=== PATIENT | male | born 1950 | race Caucasian/White ===

== ENCOUNTER → 2016-11-01 | Outpatient (CLI) | payer MEDICARE, BC ==
[2014-07-19 15:25] VITALS: BP 150/78
[~2016-11-01] MED LIST: ALLO300T PO; AMLO1CAP12 PO; BUPR-192 PO; BUPR150T15 PO; CELE200C PO; CRESTOR10 MG PO; CRESTOR20 MG PO; CRESTOR40 MG PO; DIAZ10TA4 PO; DOCU-109 PO; DULO60CA6 PO; FENO54TA PO; FURO80TA72 PO; GABA-586 PO; GLIM4TAB PO; GLIM4TAB2 PO; INSU100I13 SQ; LIDO20SO PO; METF500T PO; METF500T25 PO; METF500T4 PO; METH10TA2 PO; Methadone Hcl PO; Nicotine TD; OMEP20CA9 PO; POTA20TA12 PO; TIZA4TAB PO; TIZA4TAB8 PO; VENL75CA6 PO
--- NOTE | 2016-11-01 10:06 | RAD ---
Indication: Smoker and evaluate for abdominal aortic aneurysm. Proximal abdominal aorta measures 2.3 cm. The mid aorta is 2.1 cm. The distal aorta is 2.2 cm. No aneurysm is seen. There are atherosclerotic changes present. The iliacs are nonaneurysmal. Impression: No evidence of abdominal aortic aneurysm.
== END | disposition home or self-care (01) ==
LOC: US 08:25
PROVIDERS: ATTEND Family Medicine
DX: Z00.01 Encounter for general adult medical examination with abnormal findings (principal); I70.0 Atherosclerosis of aorta; F17.200 Nicotine dependence, unspecified, uncomplicated
CPT/HCPCS: 76770

== ENCOUNTER 2016-11-23 20:05 | Emergency (ER) | payer MEDICARE, BC ==
[~2016-11-23] VITALS: Ht 320 cm; Wt 74.4 kg
[2016-11-23] MEDS ORDERED: IV NORMAL SALINE 1,000ML 1,000 ML IV SCH (20:25)
--- NOTE | 2016-11-23 20:33 | ED.ADGEN ---
Past History Past Medical History: Depression, Diabetes, Hypertension, Other Past Surgical History: Other Smoking: Greater than 1 pack/day Alcohol Use: None Drug Use: None Adult General Chief Complaint Chief Complaint Fall [facility] HPI Patient is a 66 year old male who presents with a fall. He was walking his dog when the dog took off and he fell forwards landing on his right hand and forehead. He complains of a headache in the posterior aspect of his head and right hand pain. He denies any chest pain shortness of breath nausea vomiting. He is slurring his words a little bit his states that this can happen from time to time and it wasn't happening prior. He is alert and oriented 3. He does take methadone and Valium for chronic pain and did take these prior to arrival. Review of Systems Review of Systems Constitutional: Denies fever or chills [] Eyes: Denies change in visual acuity, redness, or eye pain [] HENT: Denies nasal congestion or sore throat [] Respiratory: Denies cough or shortness of breath [] Cardiovascular: No additional information not addressed in HPI [] GI: Denies abdominal pain, nausea, vomiting, bloody stools or diarrhea [] : Denies dysuria or hematuria [] Musculoskeletal: Denies back pain, positive for right hand pain Integument: Denies rash or skin lesions [] Neurologic: Denies focal weakness or sensory changes positive for posterior headache Endocrine: Denies polyuria or polydipsia [] Current Medications Current Medications Current Medications Medications (Trade) Dose Ordered Sig/Claudia Start Time Stop Time Status Last Admin Dose Admin Sodium Chloride 1,000 ml @ 1,000 mls/hr Q1H 11/23/16 20:25 11/23/16 21:24 DC 11/23/16 20:25 1,000 MLS/HR Allergies Allergies Allergies Coded Allergies Type Severity Reaction Last Updated Verified Sulfa (Sulfonamide Antibiotics) Allergy Intermediate 07/18/14 No liraglutide Allergy Intermediate 07/18/14 No quinine Allergy Intermediate 07/18/14 Yes Physical Exam Physical Exam Constitutional: Well developed, well nourished, no acute distress, non-toxic appearance. [] HENT: Normocephalic, atraumatic, bilateral external ears normal, oropharynx moist, no oral exudates, nose normal. [] Eyes: PERRLA, EOMI, conjunctiva normal, no discharge. [] Neck: Normal range of motion, no tenderness, supple, no stridor. [] Cardiovascular:Heart rate regular rhythm, no murmur [] Lungs & Thorax: Bilateral breath sounds clear to auscultation [] Abdomen: Bowel sounds normal, soft, no tenderness, no masses, no pulsatile masses. [] Skin: Warm, dry, no erythema, no rash. [] Back: No tenderness, no CVA tenderness. [] Extremities: Tender to palpation and ecchymosis over the right fifth medical carpal, able to flex and extend at the MCP and PIP DIP joints, radial ulnar median nerve distributions intact to sensation and motion., no cyanosis, no clubbing, ROM intact, no edema. [] Neurologic: Alert and oriented X 3, normal motor function, normal sensory function, no focal deficits noted. [] Psychologic: Affect normal, judgement normal, mood normal. [] Current Patient Data Vital Signs Vital Signs Date Time Temp Pulse Resp B/P (MAP) Pulse Ox O2 Delivery O2 Flow Rate FiO2 11/23/16 21:00 98.1 71 16 139/65 (89) 98 Room Air Lab Results Laboratory Tests Test 11/23/16 20:20 11/23/16 20:40 11/23/16 21:40 White Blood Count 7.3 x10^3/uL (4.0-11.0) Red Blood Count 3.90 x10^6/uL (4.30-5.70) L Hemoglobin 11.5 g/dL (13.0-17.5) L Hematocrit 34.5 % (39.0-53.0) L Mean Corpuscular Volume 88 fL (79-100) Mean Corpuscular Hemoglobin 30 pg (25-35) Mean Corpuscular Hemoglobin Concent 34 g/dL (31-37) Red Cell Distribution Width 14.8 % (11.5-14.5) H Platelet Count 188 x10^3/uL (140-400) Neutrophils (%) (Auto) 69 % (31-73) Lymphocytes (%) (Auto) 21 % (24-48) L Monocytes (%) (Auto) 6 % (0-9) Eosinophils (%) (Auto) 3 % (0-3) Basophils (%) (Auto) 1 % (0-3) Neutrophils # (Auto) 5.1 x10^3uL (1.8-7.7) Lymphocytes # (Auto) 1.5 x10^3/uL (1.0-4.8) Monocytes # (Auto) 0.5 x10^3/uL (0.0-1.1) Eosinophils # (Auto) 0.2 x10^3/uL (0.0-0.7) Basophils # (Auto) 0.0 x10^3/uL (0.0-0.2) Prothrombin Time 10.6 SEC (9.4-11.4) Prothrombin Time INR 1.0 (0.9-1.1) PTT 25 SEC (23-33) Sodium Level 144 mmol/L (136-145) Potassium Level 3.9 mmol/L (3.5-5.1) Chloride Level 107 mmol/L (98-107) Carbon Dioxide Level 30 mmol/L (21-32) Anion Gap 7 (6-14) Blood Urea Nitrogen 18 mg/dL (8-26) Creatinine 0.7 mg/dL (0.7-1.3) Estimated GFR (Cockcroft-Gault) 113.2 Glucose Level 214 mg/dL (70-99) H Calcium Level 8.6 mg/dL (8.5-10.1) Total Bilirubin 0.2 mg/dL (0.2-1.0) Direct Bilirubin 0.1 mg/dL (0.0-0.2) Aspartate Amino Transferase (AST) 13 U/L (15-37) L Alanine Aminotransferase (ALT) 18 U/L (16-63) Alkaline Phosphatase 70 U/L (46-116) Creatine Kinase 47 U/L (39-308) Creatine Kinase MB (Mass) 0.5 ng/mL (0.0-3.6) Creatine Kinase MB Relative Index 1.1 % (0-4) Total Protein 6.7 g/dL (6.4-8.2) Albumin 3.3 g/dL (3.4-5.0) L Lipase 59 U/L (73-393) L Ethyl Alcohol Level < 10 mg/dL (0-10) Lactic Acid Level 1.2 mmol/L (0.4-2.0) Urine Collection Type Unknown Urine Color Yellow Urine Clarity Cloudy Urine pH 8.5 Urine Specific Stephenson 1.015 Urine Protein Neg (NEG-TRACE) Urine Glucose (UA) Neg mg/dL (NEG) Urine Ketones (Stick) Neg mg/dL (NEG) Urine Blood Neg (NEG) Urine Nitrite Neg (NEG) Urine Bilirubin Neg (NEG) Urine Urobilinogen Dipstick 0.2 mg/dL (0.2 mg/dL) Urine Leukocyte Esterase Neg (NEG) Urine RBC 0 /HPF (0-2) Urine WBC Occ /HPF (0-4) Urine Squamous Epithelial Cells Occ /LPF Urine Amorphous Sediment Present /HPF Urine Bacteria 0 /HPF (0-FEW) Urine Opiates Screen Neg (NEG) Urine Methadone Screen Pos (NEG) Urine Barbiturates Neg (NEG) Urine Phencyclidine Screen Neg (NEG) Urine Amphetamine/Methamphetamine Neg (NEG) Urine Benzodiazepines Screen Pos (NEG) Urine Cocaine Screen Neg (NEG) Urine Cannabinoids Screen Pos (NEG) Urine Ethyl Alcohol Neg (NEG) EKG EKG EKG shows sinus rhythm left axis deviation, T-wave inversions in 1 and aVL, no ST elevations appreciated, QTC 139 ms, as interpreted by me. EKG is similar to one performed in October 03, 2013 except for the T-wave inversions in 1. Radiology/Procedures Radiology/Procedures 3 views of the right hand does not show any fractures, malalignment's, foreign bodies, as interpreted by me. One view chest x-ray does not show any focal consolidations, pneumothorax, bony abnormalities, [place] [address] IMAGING REPORT Signed PATIENT: JANINE CALIX ACCOUNT: [id number] : 1950 LOCATION: ER AGE: 66 SEX: M EXAM STATUS: PRE ER ORD. PHYSICIAN: JOHN HERNANDEZ MD REASON: fall, slurring words PROCEDURE: CT HEAD AND CERVICAL SPINE WO INDICATION: [id number] Injury from fall tonight, hit right side of forehead, swelling, neck pain. Old images sent from 05/21/16 for comparison. COMPARISON: May 21, 2016 TECHNIQUE: Axial CT images obtained through the head and cervical spine without intravenous contrast. Coronal and sagittal reformats processed of cervical spine. One or more of the following individualized dose reduction techniques were utilized for this examination: 1. Automated exposure control; 2. Adjustment of the mA and/or kV according to patient size; 3. Use of iterative reconstruction technique. FINDINGS: Head: No intracranial hemorrhage. No midline shift. Basal cisterns patents. Ventricles and sulci are within normal limits. No acute osseous abnormality. Orbits and paranasal sinuses unremarkable. Cervical: No definite acute fracture. No significant malalignment. No evidence of perivertebral hematoma. Degenerative changes throughout the cervical spine with osteophyte formation with central canal and neural foraminal stenosis. IMPRESSION: No acute intracranial hemorrhage. No definite acute fracture or dislocation of the cervical spine. Electronically signed by: Bo Vicente MD (11/23/2016 9:26 PM) DICTATED AND SIGNED BY: BO VICENTE MD DATE: 11/23/162116 CC: MONET DICKINSON MD; JOHN HERNANDEZ MD ~ Course & Med Decision Making Course & Med Decision Making Pertinent Labs and Imaging studies reviewed. (See chart for details) CT head neck is nonacute, hand x-ray also nonacute. Labs do not show any acute abnormalities. His slurring has improved his UDS is positive for benzos, marijuana, methadone. He states he has plenty pain meds at home for his contusion. He is being discharged with return precautions this time. Final Impression Final Impression Closed head injury Right hand contusion Problems: Dragon Disclaimer Dragon Disclaimer This electronic medical record was generated, in whole or in part, using a voice recognition dictation system. JOHN HERNANDEZ MD Nov 23, 2016 20:33
[2016-11-23 20:57] LABS: BASO % 1 % (0-3); EOS # 0.2 x10^3/uL (0.0-0.7); EOS % 3 % (0-3); HEMATOCRIT 34.5 % (39.0-53.0); HEMOGLOBIN 11.5 g/dL (13.0-17.5); LYMPH # 1.5 x10^3/uL (1.0-4.8); LYMPH % 21 % (24-48); MEAN CORPUSCULAR HEMOGLOBIN 30 pg (25-35); MEAN CORPUSCULAR HGB CONC 34 g/dL (31-37); MEAN CORPUSCULAR VOLUME 88 fL (79-100); MONO # 0.5 x10^3/uL (0.0-1.1); MONO % 6 % (0-9); NEUT # 5.1 x10^3uL (1.8-7.7); NEUT % 69 % (31-73); PLATELET COUNT 188 x10^3/uL (140-400); RED CELL DISTRIBUTION WIDTH 14.8 % (11.5-14.5); WHITE BLOOD COUNT 7.3 x10^3/uL (4.0-11.0)
[2016-11-23 21:00] VITALS: BP 139/65
[2016-11-23 21:14] LABS: ALBUMIN 3.3 g/dL (3.4-5.0); CALCIUM 8.6 mg/dL (8.5-10.1); CREATININE 0.7 mg/dL (0.7-1.3); DIRECT BILIRUBIN 0.1 mg/dL (0.0-0.2); GFR 113.2; POTASSIUM 3.9 mmol/L (3.5-5.1); TOTAL BILIRUBIN 0.2 mg/dL (0.2-1.0); TOTAL PROTEIN 6.7 g/dL (6.4-8.2)
--- NOTE | 2016-11-23 21:30 | RAD ---
INDICATION: [id number] Injury from fall tonight, hit right side of forehead, swelling, neck pain. Old images sent from 05/21/16 for comparison. COMPARISON: May 21, 2016 TECHNIQUE: Axial CT images obtained through the head and cervical spine without intravenous contrast. Coronal and sagittal reformats processed of cervical spine. One or more of the following individualized dose reduction techniques were utilized for this examination: 1. Automated exposure control; 2. Adjustment of the mA and/or kV according to patient size; 3. Use of iterative reconstruction technique. FINDINGS: Head: No intracranial hemorrhage. No midline shift. Basal cisterns patents. Ventricles and sulci are within normal limits. No acute osseous abnormality. Orbits and paranasal sinuses unremarkable. Cervical: No definite acute fracture. No significant malalignment. No evidence of perivertebral hematoma. Degenerative changes throughout the cervical spine with osteophyte formation with central canal and neural foraminal stenosis. IMPRESSION: No acute intracranial hemorrhage. No definite acute fracture or dislocation of the cervical spine. Electronically signed by: Zack Duarte MD (11/23/2016 9:26 PM)
[2016-11-23 22:16] LABS: AMPHETAMINE/METHAMPHETAMINE NEG (NEG); BARBITURATES NEG (NEG); BENZODIAZEPINES POS (NEG); CANNABINOIDS POS (NEG); COCAINE NEG (NEG); METHADONE POS (NEG); OPIATES NEG (NEG); PHENCYCLIDINE NEG (NEG)
[2016-11-23 22:19] LABS: BACTERIA,URINE 0 /HPF (0-FEW); BILIRUBIN,URINE NEG (NEG); CLARITY,URINE CLOUDY; COLOR,URINE YELLOW; GLUCOSE,URINE NEG (NEG); NITRITE,URINE NEG (NEG); RBC,URINE 0 /HPF (0-2); SQUAMOUS EPITHELIAL CELL,UR OCC /LPF; UROBILINOGEN,URINE 0.2 mg/dL (0.2 mg/dL); WBC,URINE OCC /HPF (0-4)
[2016-11-23 22:20] LABS: AMORPHOUS SEDIMENT,UR PRESENT /HPF
--- NOTE | 2016-11-24 06:09 | EKG ---
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
--- NOTE | 2016-11-24 07:47 | RAD ---
Indication: Right hand pain and swelling. Time of exam 2050 hours. There is soft tissue swelling noted about the dorsum of the hand. The metacarpals and phalanges appear intact. The carpus is unremarkable. No fractures are seen. Impression: Soft tissue swelling. No acute bony abnormality is detected.
--- NOTE | 2016-11-24 07:48 | RAD ---
Indication: Fall and weakness. Time of exam 6 hours. Correlation is made with prior study 05/21/2016. FINDINGS: The heart size is normal. The lungs are clear. No pleural effusion or pneumothorax is identified. The pulmonary vascularity is normal. IMPRESSION: No acute abnormality detected.
== END 2016-11-23 22:33 | disposition home or self-care (01) ==
LOC: ER 20:05
DX: S09.8XXA Other specified injuries of head, initial encounter (principal); S60.221A Contusion of right hand, initial encounter; I10 Essential (primary) hypertension; E11.9 Type 2 diabetes mellitus without complications; F17.200 Nicotine dependence, unspecified, uncomplicated; Z88.2 Allergy status to sulfonamides; Z88.8 Allergy status to other drugs, medicaments and biological substances; W19.XXXA Unspecified fall, initial encounter; Y93.K1 Activity, walking an animal; Y99.8 Other external cause status; Y92.89 Other specified places as the place of occurrence of the external cause
CPT/HCPCS: 36415; 70450; 71010; 72125; 73130; 80048; 80076; 80305; 80320; 81001; 82553; 83605; 83690; 85027; 85610; 85730; 93005; 96360; 96361; G0480; G0481; 99285-25; J7030

== ENCOUNTER 2017-08-02 09:54 | Emergency (ER) | payer MEDICARE, BC ==
[~2017-08-02] VITALS: Ht 320 cm; Wt 81.0 kg
[2017-08-02] MEDS ORDERED: IV NORMAL SALINE 1,000ML 1,000 ML IV SCH ×2 (10:24→12:38)
[2017-08-02 10:41] LABS: BASO % 0 % (0-3); EOS # 0.1 x10^3/uL (0.0-0.7); EOS % 2 % (0-3); HEMATOCRIT 40.4 % (39.0-53.0); HEMOGLOBIN 13.3 g/dL (13.0-17.5); LYMPH # 0.9 x10^3/uL (1.0-4.8); LYMPH % 18 % (24-48); MEAN CORPUSCULAR HEMOGLOBIN 30 pg (25-35); MEAN CORPUSCULAR HGB CONC 33 g/dL (31-37); MEAN CORPUSCULAR VOLUME 91 fL (79-100); MONO # 0.5 x10^3/uL (0.0-1.1); MONO % 9 % (0-9); NEUT # 3.6 x10^3uL (1.8-7.7); NEUT % 71 % (31-73); PLATELET COUNT 144 x10^3/uL (140-400); RED BLOOD COUNT 4.46 x10^6/uL (4.30-5.70); RED CELL DISTRIBUTION WIDTH 14.7 % (11.5-14.5)
[2017-08-02] MEDS ORDERED: IPRATRPIUM/ALBUTEROL 0.5/2.5MG 3 ML NEBU. NEB ONE (10:45)
[2017-08-02] MEDS ORDERED: methylPREDNISolone SOD SUCC PF 125 MG/2 ML VIAL. IV ONE (10:45)
[2017-08-02 10:57] LABS: ALBUMIN 3.2 g/dL (3.4-5.0); ALBUMIN/GLOBULIN RATIO 0.8 (1.0-1.7); CALCIUM 8.8 mg/dL (8.5-10.1); GFR 74.8; TOTAL BILIRUBIN 0.2 mg/dL (0.2-1.0); TOTAL PROTEIN 7.2 g/dL (6.4-8.2)
--- NOTE | 2017-08-02 11:12 | PHYS DOC ---
General Chief Complaint: SHORTNESS OF BREATH Stated Complaint: SOA Time Seen by MD: 10:04 Source: patient, family Exam Limitations: clinical condition Problems: History of Present Illness Initial Comments Patient is a 67-year-old male brought to the ED by his spouse with generalized fatigue. Spouse states that the patient was seen by his doctor on Saturday (Dr. Minor) and at that time his creatinine was elevated "twice his normal level." She states that since that time the patient has continued to be very sleepy and not eating or drinking much and so she decided to bring him in for evaluation. He's been taking an antibiotic prescribed by Dr. Minor uncertain of the name. Patient takes methadone and does appear to be medicated he falls asleep easily while you're talking with him but rouses easily as well. He denies any complaints at all. ED vitals: 98.8, 58, 20, 83/59, 80% room air increased to 91% on 2 L O2 nasal cannula. Patient denies any recent chest pain trouble breathing nausea diaphoresis headache or focal neurologic symptoms. Timing/Duration: other Severity: severe Modifying Factors: worse with medication, worse with movement, improves with rest Associated Symptoms: denies symptoms Allergies: Coded Allergies: Sulfa (Sulfonamide Antibiotics) (Unverified Allergy, Intermediate, 07/18/14 ) liraglutide (Unverified Allergy, Intermediate, 07/18/14) quinine (Verified Allergy, Intermediate, 07/18/14) Past Medical History Medical History: other (chronic pain, depression, diabetes, hypertension, COPD , obstructive sleep apnea, pneumothorax) Surgical History: other Social History Smoker: greater than 1 pack/day Alcohol: none Drugs: none Review of Systems Constitutional: see HPI Respiratory: denies cough, denies shortness of breath, denies wheezing Cardiovascular: denies chest pain, denies edema, denies palpitations, denies syncope Gastrointestinal: denies abdominal pain, denies diarrhea, denies nausea, denies vomiting Musculoskeletal: see HPI Psychiatric/Neurological: see HPI Physical Exam General Appearance: no apparent distress (sedate and lethargic on arrival, disheveled) Eyes: bilateral eye normal inspection, bilateral eye PERRL, bilateral eye EOMI Ear, Nose, Throat: hearing grossly normal, normal ENT inspection (dry membranes ), normal pharynx Neck: non-tender, supple Respiratory: respiratory distress, other (decreased breath sounds bilaterally with fair to good air movement and diffuse wheezes chest nontender) Cardiovascular: normal peripheral pulses, bradycardia Gastrointestinal: normal bowel sounds, non tender, soft Back: no CVA tenderness, no vertebral tenderness Extremities: non-tender, no pedal edema, no calf tenderness, pelvis stable Neurologic/Psychiatric: lug loader II-XII nml as tested, no motor/sensory deficits, normal mood/affect, other (lethargic appeared medicated initially, improves to alert and oriented 3) Skin: pallor (with poor turgor initially improved to normal color warm and dry) Orders, Labs, Meds EKG: sinus arrhythmia 58bpm, no ST segment elevation. Interpreted by me. ABG: pH 7.364, pCO2 44.4, pO2 45, BE 0, HCO3 25.3, TCO2 27, sO2 79, FIO2 21 Pertinent labs: BUN 32, creatinine 1, CO2 29 1205: Patient is now sitting up awake and alert talking on the phone with blood pressure 106/60 just about to finish the first liter normal saline bolus. 1240: Current blood pressure 101/61, O2 sat 91% on room air. I discussed the need for inpatient treatment with the patient at length. Patient states he will refuse admission he wants to go home at [birth year]. I advised him that is very likely if he goes home she will return to the same condition he was in at ED arrival or worse. He is currently alert and oriented 3 exhibits UCAR capacity and although I do disagree with his choice to go home he has the right to do so. Risks and benefits of staying versus leaving were discussed with him, risks of leaving included worsening of condition, loss of quality of life and/ or . Potential benefits of staying are early diagnosis and treatment of an easily treatable condition potentially lifesaving. After thoroughly discussing the issues the patient remains steadfast in his wish to be discharged. Patient' s spouse and I both strongly encourage the patient to agree to inpatient treatment but he would not. I discussed prednisone burst and close glycemic monitoring, discussed medications and hydration. Discussed signs and symptoms to monitor as well as urgent indications to return to the department. The patient and his spouse's questions were answered and they expressed agreement and understanding with the treatment departure instructions below. Impressions: Decreased alertness (overmedication with opiates versus hypoxia) Acute respiratory failure Severe dehydration COPD exacerbation Tobaccoism Noncompliance/AMA Departure Time of Disposition: 12:51 Disposition: 01 HOME, SELF-CARE Diagnosis: COPD Exacerbation, Hypovolemia, Acute on Chronic R Condition: GUARDED Patient Instructions: Chronic Obstructive Pulmonary Disease Exacerbation, Easy- to-Read, Dehydration, Adult, Uzug-ip-Cvhd, Hypoxemia Additional Instructions: As discussed inpatient treatment has been recommended to you and you have declined. Risks and benefits of staying versus leaving have been discussed with you, risks of leaving our potentially worsening of your condition, loss of quality of life and or . Benefits of staying are potentially life saving, early diagnosis and treatment of an underlying condition. Stop smoking seek medical assistance if necessary. Continue current medications and breathing treatments. Aggressive hydration with Gatorade and water. Drink fluids until your urine is clear. Prescription: Prednisone 20 mg twice daily for 5 days. Closely monitor your glucose as the prednisone will likely increase it, called Dr. Minor or return to the emergency department if your glucose increases significantly. Understand are welcome to return at any time. Follow-up with Dr. Minor on Saturday. Return to ED if you change your mind or if new/changing symptoms. PETER KING DO Aug 02, 2017 11:12
[2017-08-02 11:45] LABS: BGAS PH 7.36 (7.35-7.46)
[2017-08-02] MEDS ORDERED: PRED20TA PO (12:59)
[2017-08-02 13:20] VITALS: BP 110/73
--- NOTE | 2017-08-02 13:23 | RAD ---
INDICATION: Short of air, fatigue. TECHNIQUE: Upright portable chest radiograph was obtained. Comparison is not available. FINDINGS: The heart is upper limits of normal in size. The pulmonary vasculature appears mildly cephalized, even allowing for portable technique. There is atheromatous disease in the thoracic aorta. There is no focal airspace disease. There is no pleural effusion. There are degenerative changes at the right AC joint. Leads overlie the patient. IMPRESSION: Mild vascular congestion suspected. Electronically signed by: Esau Soto MD (08/02/2017 1:20 PM) [id number]
--- NOTE | 2017-08-02 19:08 | EKG ---
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 POSSIBLY ABNORMAL ECG RI6.01 Electronically Signed On 08-05-2017 16:12:47 BANK RECONCILIATOR by Guanako Zarco
== END 2017-08-02 13:20 | disposition home or self-care (01) ==
LOC: ER 09:54
DX: J44.1 Chronic obstructive pulmonary disease with (acute) exacerbation (principal); E86.1 Hypovolemia; J96.20 Acute and chronic respiratory failure, unspecified whether with hypoxia or hypercapnia; Z91.19 Patient's noncompliance with other medical treatment and regimen; I10 Essential (primary) hypertension; G89.29 Other chronic pain; G47.33 Obstructive sleep apnea (adult) (pediatric); E86.0 Dehydration; E11.9 Type 2 diabetes mellitus without complications; F17.200 Nicotine dependence, unspecified, uncomplicated; Z88.2 Allergy status to sulfonamides; Z88.8 Allergy status to other drugs, medicaments and biological substances
CPT/HCPCS: 99285; J2930; J7620; 36415; 71045; 80053; 82803; 83880; 84484; 85025; 93005; 94640; 96361; 96374; J7030

== ENCOUNTER 2017-08-04 11:50 | Inpatient (IN) | payer MEDICARE, BC ==
[~2017-08-04] VITALS: Ht 175.3 cm; Wt 74.4 kg
[~2017-08-04 11:50] MED LIST changes: +PRED20TA PO
[2017-08-04 13:07] LABS: BASO % 0 % (0-3); EOS % 0 % (0-3); HEMATOCRIT 37.7 % (39.0-53.0); HEMOGLOBIN 12.5 g/dL (13.0-17.5); LYMPH # 0.6 x10^3/uL (1.0-4.8); LYMPH % 12 % (24-48); MEAN CORPUSCULAR HEMOGLOBIN 30 pg (25-35); MEAN CORPUSCULAR HGB CONC 33 g/dL (31-37); MEAN CORPUSCULAR VOLUME 90 fL (79-100); MONO # 0.3 x10^3/uL (0.0-1.1); MONO % 5 % (0-9); NEUT # 4.2 x10^3uL (1.8-7.7); NEUT % 83 % (31-73); PLATELET COUNT 137 x10^3/uL (140-400); RED CELL DISTRIBUTION WIDTH 14.3 % (11.5-14.5); WHITE BLOOD COUNT 5.1 x10^3/uL (4.0-11.0)
--- NOTE | 2017-08-04 13:09 | RAD ---
AP PORTABLE CHEST Clinical Indication: shortness of breath. History of COPD Comparison: AP chest, 2 days ago. Findings: The cardiomediastinal silhouette is stable. Lungs are clear. There is no pneumothorax. No pleural effusion is appreciated. There is no acute bone abnormality. IMPRESSION: No acute cardiopulmonary process.
[2017-08-04 13:25] LABS: ALBUMIN 3.3 g/dL (3.4-5.0); ALBUMIN/GLOBULIN RATIO 0.9 (1.0-1.7); CREATININE 0.8 mg/dL (0.7-1.3); GFR 96.7; MAGNESIUM 1.2 mg/dL (1.8-2.4); POTASSIUM 4.8 mmol/L (3.5-5.1); TOTAL BILIRUBIN 0.2 mg/dL (0.2-1.0)
[2017-08-04 13:37] LABS: BACTERIA,URINE 0 /HPF (0-FEW); BILIRUBIN,URINE NEG (NEG); CLARITY,URINE CLEAR; COLOR,URINE YELLOW; GLUCOSE,URINE 100 mg/dL (NEG); NITRITE,URINE NEG (NEG); RBC,URINE RARE /HPF (0-2); UROBILINOGEN,URINE 0.2 mg/dL (0.2 mg/dL); WBC,URINE 0 /HPF (0-4)
[2017-08-04 13:38] LABS: SQUAMOUS EPITHELIAL CELL,UR OCC /LPF
[2017-08-04] MEDS ORDERED: IV NORMAL SALINE 1,000ML 1,000 ML IV ONE (13:45)
[2017-08-04] MEDS ORDERED: IV NORMAL SALINE 50ML 50 ML ONE (13:54)
[2017-08-04] MEDS ORDERED: PIPERACILLIN/TAZOBACTAM 3.375 GM VIAL IV ONE (13:54)
[2017-08-04] MEDS ORDERED: VANCOMYCIN 1 GM in IV NORMAL SALINE 250ML 250 ML IV ONE (14:00)
[2017-08-04] MEDS ORDERED: PIPERACILLIN/TAZOBACTAM 3.375 GM in IV NORMAL SALINE 50ML 50 ML IV ONE (14:00)
[2017-08-04] MEDS ORDERED: VANCOMYCIN 2 GM in IV NORMAL SALINE 500ML 500 ML IV ONE (14:30)
[2017-08-04] MEDS ORDERED: MAGNESIUM SULFATE 2GM 50 ML IV ONE ×2 (14:45→17:30)
--- NOTE | 2017-08-04 15:08 | PHYS DOC ---
Past History Past Medical History: Depression, Diabetes, Hypertension, Other Past Surgical History: Other Smoking: Greater than 1 pack/day Alcohol Use: None Drug Use: None Adult General Chief Complaint Chief Complaint: shortness of breath and cough HPI HPI 67-year-old male patient with history of COPD on nighttime home oxygen and currently not smoking complaining of increasing chronic shortness of breath for more than one week with productive and nonproductive cough associated with nasal congestion and generalized weakness and increasing confusion. Patient was seen by his primary care physician 5 days ago and diagnosed with increasing renal insufficiency. Patient was seen in this emergency room 3 days ago diagnosis of hypoxia and refused admission and discharged home with prescription of prednisone and antibiotic but he states his condition is not getting better. Patient had increase of confusion and generalized weakness and cough without fever, vomiting and diarrhea, chest pain, focal neuro deficit. Review of Systems Review of Systems Constitutional: Denies fever or chills [] Eyes: Denies change in visual acuity, redness, or eye pain [] HENT: Reports nasal congestion Respiratory: Reports cough and shortness of breath Cardiovascular: No additional information not addressed in HPI [] GI: Denies abdominal pain, nausea, vomiting, bloody stools or diarrhea [] : Denies dysuria or hematuria [] Musculoskeletal: Denies back pain or joint pain [] Integument: Denies rash or skin lesions [] Neurologic: Denies headache, focal weakness or sensory changes [] Endocrine: Denies polyuria or polydipsia [] All other systems were reviewed and found to be within normal limits, except as documented in this note. Current Medications Current Medications Current Medications Medications (Trade) Dose Ordered Sig/Claudia Start Time Stop Time Status Last Admin Dose Admin Magnesium Sulfate 50 ml @ 25 mls/hr 1X ONCE 08/04/17 14:45 08/04/17 16:44 UNV Piperacillin Sod/ Tazobactam Sod (Zosyn) 3.375 gm STK-MED ONCE 08/04/17 13:54 08/04/17 13:55 DC Piperacillin Sod/ Tazobactam Sod 3.375 gm/Sodium Chloride 50 ml @ 100 mls/hr 1X ONCE 08/04/17 14:00 08/04/17 14:29 DC Sodium Chloride 50 ml @ As Directed STK-MED ONCE 08/04/17 13:54 08/04/17 13:55 DC Vancomycin HCl 1 gm/Sodium Chloride 250 ml @ 250 mls/hr 1X ONCE 08/04/17 14:00 08/04/17 14:59 Cancel Vancomycin HCl 2 gm/Sodium Chloride 500 ml @ 250 mls/hr 1X ONCE 08/04/17 14:30 08/04/17 16:29 Allergies Allergies Allergies Coded Allergies Type Severity Reaction Last Updated Verified Sulfa (Sulfonamide Antibiotics) Allergy Intermediate 07/18/14 No liraglutide Allergy Intermediate 07/18/14 No quinine Allergy Intermediate 07/18/14 Yes Physical Exam Physical Exam Constitutional: Mild distress, non-toxic appearance. [] HENT: Normocephalic, atraumatic, bilateral external ears normal, oropharynx moist, no oral exudates.[] Eyes: PERRLA, EOMI, conjunctiva normal, no discharge. [] Neck: Normal range of motion, no tenderness, supple, no stridor. [] Cardiovascular:Heart rate regular rhythm, no murmur [] Lungs & Thorax: Decrease of air movement, bilateral mild rales Abdomen: Bowel sounds normal, soft, no tenderness, no masses, no pulsatile masses. [] Skin: Warm, dry, no erythema, no rash. [] Back: No tenderness, no CVA tenderness. [] Extremities: No tenderness, no cyanosis, no clubbing, ROM intact, no edema. [] Neurologic: Alert and oriented X 3, normal motor function, normal sensory function, no focal deficits noted. [] Current Patient Data Lab Results Laboratory Tests Test 08/04/17 12:30 08/04/17 12:40 Urine Collection Type Unknown Urine Color Yellow Urine Clarity Clear Urine pH 6.5 Urine Specific [place] 1.010 Urine Protein Neg (NEG-TRACE) Urine Glucose (UA) 100 mg/dL (NEG) Urine Ketones (Stick) Neg mg/dL (NEG) Urine Blood Neg (NEG) Urine Nitrite Neg (NEG) Urine Bilirubin Neg (NEG) Urine Urobilinogen Dipstick 0.2 mg/dL (0.2 mg/dL) Urine Leukocyte Esterase Neg (NEG) Urine RBC Rare /HPF (0-2) Urine WBC 0 /HPF (0-4) Urine Squamous Epithelial Cells Occ /LPF Urine Bacteria 0 /HPF (0-FEW) White Blood Count 5.1 x10^3/uL (4.0-11.0) Red Blood Count 4.20 x10^6/uL (4.30-5.70) L Hemoglobin 12.5 g/dL (13.0-17.5) L Hematocrit 37.7 % (39.0-53.0) L Mean Corpuscular Volume 90 fL (79-100) Mean Corpuscular Hemoglobin 30 pg (25-35) Mean Corpuscular Hemoglobin Concent 33 g/dL (31-37) Red Cell Distribution Width 14.3 % (11.5-14.5) Platelet Count 137 x10^3/uL (140-400) L Neutrophils (%) (Auto) 83 % (31-73) H Lymphocytes (%) (Auto) 12 % (24-48) L Monocytes (%) (Auto) 5 % (0-9) Eosinophils (%) (Auto) 0 % (0-3) Basophils (%) (Auto) 0 % (0-3) Neutrophils # (Auto) 4.2 x10^3uL (1.8-7.7) Lymphocytes # (Auto) 0.6 x10^3/uL (1.0-4.8) L Monocytes # (Auto) 0.3 x10^3/uL (0.0-1.1) Eosinophils # (Auto) 0.0 x10^3/uL (0.0-0.7) Basophils # (Auto) 0.0 x10^3/uL (0.0-0.2) Prothrombin Time 11.1 SEC (9.4-11.4) Prothrombin Time INR 1.1 (0.9-1.1) Sodium Level 137 mmol/L (136-145) Potassium Level 4.8 mmol/L (3.5-5.1) Chloride Level 101 mmol/L (98-107) Carbon Dioxide Level 26 mmol/L (21-32) Anion Gap 10 (6-14) Blood Urea Nitrogen 19 mg/dL (8-26) Creatinine 0.8 mg/dL (0.7-1.3) Estimated GFR (Cockcroft-Gault) 96.7 BUN/Creatinine Ratio 24 (6-20) H Glucose Level 254 mg/dL (70-99) H Lactic Acid Level 3.0 mmol/L (0.4-2.0) H Calcium Level 9.0 mg/dL (8.5-10.1) Magnesium Level 1.2 mg/dL (1.8-2.4) L Total Bilirubin 0.2 mg/dL (0.2-1.0) Aspartate Amino Transferase (AST) 14 U/L (15-37) L Alanine Aminotransferase (ALT) 24 U/L (16-63) Alkaline Phosphatase 63 U/L (46-116) Creatine Kinase 60 U/L (39-308) Creatine Kinase MB (Mass) 1.5 ng/mL (0.0-3.6) Creatine Kinase MB Relative Index 2.5 % (0-4) Troponin I Quantitative < 0.017 ng/mL (0-0.055) OI-Cpa-O-Type Natriuretic Peptide 403 pg/mL (0-124) H Total Protein 7.0 g/dL (6.4-8.2) Albumin 3.3 g/dL (3.4-5.0) L Albumin/Globulin Ratio 0.9 (1.0-1.7) L EKG EKG [] Radiology/Procedures Radiology/Procedures [] [address] [address] IMAGING REPORT Signed PATIENT: JANINE CALIX ACCOUNT: [id number] : 1950 LOCATION: ER AGE: 67 SEX: M EXAM STATUS: REG ER ORD. PHYSICIAN: DAHLIA MORENO MD REASON: shortness of breath PROCEDURE: PORTABLE CHEST 1V AP PORTABLE CHEST Clinical Indication: shortness of breath. History of COPD Comparison: AP chest, 2 days ago. Findings: The cardiomediastinal silhouette is stable. Lungs are clear. There is no pneumothorax. No pleural effusion is appreciated. There is no acute bone abnormality. IMPRESSION: No acute cardiopulmonary process. DICTATED AND SIGNED BY: ANDREY JOHNS MD DATE: 08/04/17 [id number] CC: MONET DICKINSON MD; DAHLIA MORENO MD ~ Course & Med Decision Making Course & Med Decision Making Pertinent Labs and Imaging studies reviewed. (See chart for details) Evaluation of patient in ER showed 67-year-old male patient with history of COPD on nighttime oxygen presented to ER for the second time the cause of increasing shortness of breath without this point outpatient treatment. Patient had O2 sats of 89% at room air improved with oxygen to 94%. Patient had unremarkable chest x-ray. Lactic acid was 3.0. Plan to admit patient with diagnosis of COPD exacerbation and elevation of lactic acid and uncontrolled diabetes mellitus. IV fluid and antibiotic was started on plan to repeat lactic acid in [address] Meier accepted admission at 1340. Patient and his family informed about plan of care. Dragon Disclaimer Dragon Disclaimer This electronic medical record was generated, in whole or in part, using a voice recognition dictation system. Departure Departure: Impression: Primary Impression: Sepsis Additional Impressions: COPD exacerbation Uncontrolled diabetes mellitus Anxiety Elevated brain natriuretic peptide (BNP) level Disposition: ADMITTED INPATIENT (At 1340) Admitting Physician: Chey Meier Condition: IMPROVED Referrals: MONET DICKINSON MD (PCP) Problem Qualifiers DAHLIA MORENO MD Aug 04, 2017 15:08
[2017-08-04 15:54] VITALS: BP 136/64
[2017-08-04] MEDS ORDERED: DEXTROSE 50% 25 GM / 50ML DISP.SYRIN. IV PRN (16:45)
[2017-08-04] MEDS ORDERED: QUET50TA5 PO (16:53)
[2017-08-04] MEDS ORDERED: BIOT25006 PO (16:53)
[2017-08-04] MEDS ORDERED: METF500T4 PO (16:53)
[2017-08-04] MEDS ORDERED: DOXY100C2 PO (16:53)
[2017-08-04] MEDS ORDERED: FERR325T14 PO (16:53)
[2017-08-04] MEDS ORDERED: SUCR1TAB PO (16:53)
[2017-08-04] MEDS ORDERED: GLUC1CAP48 PO (16:53)
[2017-08-04] MEDS ORDERED: AMLO1CAP12 PO (16:53)
[2017-08-04] MEDS ORDERED: ARIP30TA4 PO (16:53)
[2017-08-04] MEDS ORDERED: METH10TA2 PO (16:53)
[2017-08-04] MEDS ORDERED: PRED20TA PO (16:53)
[2017-08-04] MEDS ORDERED: MULT1TAB97 PO (16:53)
[2017-08-04] MEDS ORDERED: tiZANidine 4 MG TABLET. PO PRN (18:15)
[2017-08-04] MEDS ORDERED: MULT-246 PO (18:18)
[2017-08-04] MEDS ORDERED: POTA10CA PO (18:18)
[2017-08-04] MEDS ORDERED: TIZA4TAB PO (18:18)
[2017-08-04] MEDS ORDERED: DOCU-109 PO (18:28)
[2017-08-04] MEDS ORDERED: CRESTOR20 MG PO (18:28)
[2017-08-04 19:57] VITALS: BP 128/77
[2017-08-04] MEDS: INSULIN ASPART 300 UNITS/3 ML INSULN.PEN SQ SCH (21:00)
[2017-08-04] MEDS: POTASSIUM CHLORIDE 10 MEQ TABLET.ER. PO SCH ×2 (21:00→22:08)
[2017-08-04] MEDS: ATORVASTATIN CALCIUM 20 MG TABLET PO SCH (22:04)
[2017-08-04] MEDS: QUEtiapine 50 MG TABLET. PO SCH (22:06)
[2017-08-04] MEDS: METHADONE 5 MG TABLET. PO SCH (22:06)
[2017-08-04] MEDS: diazePAM 5 MG TABLET PO SCH (22:06)
[2017-08-04] MEDS: DULoxetine HCL 60 MG CAPSULE.DR PO SCH (22:08)
[2017-08-04] MEDS: methylPREDNISolone SOD SUCC PF 40 MG/ML VIAL. IV SCH (22:08)
[2017-08-04] MEDS: IPRATRPIUM/ALBUTEROL 0.5/2.5MG 3 ML NEBU. NEB SCH (22:17)
[2017-08-04 23:40] VITALS: BP_SYST 119; BP_SYST 133; BP_DIAS 68; BP_DIAS 79
--- NOTE | 2017-08-04 23:53 | EKG ---
[address] [address] Test Date: 2017-08-04 Test Time: 13:07:08 Pat Name: JANINE CALIX Department: Room: 120 A Gender: M [employer] Developer: SOFIA : 1950 Requested By: DAHLIA MORENO Order Number: [id number] Reading MD: Guanako Zarco Measurements Intervals [place] Rate: 69 P: 41 NE: 140 QRS: -14 QRSD: 88 T: 67 QT: 398 QTc: 428 Interpretive Statements SINUS RHYTHM LEFTWARD AXIS NONSPECIFIC ST-T WAVE CHANGES. ABNORMAL ECG RI6.01 Compared to ECG 11/23/2016 21:07:15 No significant changes Electronically Signed On 08-05-2017 16:45:56 MARINE FIRER by Guanako Zarco
[2017-08-05] MEDS: methylPREDNISolone SOD SUCC PF 40 MG/ML VIAL. IV SCH ×3 (05:36→21:19)
[2017-08-05] MEDS: IPRATRPIUM/ALBUTEROL 0.5/2.5MG 3 ML NEBU. NEB SCH ×4 (05:55→20:06)
[2017-08-05 06:20] VITALS: BP 110/67
[2017-08-05 06:49] LABS: ALBUMIN 3.2 g/dL (3.4-5.0); ALBUMIN/GLOBULIN RATIO 0.8 (1.0-1.7); CREATININE 0.6 mg/dL (0.7-1.3); GFR 134.8; POTASSIUM 4.3 mmol/L (3.5-5.1); TOTAL BILIRUBIN 0.2 mg/dL (0.2-1.0); TOTAL PROTEIN 7.4 g/dL (6.4-8.2)
[2017-08-05] MEDS: metFORMIN 500 MG TABLET PO SCH ×3 (08:33→17:06)
[2017-08-05] MEDS: ALLOPURINOL 300 MG TABLET. PO SCH (08:35)
[2017-08-05] MEDS: ARIPiprazole 15 MG TABLET PO SCH (08:35)
[2017-08-05] MEDS: diazePAM 5 MG TABLET PO SCH ×2 (08:35→19:49)
[2017-08-05] MEDS: CELECOXIB 200 MG CAPSULE PO SCH (08:35)
[2017-08-05] MEDS: FENOFIBRATE NANOCRYSTALLIZED 48 MG TABLET PO SCH (08:35)
[2017-08-05] MEDS: DOCUSATE SODIUM 100 MG CAPSULE PO SCH (08:35)
[2017-08-05] MEDS: PANTOPRAZOLE 40 MG TABLET. PO SCH (08:36)
[2017-08-05] MEDS: METHADONE 5 MG TABLET. PO SCH ×3 (08:36→19:48)
[2017-08-05] MEDS: QUEtiapine 50 MG TABLET. PO SCH ×3 (08:37→19:49)
[2017-08-05] MEDS: POTASSIUM CHLORIDE 10 MEQ TABLET.ER. PO SCH ×2 (08:37→19:53)
[2017-08-05] MEDS: FERROUS SULFATE 325 MG TABLET. PO SCH (08:37)
[2017-08-05] MEDS: SUCRALFATE 1 GM TABLET. PO SCH ×3 (08:37→17:06)
[2017-08-05] MEDS: LISINOPRIL 20 MG TABLET PO SCH (08:38)
[2017-08-05] MEDS: amLODIPine BESYLATE 10 MG TABLET PO SCH (08:38)
[2017-08-05] MEDS: DULoxetine HCL 60 MG CAPSULE.DR PO SCH ×2 (08:39→19:49)
[2017-08-05] MEDS: MULTIVITAMIN with MINERAL TABLET. PO SCH (08:39)
[2017-08-05] MEDS: NICOTINE 14MG PATCH. TD PRN (08:42)
[2017-08-05] MEDS: INSULIN ASPART 300 UNITS/3 ML INSULN.PEN SQ SCH ×4 (08:54→20:01)
[2017-08-05] MEDS ORDERED: NON FORMULARY ITEM (Gluc 2KCL/Chondr/Coll Hy/Hy Ac (Glucosamine & Chondroitin Cap) 2 EACH) PO SCH (09:00)
[2017-08-05] MEDS ORDERED: NON FORMULARY ITEM (Biotin 5,000 MCG) PO SCH (09:00)
[2017-08-05 10:45] VITALS: BP 151/86
[2017-08-05 15:04] VITALS: BP 135/76
[2017-08-05] MEDS ORDERED: MAGNESIUM SULFATE 2GM 50 ML IV ONE (17:00)
[2017-08-05 18:35] VITALS: BP 131/77
[2017-08-05] MEDS: DOXYCYCLINE HYCLATE 100 MG TABLET PO SCH (19:47)
[2017-08-05] MEDS: LACTOBACILLUS RHAMNOSUS GG 1 CAPSULE. PO SCH (19:47)
[2017-08-05] MEDS: MAGNESIUM OXIDE 400 MG TABLET PO SCH (19:48)
[2017-08-05] MEDS: ATORVASTATIN CALCIUM 20 MG TABLET PO SCH (19:52)
--- NOTE | 2017-08-05 20:42 | HP ---
ADMIT DATE: 08/04/2017 HISTORY OF PRESENT ILLNESS: The patient is a 67-year-old male patient who came to the Emergency Room with a complaint of cough with shortness of breath and yellowish sputum that has been going on for almost a week associated with dizziness and pain in his back and leg, generalized weakness. He apparently was seen in the Emergency Room 3 days prior to admission with hypoxia and refused admission and was discharged home with a prescription of prednisone antibiotic, but he states that his condition is not getting better and according to his , he has increased confusion, generalized weakness, and cough, was admitted with a diagnosis of COPD exacerbation, sepsis, poorly controlled and elevated beta natriuretic peptide as well as increased anxiety. PAST MEDICAL HISTORY: Significant for type 2 diabetes mellitus, hypertension, hyperlipidemia, COPD/emphysema, on 2 liters of oxygen by nasal cannula. He is also known to have obstructive sleep apnea. PAST SURGICAL HISTORY: Significant for back surgery, nasal surgery, bilateral cataract extraction and resection of skin cancer from the left side of the nasal bridge. ALLERGIES: He is allergic to SULFA, LIRAGLUTIDE, and QUININE as well as BENADRYL. MEDICATIONS: He is currently on following medications: He is on allopurinol 300 mg once a day, amlodipine/benazepril 10/20 one tablet once a day, aripiprazole for Abilify 30 mg once a day, biotin 2500 mcg, he takes 5000 p.o. daily, Celebrex 200 mg daily, diazepam 10 mg b.i.d., Colace 100 mg twice a day, doxycycline hyclate 100 mg twice a day, duloxetine 60 mg twice a day, fenofibrate 54 mg at bedtime, ferrous sulfate 325 mg once a day, glucosamine chondroitin sulfate 2 tablets daily, metformin 500 mg 3 times a day with meals, methadone 10 mg 3 times a day, multivitamin 1 tablet once a day, omeprazole 40 mg once a day, potassium chloride 20 mEq once a day, prednisone 20 mg daily, quetiapine fumarate 50 mg 3 times a day, Crestor 20 mg at bedtime, sucralfate 1 gram 3 times a day, tizanidine 4 mg twice a day. FAMILY HISTORY: He has one older sister that has fibromyalgia and osteoarthritis. His father at age of 79 because of diabetes, CVA, and Alzheimer's. Mother also of diabetes, CVA, and Alzheimer disease. SOCIAL HISTORY: He is , has 1 son from apparently previous marriage. He smokes about half a pack a day. Does not drink alcohol. 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 REVIEW OF SYSTEMS: The patient did complain of blurring of vision. He has cataract and apparently has macular degeneration. Denied any glaucoma. Denied any earache, tinnitus, or sensorineural deafness. Denied any nosebleeds, stuffy nose, or postnasal drip. Denied any sore throat, sore tongue, toothache, hoarseness of voice, or difficulty swallowing. Denied any nausea, vomiting, diarrhea, or constipation. Did have an unintentional weight loss of 75 pound. Denied any hematemesis, melena, or hematochezia. Did complain of constipation as he is on narcotics. Denied any dysuria, frequency, or hematuria. Denied any chest pain. Did complain of shortness of breath. Denied any orthopnea, paroxysmal nocturnal dyspnea. He did complain of cough with yellow sputum. He also complained of dizziness, but no vertigo. PHYSICAL EXAMINATION: GENERAL: On arrival to the Emergency Room, he apparently looked well and was clearly in no apparent respiratory distress, pale, but no jaundice, cyanosis, or thyromegaly. No jugular venous distension. No limb edema. VITAL SIGNS: His heart rate was 73, blood pressure was 136/64, temperature was 98.6, respiratory rate was 18, and oxygen saturation was 95% on 2 liters of oxygen. HEAD, EYES, EARS, NOSE, AND THROAT: Normocephalic, atraumatic. NECK: Supple. HEART: Showed normal first and second sounds. No gallop, rub, or murmur. CHEST: Clear to auscultation. No crepitation or rhonchi. ABDOMEN: Distended, soft, nontender. No guarding or rigidity. No organomegaly. All hernial orifices intact. Bowel sounds normal. NEUROLOGIC: He was awake, alert, responding appropriately. All cranial nerves intact. He moves extremities without difficulty. LABORATORY DATA: On admission showed a white cell count 5000, hemoglobin 12.5, hematocrit 37.7, MCV 90, and platelet count of 137,000 with normal manual differential. His prothrombin time 11.1, INR 1.1. His chemistry showed that his serum sodium was 137, potassium 4.8, chloride 101, bicarbonate 26, anion gap of 10, BUN 19, creatinine 0.8, estimated GFR was 97 mL per minute. His glucose was , calcium was 9. Lactic acid was slightly high at 3. His magnesium was low at 1.2. Total bilirubin, AST, ALT, alkaline phosphatase were normal. His total protein was 7, albumin was 3.3. Urinalysis was essentially unremarkable. His chest x-ray showed that he has the cardiomediastinal silhouette is stable. Lungs are clear. There is no pneumothorax. No pleural effusion is appreciated. There is no acute bony abnormality. IMPRESSION: In summary, this is a 67-year-old male patient who came in with: 1. Probably acute tracheobronchitis. 2. Chronic obstructive pulmonary disease exacerbation. Plan is to continue with all his current medication. His steroid was increased to 40 mg IV q.8 hourly. He was given 50 magnesium sulfate IV and we will probably continue with the doxycycline and follow him closely and decide on further management accordingly. JUAN MANUEL RAMOS MD DR: KAMINI/bell JOB#: [id number] / [id number]
[2017-08-05 23:04] VITALS: BP 151/73
--- NOTE | 2017-08-06 04:18 | PN ---
DATE: 08/05/2017 SUBJECTIVE: The patient is resting, slightly propped up in bed, no apparent distress. He continued to complain of shortness of breath, cough with yellow sputum. PHYSICAL EXAMINATION: GENERAL: However, when I examined him this afternoon, he looked well and was clearly in no apparent respiratory distress, pale, but no jaundice, cyanosis, or thyromegaly. No jugular venous distension. No lower limb edema. VITAL SIGNS: His heart rate was 63, blood pressure was 135/76, temperature was 97.5, respiratory rate was 22 and oxygen saturation was 95% on 2 liters of oxygen. HEAD, EYES, EARS, NOSE AND THROAT: Showed normocephalic, atraumatic. NECK: Supple. HEART: Showed normal first and second sounds. No gallop, rub, or murmur. CHEST: Clear to auscultation. No crepitation or rhonchi. ABDOMEN: Distended, soft, nontender. No guarding or rigidity. No organomegaly. Hernial orifices intact. Bowel sounds normal. NEUROLOGIC: He was awake, alert. He has poor vision, but all other cranial nerves are intact. EXTREMITIES: He moves extremities without difficulty, he ambulates with a cane. LABORATORY WORK: This morning showed a serum sodium 141, potassium 4.3, chloride 103, bicarbonate 30, anion gap of 8, BUN 17, creatinine 0.6, estimated GFR was 134 mL per minute, his glucose 176, calcium was 9. Total bilirubin, AST, ALT, alkaline phosphatase were normal. His total protein was 7.4, albumin 3.2. ASSESSMENT: 1. Acute tracheobronchitis. 2. Chronic obstructive pulmonary disease exacerbation. Other medical problems include hypertension, hyperlipidemia, type 2 diabetes, and obstructive sleep apnea. JUAN MANUEL RAMOS MD DR: KAMINI/bell JOB#: [id number] / [id number]
[2017-08-06] MEDS: methylPREDNISolone SOD SUCC PF 40 MG/ML VIAL. IV SCH ×2 (05:09→14:13)
[2017-08-06] MEDS: IPRATRPIUM/ALBUTEROL 0.5/2.5MG 3 ML NEBU. NEB SCH ×4 (05:15→20:54)
[2017-08-06] MEDS: PANTOPRAZOLE 40 MG TABLET. PO SCH ×2 (05:41→08:20)
[2017-08-06] MEDS: SUCRALFATE 1 GM TABLET. PO SCH ×3 (05:41→16:54)
[2017-08-06 06:04] VITALS: BP 146/84
[2017-08-06 07:10] LABS: HEMATOCRIT 40.4 % (39.0-53.0); HEMOGLOBIN 13.4 g/dL (13.0-17.5); RED BLOOD COUNT 4.51 x10^6/uL (4.30-5.70); RED CELL DISTRIBUTION WIDTH 13.9 % (11.5-14.5); WHITE BLOOD COUNT 5.7 x10^3/uL (4.0-11.0)
[2017-08-06 07:19] LABS: ALBUMIN 3.2 g/dL (3.4-5.0); ALBUMIN/GLOBULIN RATIO 0.7 (1.0-1.7); CALCIUM 9.3 mg/dL (8.5-10.1); CREATININE 0.7 mg/dL (0.7-1.3); GFR 112.8; MAGNESIUM 1.6 mg/dL (1.8-2.4); POTASSIUM 4.1 mmol/L (3.5-5.1); TOTAL BILIRUBIN 0.2 mg/dL (0.2-1.0); TOTAL PROTEIN 7.5 g/dL (6.4-8.2)
[2017-08-06] MEDS: amLODIPine BESYLATE 10 MG TABLET PO SCH (08:17)
[2017-08-06] MEDS: MULTIVITAMIN with MINERAL TABLET. PO SCH (08:17)
[2017-08-06] MEDS: LACTOBACILLUS RHAMNOSUS GG 1 CAPSULE. PO SCH ×2 (08:18→20:05)
[2017-08-06] MEDS: LISINOPRIL 20 MG TABLET PO SCH (08:18)
[2017-08-06] MEDS: FERROUS SULFATE 325 MG TABLET. PO SCH (08:18)
[2017-08-06] MEDS: DULoxetine HCL 60 MG CAPSULE.DR PO SCH ×2 (08:18→19:53)
[2017-08-06] MEDS: MAGNESIUM OXIDE 400 MG TABLET PO SCH ×3 (08:18→19:52)
[2017-08-06] MEDS: DOCUSATE SODIUM 100 MG CAPSULE PO SCH (08:19)
[2017-08-06] MEDS: metFORMIN 500 MG TABLET PO SCH ×3 (08:19→16:54)
[2017-08-06] MEDS: POTASSIUM CHLORIDE 10 MEQ TABLET.ER. PO SCH ×2 (08:19→20:06)
[2017-08-06] MEDS: ALLOPURINOL 300 MG TABLET. PO SCH (08:19)
[2017-08-06] MEDS: DOXYCYCLINE HYCLATE 100 MG TABLET PO SCH ×2 (08:19→20:05)
[2017-08-06] MEDS: diazePAM 5 MG TABLET PO SCH ×2 (08:20→19:52)
[2017-08-06] MEDS: METHADONE 5 MG TABLET. PO SCH ×3 (08:20→19:53)
[2017-08-06] MEDS: CELECOXIB 200 MG CAPSULE PO SCH (08:20)
[2017-08-06] MEDS: QUEtiapine 50 MG TABLET. PO SCH ×3 (08:20→19:53)
[2017-08-06] MEDS: FENOFIBRATE NANOCRYSTALLIZED 48 MG TABLET PO SCH (08:21)
[2017-08-06] MEDS: INSULIN ASPART 300 UNITS/3 ML INSULN.PEN SQ SCH ×4 (08:26→21:00)
[2017-08-06] MEDS: ARIPiprazole 15 MG TABLET PO SCH (08:26)
[2017-08-06 11:16] VITALS: BP 156/70
[2017-08-06] MEDS: NICOTINE 14MG PATCH. TD PRN (14:13)
[2017-08-06 16:01] VITALS: BP 146/83
[2017-08-06 19:30] VITALS: BP 118/64
[2017-08-06] MEDS: ATORVASTATIN CALCIUM 20 MG TABLET PO SCH (19:53)
[2017-08-06 23:51] VITALS: BP 138/72
--- NOTE | 2017-08-07 01:25 | PN ---
DATE: 08/06/2017 SUBJECTIVE: The patient is resting, slightly propped up in bed, sleeping comfortably, in no apparent distress. On questioning him, he denied any complaint. The nursing staff not voiced any concern except his blood sugar slightly elevated because of steroids. He did work with physical therapy and they said that he did very well. However, he continued to complain of weakness and slight dizziness. PHYSICAL EXAMINATION: GENERAL: When I examined him, he looked pale, but no jaundice, cyanosis, or thyromegaly. No jugular venous distention. No limb edema. VITAL SIGNS: His heart rate was 55, blood pressure 156/78, temperature was 97.6, respiratory rate was 20, and oxygen saturation was 94% on 2 liters of oxygen. HEAD, EYES, EARS, NOSE AND THROAT: Showed normocephalic, atraumatic. NECK: Supple. HEART: Showed normal first and second heart sounds. No gallop, rub or murmur. CHEST: Clear to auscultation. No crepitation or rhonchi. ABDOMEN: Distended, soft, nontender. No guarding or rigidity. No organomegaly. Hernial orifice intact. Bowel sounds normal. NEUROLOGIC: He was awake, alert, responding appropriately. Cranial nerves intact. He moves extremities without difficulty, ambulates with a walker with standby assist without difficulty. His intake over the last 24 hours was 2000, output was 1200. LABORATORY DATA: Showed a serum sodium of 138, potassium 4.1, chloride 100, bicarbonate 30, anion gap of 8, BUN 20, creatinine 0.7, estimated GFR was 112 mL per minute. His glucose was 203, calcium was 9.3, and magnesium 1.6. Total bilirubin, AST, ALT, alkaline phosphatase were normal. Total protein 7.5, albumin 3.2. His white cell count was 5700, hemoglobin 13, hematocrit 40, MCV 90, and platelet count of 181,000. ASSESSMENT: 1. Acute tracheobronchitis. 2. Chronic obstructive pulmonary disease. 3. Hypertension. 4. Hyperlipidemia. 5. Type 2 diabetes mellitus. 6. Obstructive sleep apnea. 7. Senile macular degeneration. PLAN: My plan is to discontinue the steroids today and switch him tomorrow to oral steroids in a tapering fashion. Meanwhile, continue with all his other medications, hoping to discharge him back home tomorrow with home health. JUAN MANUEL RAMOS MD DR: KAMINI/bell JOB#: [id number] / [id number]
[2017-08-07] MEDS: IPRATRPIUM/ALBUTEROL 0.5/2.5MG 3 ML NEBU. NEB SCH ×3 (05:50→17:00)
[2017-08-07 05:52] VITALS: BP 121/67
[2017-08-07] MEDS: INSULIN ASPART 300 UNITS/3 ML INSULN.PEN SQ SCH ×2 (07:30→12:01)
[2017-08-07 08:16] LABS: CALCIUM 9.4 mg/dL (8.5-10.1); CREATININE 0.6 mg/dL (0.7-1.3); GFR 134.8; POTASSIUM 3.6 mmol/L (3.5-5.1)
[2017-08-07] MEDS: LISINOPRIL 20 MG TABLET PO SCH (08:27)
[2017-08-07] MEDS: QUEtiapine 50 MG TABLET. PO SCH ×2 (08:27→15:38)
[2017-08-07] MEDS: METHADONE 5 MG TABLET. PO SCH ×2 (08:27→15:38)
[2017-08-07] MEDS: diazePAM 5 MG TABLET PO SCH (08:28)
[2017-08-07] MEDS: amLODIPine BESYLATE 10 MG TABLET PO SCH (08:28)
[2017-08-07] MEDS: DOCUSATE SODIUM 100 MG CAPSULE PO SCH (08:28)
[2017-08-07] MEDS: MULTIVITAMIN with MINERAL TABLET. PO SCH (08:29)
[2017-08-07] MEDS: POTASSIUM CHLORIDE 10 MEQ TABLET.ER. PO SCH (08:29)
[2017-08-07] MEDS: DULoxetine HCL 60 MG CAPSULE.DR PO SCH (08:30)
[2017-08-07] MEDS: DOXYCYCLINE HYCLATE 100 MG TABLET PO SCH (08:30)
[2017-08-07] MEDS: ALLOPURINOL 300 MG TABLET. PO SCH (08:30)
[2017-08-07] MEDS: LACTOBACILLUS RHAMNOSUS GG 1 CAPSULE. PO SCH (08:30)
[2017-08-07] MEDS: FERROUS SULFATE 325 MG TABLET. PO SCH (08:30)
[2017-08-07] MEDS: MAGNESIUM OXIDE 400 MG TABLET PO SCH ×2 (08:30→15:38)
[2017-08-07] MEDS: SUCRALFATE 1 GM TABLET. PO SCH ×2 (08:30→11:58)
[2017-08-07] MEDS: CELECOXIB 200 MG CAPSULE PO SCH (08:30)
[2017-08-07] MEDS: metFORMIN 500 MG TABLET PO SCH ×2 (08:31→12:08)
[2017-08-07 11:45] VITALS: BP 139/76
[2017-08-07] MEDS: ARIPiprazole 15 MG TABLET PO SCH (11:58)
[2017-08-07] MEDS: FENOFIBRATE NANOCRYSTALLIZED 48 MG TABLET PO SCH (11:58)
[2017-08-07 15:49] VITALS: BP 141/85
--- NOTE | 2017-08-08 09:19 | DS ---
DATE OF DISCHARGE: 08/07/2017 HOSPITAL COURSE: The patient is sitting on the edge of the bed comfortably, in no apparent distress. He feels generally much better. Cough, shortness of breath, and chest tightness are much improved. PHYSICAL EXAMINATION: GENERAL: When I examined today, he looked well and was clearly in no apparent respiratory distress, pale, but no jaundice, cyanosis, or thyromegaly. No jugular venous distension. No limb edema. VITAL SIGNS: His heart rate was 73, blood pressure was 141/85, temperature was 97.8, respiratory rate 20, and oxygen saturation was 93%. HEAD, EYES, EARS, NOSE AND THROAT: Showed he is normocephalic, atraumatic. NECK: Supple. HEART: Showed normal first and second sounds. No gallop, rub or murmur. CHEST: Clear to auscultation. No crepitation or rhonchi. ABDOMEN: Distended, soft, and nontender. No guarding or rigidity. No organomegaly. Hernial orifice intact. Bowel sounds normal. NEUROLOGIC: He was somewhat hard of hearing and has poor vision, but otherwise cranial nerves intact. EXTREMITIES: He moves extremities without difficulty, ambulates without assistance or assistive devices. LABORATORY DATA: As of this morning showed a serum sodium of 139, potassium 3.6, chloride 101, bicarbonate 31, anion gap of 7, BUN 26, creatinine 0.6. His white cell count was 5700, hemoglobin 13, hematocrit 40, MCV 90 and platelet count 181,000. DISCHARGE MEDICATIONS: He was discharged home to continue on allopurinol 300 mg once a day, amlodipine besylate/benazepril 10/20 mg once a day, Abilify 30 mg once a day, Biotin 2500 mcg capsule, he takes 2 capsules once a day, Celebrex 200 mg daily, diazepam 10 mg twice a day, docusate sodium 100 mg twice a day as needed, doxycycline 100 mg twice a day, duloxetine for Cymbalta 60 mg twice a day, fenofibrate 54 mg daily, ferrous sulfate 325 mg daily, metformin 500 mg 3 times a day, methadone 10 mg, he takes one tablet 3 times a day, multivitamin 1 tablet once a day, omeprazole 40 mg daily, potassium chloride 20 mEq daily, ____, prednisone 20 mg once a day, quetiapine fumarate (Seroquel) 50 mg 3 times a day, Crestor 20 mg once a day, sucralfate 1 gram 3 times a day with meals, tizanidine 4 mg daily. FINAL DISCHARGE DIAGNOSES: 1. Acute tracheobronchitis. 2. Chronic obstructive pulmonary disease exacerbation. 3. Hypertension. 4. Hyperlipidemia. 5. Type 2 diabetes mellitus. 6. Obstructive sleep apnea. 7. Senile macular degeneration. 8. Chronic back pain. JUAN MANUEL RAMOS MD DR: KAMINI/bell JOB#: [id number] / [id number]
== END 2017-08-07 18:00 | disposition home or self-care (01) | DRG 871 ==
LOC: ER 11:50 → 1 SOUTH 13:45
PROVIDERS: ADMIT Family Medicine; ATTEND Family Medicine
DX: A41.9 Sepsis, unspecified organism (principal); G92 Toxic encephalopathy; J44.1 Chronic obstructive pulmonary disease with (acute) exacerbation; J44.0 Chronic obstructive pulmonary disease with (acute) lower respiratory infection; J20.9 Acute bronchitis, unspecified; E11.65 Type 2 diabetes mellitus with hyperglycemia; E78.5 Hyperlipidemia, unspecified; F17.210 Nicotine dependence, cigarettes, uncomplicated; F41.9 Anxiety disorder, unspecified; G47.33 Obstructive sleep apnea (adult) (pediatric); G89.29 Other chronic pain; M54.9 Dorsalgia, unspecified; H35.30 Unspecified macular degeneration; I10 Essential (primary) hypertension; F32.9 Major depressive disorder, single episode, unspecified; N28.9 Disorder of kidney and ureter, unspecified; R09.02 Hypoxemia; Z88.2 Allergy status to sulfonamides; Z88.8 Allergy status to other drugs, medicaments and biological substances; Z82.0 Family history of epilepsy and other diseases of the nervous system; Z82.3 Family history of stroke; Z83.3 Family history of diabetes mellitus; Z85.828 Personal history of other malignant neoplasm of skin; Z98.41 Cataract extraction status, right eye; Z98.42 Cataract extraction status, left eye
CPT/HCPCS: 36415; 71045; 80048; 80053; 81001; 82553; 82803; 82947; 83605; 83735; 83880; 84484; 85025; 85027; 85610; 87040; 93005; 94640; 96365; 99406; J1815; J2543; J2920; J3475; J7620; 97110; 99285-25; J7030

== ENCOUNTER 2017-08-20 12:25 | Inpatient (IN) | payer MEDICARE, BC ==
[~2017-08-20] VITALS: Ht 167.6 cm; Wt 79.2 kg
[~2017-08-20 12:25] MED LIST changes: +ARIP30TA4 PO; +BIOT25006 PO; +DOXY100C2 PO; +FERR325T14 PO; +GLUC1CAP48 PO; +MULT-246 PO; +MULT1TAB97 PO; +POTA10CA PO; +QUET50TA5 PO; +SUCR1TAB PO
[2017-08-20 12:52] LABS: BGAS PH 7.36 (7.35-7.46)
--- NOTE | 2017-08-20 12:59 | EKG ---
[address] [address] Test Date: 2017-08-20 Test Time: 12:56:00 Pat Name: JANINE CALIX Department: Room: Gender: M [employer]: : 1950 Requested By: DAHLIA MORENO Order Number: [id number] Reading MD: Measurements Intervals [place] Rate: 58 P: 26 [place]: 140 QRS: -18 QRSD: 90 T: 72 QT: 420 QTc: 416 Interpretive Statements SINUS RHYTHM LEFTWARD AXIS QRS(T) CONTOUR ABNORMALITY CONSIDER ANTEROSEPTAL MYOCARDIAL DAMAGE POSSIBLY ABNORMAL ECG RI6.01 Compared to ECG 08/04/2017 13:07:08 ST (T wave) deviation no longer present
[2017-08-20] MEDS ORDERED: methylPREDNISolone SOD SUCC PF 125 MG/2 ML VIAL. IV ONE (13:00)
[2017-08-20] MEDS ORDERED: IPRATRPIUM/ALBUTEROL 0.5/2.5MG 3 ML NEBU. NEB ONE (13:00)
[2017-08-20 13:01] LABS: BASO % 0 % (0-3); EOS # 0.1 x10^3/uL (0.0-0.7); EOS % 2 % (0-3); HEMATOCRIT 37.6 % (39.0-53.0); HEMOGLOBIN 12.5 g/dL (13.0-17.5); LYMPH # 1.3 x10^3/uL (1.0-4.8); LYMPH % 21 % (24-48); MEAN CORPUSCULAR HEMOGLOBIN 30 pg (25-35); MEAN CORPUSCULAR HGB CONC 33 g/dL (31-37); MEAN CORPUSCULAR VOLUME 90 fL (79-100); MONO # 0.4 x10^3/uL (0.0-1.1); MONO % 7 % (0-9); NEUT # 4.5 x10^3uL (1.8-7.7); NEUT % 70 % (31-73); PLATELET COUNT 174 x10^3/uL (140-400); RED BLOOD COUNT 4.19 x10^6/uL (4.30-5.70); RED CELL DISTRIBUTION WIDTH 14.2 % (11.5-14.5); WHITE BLOOD COUNT 6.3 x10^3/uL (4.0-11.0)
[2017-08-20 13:24] LABS: ALBUMIN 3.1 g/dL (3.4-5.0); ALBUMIN/GLOBULIN RATIO 0.7 (1.0-1.7); CREATININE 0.7 mg/dL (0.7-1.3); GFR 112.8; POTASSIUM 4.6 mmol/L (3.5-5.1); TOTAL BILIRUBIN 0.4 mg/dL (0.2-1.0); TOTAL PROTEIN 7.3 g/dL (6.4-8.2)
--- NOTE | 2017-08-20 13:30 | RAD ---
Single view chest 08/20/2017 Clinical indication: Cough. Comparison: Chest 08/04/2017 Findings: Cardiac and mediastinal silhouettes are unremarkable. No pleural effusion, pneumothorax or focal consolidation. Impression: No acute cardiopulmonary abnormality.
--- NOTE | 2017-08-20 14:02 | PHYS DOC ---
Past History Past Medical History: COPD, Diabetes, Fibromyalgia, High Cholesterol, Hypertension, TIA, Other Past Surgical History: Other Smoking: Greater than 1 pack/day Alcohol Use: None Drug Use: None Adult General Chief Complaint Chief Complaint: SHORTNESS OF BREATH HPI HPI 67-year-old male patient 30 of COPD on physician only at night had recent hospitalization with diagnosis of COPD exacerbation and discharged home on August 07. Patient states he had increasing of shortness of breath and dry cough since he was discharged from hospital about 2 weeks ago. Patient complaining of generalized weakness and not feeling good. Patient denies fever, vomiting and diarrhea, urinary symptoms, extremity edema or pain. Patient had O2 sats of 70s reported by home health nurse that improved to 85% with 2 L of oxygen and called his primary care physician who recommended to come to emergency room. Review of Systems Review of Systems Constitutional: Denies fever or chills, reports weakness [] Eyes: Denies change in visual acuity, redness, or eye pain [] HENT: Denies nasal congestion or sore throat [] Respiratory: Reports cough and shortness of breath Cardiovascular: No additional information not addressed in HPI [] GI: Denies abdominal pain, nausea, vomiting, bloody stools or diarrhea [] : Denies dysuria or hematuria [] Musculoskeletal: Denies back pain or joint pain [] Integument: Denies rash or skin lesions [] Neurologic: Denies headache, focal weakness or sensory changes [] Endocrine: Denies polyuria or polydipsia [] All other systems were reviewed and found to be within normal limits, except as documented in this note. Current Medications Current Medications Current Medications Medications (Trade) Dose Ordered Sig/Claudia Start Time Stop Time Status Last Admin Dose Admin Albuterol/ Ipratropium (Duoneb) 3 ml 1X ONCE 08/20/17 13:00 08/20/17 13:01 DC 08/20/17 13:04 3 ML Methylprednisolone Sodium Succinate (SOLU-Medrol 125MG VIAL) 125 mg 1X ONCE 08/20/17 13:00 08/20/17 13:01 DC 08/20/17 13:02 125 MG Allergies Allergies Allergies Coded Allergies Type Severity Reaction Last Updated Verified Sulfa (Sulfonamide Antibiotics) Allergy Intermediate 08/20/17 No liraglutide Allergy Intermediate 08/20/17 No quinine Allergy Intermediate 08/20/17 Yes Physical Exam Physical Exam Constitutional: Well developed, ill looking,mild distress, non-toxic appearance. [] HENT: Normocephalic, atraumatic, bilateral external ears normal, oropharynx moist, no oral exudates, nose normal. [] Eyes: PERRLA, EOMI, conjunctiva normal, no discharge. [] Neck: Normal range of motion, no tenderness, supple, no stridor. [] Cardiovascular:Heart rate regular rhythm, no murmur [] Lungs & Thorax: Decrease of breath sounds without respiratory distress Abdomen: Bowel sounds normal, soft, no tenderness, no masses, no pulsatile masses. [] Skin: Warm, dry, no erythema, no rash. [] Back: No tenderness, no CVA tenderness. [] Extremities: No tenderness, no cyanosis, no clubbing, ROM intact, no edema. [] Neurologic: Alert and oriented X 3, normal motor function, normal sensory function, no focal deficits noted. [] Psychologic: Affect normal, judgement normal, mood normal. [] Current Patient Data Vital Signs Vital Signs Date Time Temp Pulse Resp B/P (MAP) Pulse Ox O2 Delivery O2 Flow Rate FiO2 08/20/17 13:05 93 Nasal Cannula 2.0 08/20/17 12:25 97.6 66 15 Lab Results Laboratory Tests Test 08/20/17 12:36 08/20/17 12:48 Blood pH 7.36 (7.35-7.46) Blood Gas PCO2 47 mmHg (35-46) H Blood Gas PO2 53 mmHg (80-100) L Blood Gas HCO3 26 mmol/L (21-28) Arterial Bld O2 Saturation (Calc) 86 % (92-99) L FiO2 21 % White Blood Count 6.3 x10^3/uL (4.0-11.0) Red Blood Count 4.19 x10^6/uL (4.30-5.70) L Hemoglobin 12.5 g/dL (13.0-17.5) L Hematocrit 37.6 % (39.0-53.0) L Mean Corpuscular Volume 90 fL (79-100) Mean Corpuscular Hemoglobin 30 pg (25-35) Mean Corpuscular Hemoglobin Concent 33 g/dL (31-37) Red Cell Distribution Width 14.2 % (11.5-14.5) Platelet Count 174 x10^3/uL (140-400) Neutrophils (%) (Auto) 70 % (31-73) Lymphocytes (%) (Auto) 21 % (24-48) L Monocytes (%) (Auto) 7 % (0-9) Eosinophils (%) (Auto) 2 % (0-3) Basophils (%) (Auto) 0 % (0-3) Neutrophils # (Auto) 4.5 x10^3uL (1.8-7.7) Lymphocytes # (Auto) 1.3 x10^3/uL (1.0-4.8) Monocytes # (Auto) 0.4 x10^3/uL (0.0-1.1) Eosinophils # (Auto) 0.1 x10^3/uL (0.0-0.7) Basophils # (Auto) 0.0 x10^3/uL (0.0-0.2) Sodium Level 139 mmol/L (136-145) Potassium Level 4.6 mmol/L (3.5-5.1) Chloride Level 103 mmol/L (98-107) Carbon Dioxide Level 30 mmol/L (21-32) Anion Gap 6 (6-14) Blood Urea Nitrogen 13 mg/dL (8-26) Creatinine 0.7 mg/dL (0.7-1.3) Estimated GFR (Cockcroft-Gault) 112.8 BUN/Creatinine Ratio 19 (6-20) Glucose Level 189 mg/dL (70-99) H Lactic Acid Level 1.2 mmol/L (0.4-2.0) Calcium Level 9.0 mg/dL (8.5-10.1) Total Bilirubin 0.4 mg/dL (0.2-1.0) Aspartate Amino Transferase (AST) 24 U/L (15-37) Alanine Aminotransferase (ALT) 25 U/L (16-63) Alkaline Phosphatase 78 U/L (46-116) Creatine Kinase 160 U/L (39-308) Troponin I Quantitative < 0.017 ng/mL (0-0.055) BW-Qbx-X-Type Natriuretic Peptide 42 pg/mL (0-124) Total Protein 7.3 g/dL (6.4-8.2) Albumin 3.1 g/dL (3.4-5.0) L Albumin/Globulin Ratio 0.7 (1.0-1.7) L EKG EKG EKG interpreted by me. EKG at 1256 showed sinus bradycardia at rate of 58, left axis deviation, poor R-wave progress in anteroseptal leads, no acute ST and T wave abnormality] Radiology/Procedures Radiology/Procedures [[address] [address] IMAGING REPORT Signed PATIENT: JANINE CALIX ACCOUNT: [id number] : 1950 LOCATION: ER AGE: 67 SEX: M EXAM STATUS: REG ER ORD. PHYSICIAN: DAHLIA MORENO MD REASON: shortness of breath and cough PROCEDURE: PORTABLE CHEST 1V Single view chest 08/20/2017 Clinical indication: Cough. Comparison: Chest 08/04/2017 Findings: Cardiac and mediastinal silhouettes are unremarkable. No pleural effusion, pneumothorax or focal consolidation. Impression: No acute cardiopulmonary abnormality. DICTATED AND SIGNED BY: YULY AKERS MD DATE: 08/20/17 1326 CC: MONET DICKINSON MD; DAHLIA MORENO MD ~ ] Course & Med Decision Making Course & Med Decision Making Pertinent Labs and Imaging studies reviewed. (See chart for details) Evaluation of patient in ER showed 67-year-old male patient with history of COPD brought in because of increasing shortness of breath and hypoxia. Patient had O2 sats of 89% at room air at that improved to 95% with 2 L of oxygen. Patient had ill looking without respiratory distress. ABG showed hypoxia and mild containing CO2. Patient did not have elevation of lactic acid or leukocytosis. Patient treated with DuoNeb, Solu-Medrol, Rocephin. Dr. Le informed at 1402 and agreed with plan of admission and accepted admission. Patient and his family informed about plan of care. [] Dragon Disclaimer Dragon Disclaimer This electronic medical record was generated, in whole or in part, using a voice recognition dictation system. Departure Departure: Impression: Primary Impression: Acute exacerbation of chronic obstructive pulmonary disease (COPD) Additional Impressions: Hypoxia Generalized weakness Uncontrolled diabetes mellitus Disposition: ADMITTED INPATIENT (At 1404) Admitting Physician: Tia Le Condition: IMPROVED Referrals: MONET DICKINSON MD (PCP) Problem Qualifiers DAHLIA MORENO MD Aug 20, 2017 14:02
[2017-08-20] MEDS ORDERED: cefTRIAXone IV Push 1 GM VIAL. IVP ONE (14:30)
[2017-08-20 15:00] VITALS: BP 122/74
--- NOTE | 2017-08-20 15:43 | NUR ---
The patient, JANINE CALIX, 67 y/o, M admitted by JUAN MANUEL RAMOS MD, was given written information regarding hospital policies, unit procedures and contact persons. Patient admitted to room 119 from the ED and arrived at approx. 1430 via EMS. Valuables were checked and left in room with patient. Vital signs assessed and patient oriented to the room.
[2017-08-20] MEDS ORDERED: tiZANidine 4 MG TABLET. PO PRN (16:45)
[2017-08-20 16:56] LABS: BACTERIA,URINE 0 /HPF (0-FEW); BILIRUBIN,URINE NEG (NEG); CLARITY,URINE CLEAR; COLOR,URINE YELLOW; GLUCOSE,URINE 250 mg/dL (NEG); NITRITE,URINE NEG (NEG); RBC,URINE 0 /HPF (0-2); SQUAMOUS EPITHELIAL CELL,UR OCC /LPF; UROBILINOGEN,URINE 0.2 mg/dL (0.2 mg/dL); WBC,URINE OCC /HPF (0-4)
[2017-08-20 16:57] LABS: HYALINE CASTS, URINE OCC /HPF
[2017-08-20] MEDS: metFORMIN 500 MG TABLET PO SCH (17:37)
[2017-08-20 19:50] VITALS: BP 123/80
[2017-08-20] MEDS: IPRATRPIUM/ALBUTEROL 0.5/2.5MG 3 ML NEBU. NEB SCH (20:59)
[2017-08-20] MEDS ORDERED: DEXTROSE 50% 25 GM / 50ML DISP.SYRIN. IV PRN (21:00)
[2017-08-20] MEDS: DULoxetine HCL 60 MG CAPSULE.DR PO SCH (21:21)
[2017-08-20] MEDS: ATORVASTATIN CALCIUM 20 MG TABLET PO SCH (21:21)
[2017-08-20] MEDS: QUEtiapine 50 MG TABLET. PO SCH (21:21)
[2017-08-20] MEDS: POTASSIUM CHLORIDE 10 MEQ TABLET.ER. PO SCH (21:22)
[2017-08-20] MEDS: METHADONE 5 MG TABLET. PO SCH (21:22)
[2017-08-20] MEDS: diazePAM 5 MG TABLET PO SCH (21:25)
[2017-08-20] MEDS: methylPREDNISolone SOD SUCC PF 40 MG/ML VIAL. IV SCH (21:25)
--- NOTE | 2017-08-20 21:28 | HP ---
ADMIT DATE: 08/20/2017 HISTORY OF PRESENT ILLNESS: The patient is a 67-year-old male patient who was discharged from this hospital on 08/08, who apparently was brought to the Emergency Room by his . He apparently was found to be extremely hypoxic at home with oxygen saturation of only 70%. Home health nurse started him on 2 liters of oxygen. It improved to 85% and basically the patient called his primary care physician who recommended that the patient should come to the Emergency Room. The patient did complain of cough with whitish to yellowish sputum, shortness of breath, but denied any chills, rigors or fever. He was investigated in the Emergency Room and was admitted with COPD exacerbation. PAST MEDICAL HISTORY: Significant for type 2 diabetes mellitus, hypertension, hyperlipidemia, COPD normally on 2 liters of oxygen by nasal cannula. He is also known to have obstructive sleep apnea and was apparently at one point in time on CPAP. PAST SURGICAL HISTORY: Significant for back surgery, nasal surgery, bilateral cataract extraction, resection of skin cancer from the left side of his nasal bridge. ALLERGIES: He is allergic to SULFA DRUGS, LIRAGLUTIDE and QUININE, as well as BENADRYL. FAMILY HISTORY: Significant as he has 1 older sister who has fibromyalgia and osteoarthritis. Father at age of 79 because of diabetes, CVA, and Alzheimer's. Mother with diabetes, CVA, and Alzheimer disease. SOCIAL HISTORY: He is . He has 1 son from apparently previous marriage. He smokes about half a pack a day. He does not drink alcohol. 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 MEDICATIONS: He is currently on allopurinol 300 mg once a day, amlodipine besylate/benazepril 1 capsule once a day, aripiprazole 30 mg with breakfast, biotin 5000 mcg daily, Celebrex 200 mg once a day, diazepam 10 mg twice a day, Colace 100 mg daily, duloxetine 60 mg twice a day, fenofibrate 54 mg once a day, ferrous sulfate 325 mg once a day, glucosamine and chondroitin sulfate 2 capsules once a day, metformin 500 mg 3 times a day with meals, methadone 10 mg 3 times a day, multivitamin 1 tablet once a day, omeprazole 40 mg daily, potassium chloride 30 mEq once a day, quetiapine fumarate for Seroquel 50 mg 3 times a day, Crestor 20 mg at bedtime. He is on sucralfate 1 g before meals and tizanidine 4 mg twice a day. REVIEW OF SYSTEMS: The patient denied any blurring of vision. He did have bilateral cataract extraction, but no glaucoma or macular degeneration. Denied any earache, tinnitus or sensorineural deafness. Denied any nosebleeds, stuffy nose or postnasal drip. Denied any sore throat, sore tongue, toothache, hoarseness of voice, difficulty swallowing. Denied any nausea, vomiting, diarrhea or constipation. Denied any hematemesis, melena or hematochezia. Denied any dysuria, frequency or hematuria. Denied any chest pain. Did complain of shortness of breath, cough with a whitish yellow sputum. Denied any orthopnea or paroxysmal nocturnal dyspnea. Denied any chills, rigors or fever. PHYSICAL EXAMINATION: GENERAL: On arrival to the Emergency Room, he was somewhat pale, but no jaundice, cyanosis, or thyromegaly. No jugular venous distention. No limb edema. VITAL SIGNS: His heart rate was 66, blood pressure was 102/52, temperature was 97.6, respiratory rate was 15 and oxygen saturation was 88% on room air that has improved to 99% on 3-1/2 liters of oxygen. HEAD, EYES, EARS, NOSE AND THROAT: Normocephalic, atraumatic. NECK: Supple. HEART: Showed normal first and second heart sounds with no gallop, rub or murmur. CHEST: Clear to auscultation. Chest showed central trachea, equally reduced expansion, reduced air entry. I really could not appreciate any crepitation or rhonchi. ABDOMEN: Distended, soft, nontender. No guarding or rigidity. No organomegaly. Hernial orifices intact. Bowel sounds normal. NEUROLOGIC: He is awake, alert, responding appropriately. Cranial nerves intact. EXTREMITIES: He moves extremities without difficulty, ambulates without assistance or assistive devices. He does use a cane when he is outside, according to him. LABORATORY DATA: In the Emergency Room showed a white cell count of 6300; hemoglobin 12.5; hematocrit of 37.6; MCV 90 and platelet count 274,000. Serum sodium was 139, potassium 4.6, chloride 103, bicarbonate 30, anion gap of 6, BUN 13, creatinine 0.7, estimated GFR was 112 mL per minute, his glucose 189. Lactic acid is only 1.2, calcium was 9. Total bilirubin, AST, ALT, alkaline phosphatase were normal. His total protein was 7.3, albumin 3.1. His blood gases showed a pH of 7.36, pCO2 of 47, pO2 of 53, bicarbonate 26, oxygen saturation was 86% on room air. His chest x-ray showed cardiac and mediastinal silhouette, unremarkable. No pleural effusion, pneumothorax or focal consolidation. IMPRESSION AND PLAN: In summary, this is a 67-year-old male patient who was admitted with acute hypoxic mildly hypercapnic respiratory failure due to chronic obstructive pulmonary disease exacerbation. We will continue with all his medication as Solu-Medrol as well as IV antibiotic in the form of Rocephin and follow him closely. His blood sugar will be monitored also and might have to start him on insulin sliding scale if deemed necessary. JUAN MANUEL RAMOS MD DR: KAMINI/bell JOB#: [id number] / [id number]
[2017-08-20] MEDS: INSULIN ASPART 300 UNITS/3 ML INSULN.PEN SQ SCH (21:31)
[2017-08-20 23:15] VITALS: BP 108/68
[2017-08-21] MEDS: methylPREDNISolone SOD SUCC PF 40 MG/ML VIAL. IV SCH ×3 (05:45→21:50)
[2017-08-21] MEDS: IPRATRPIUM/ALBUTEROL 0.5/2.5MG 3 ML NEBU. NEB SCH ×4 (05:59→21:50)
[2017-08-21 06:16] VITALS: BP 117/74
[2017-08-21 06:55] LABS: BASO % 0 % (0-3); EOS % 0 % (0-3); HEMATOCRIT 35.7 % (39.0-53.0); HEMOGLOBIN 12.2 g/dL (13.0-17.5); LYMPH # 0.5 x10^3/uL (1.0-4.8); LYMPH % 10 % (24-48); MEAN CORPUSCULAR HEMOGLOBIN 30 pg (25-35); MEAN CORPUSCULAR HGB CONC 34 g/dL (31-37); MEAN CORPUSCULAR VOLUME 88 fL (79-100); MONO # 0.1 x10^3/uL (0.0-1.1); MONO % 2 % (0-9); NEUT # 4.7 x10^3uL (1.8-7.7); NEUT % 88 % (31-73); PLATELET COUNT 164 x10^3/uL (140-400); RED BLOOD COUNT 4.04 x10^6/uL (4.30-5.70); RED CELL DISTRIBUTION WIDTH 13.7 % (11.5-14.5); WHITE BLOOD COUNT 5.4 x10^3/uL (4.0-11.0)
[2017-08-21 07:24] LABS: ALBUMIN 2.8 g/dL (3.4-5.0); ALBUMIN/GLOBULIN RATIO 0.7 (1.0-1.7); CALCIUM 8.8 mg/dL (8.5-10.1); CREATININE 0.7 mg/dL (0.7-1.3); GFR 112.8; MAGNESIUM 1.4 mg/dL (1.8-2.4); POTASSIUM 4.1 mmol/L (3.5-5.1); TOTAL BILIRUBIN 0.2 mg/dL (0.2-1.0); TOTAL PROTEIN 6.7 g/dL (6.4-8.2)
[2017-08-21] MEDS: SUCRALFATE 1 GM TABLET. PO SCH ×3 (08:28→17:05)
[2017-08-21] MEDS: DULoxetine HCL 60 MG CAPSULE.DR PO SCH ×2 (08:28→21:51)
[2017-08-21] MEDS: amLODIPine BESYLATE 10 MG TABLET PO SCH (08:29)
[2017-08-21] MEDS: PANTOPRAZOLE 40 MG TABLET. PO SCH (08:30)
[2017-08-21] MEDS: ALLOPURINOL 300 MG TABLET. PO SCH (08:30)
[2017-08-21] MEDS: DOCUSATE SODIUM 100 MG CAPSULE PO SCH ×2 (08:31→21:51)
[2017-08-21] MEDS: POTASSIUM CHLORIDE 10 MEQ TABLET.ER. PO SCH ×2 (08:31→21:53)
[2017-08-21] MEDS: MULTIVITAMIN with MINERAL TABLET. PO SCH (08:31)
[2017-08-21] MEDS: METHADONE 5 MG TABLET. PO SCH ×3 (08:32→21:52)
[2017-08-21] MEDS: diazePAM 5 MG TABLET PO SCH ×2 (08:33→21:55)
[2017-08-21] MEDS: CELECOXIB 200 MG CAPSULE PO SCH (08:33)
[2017-08-21] MEDS: NICOTINE 14MG PATCH. TD SCH (08:33)
[2017-08-21] MEDS: LISINOPRIL 20 MG TABLET PO SCH (08:33)
[2017-08-21] MEDS: QUEtiapine 50 MG TABLET. PO SCH ×3 (08:33→21:52)
[2017-08-21] MEDS: FERROUS SULFATE 325 MG TABLET. PO SCH (08:34)
[2017-08-21] MEDS: metFORMIN 500 MG TABLET PO SCH ×3 (08:34→17:05)
[2017-08-21] MEDS: GLUCOSAMINE/CHOND 500/400MG CAPSULE PO SCH (08:34)
[2017-08-21] MEDS: FENOFIBRATE NANOCRYSTALLIZED 48 MG TABLET PO SCH (08:35)
[2017-08-21] MEDS: ARIPiprazole 15 MG TABLET PO SCH (08:35)
[2017-08-21] MEDS: INSULIN ASPART 300 UNITS/3 ML INSULN.PEN SQ SCH ×6 (08:49→21:47)
[2017-08-21] MEDS ORDERED: NON FORMULARY ITEM (Biotin 5,000 MCG) PO SCH (09:00)
[2017-08-21] MEDS ORDERED: DOCUSATE SODIUM 100 MG CAPSULE PO SCH (09:00)
[2017-08-21] MEDS ORDERED: MAGNESIUM SULFATE 2GM 50 ML IV ONE (09:30)
[2017-08-21 10:00] VITALS: BP 115/71
[2017-08-21] MEDS: LACTOBACILLUS RHAMNOSUS GG 1 CAPSULE. PO SCH ×2 (11:32→21:52)
[2017-08-21] MEDS: cefTRIAXone IV Push 1 GM VIAL. IVP SCH (13:56)
[2017-08-21 15:01] VITALS: BP 103/66
[2017-08-21 19:30] VITALS: BP 106/65
[2017-08-21] MEDS: ATORVASTATIN CALCIUM 20 MG TABLET PO SCH (21:51)
[2017-08-22 00:15] VITALS: BP 144/56
--- NOTE | 2017-08-22 04:57 | PN ---
DATE: 08/21/2017 PROBLEMS: 1. Acute hypoxic hypercapnic respiratory failure. 2. Chronic obstructive pulmonary disease exacerbation. 3. Chronic tobacco use disorder. 4. Hard of hearing. 5. Type 2 diabetes. 6. Hyperglycemia. 7. Moderate protein calorie malnutrition. 8. Hypomagnesemia. SUBJECTIVE: Met with the patient and his in his room. It appears that he will be needing oxygen during the day as well as at night. He currently just was using oxygen at night, but has been having some desaturations. He continues on his IV antibiotics as well as steroids and his magnesium was replaced today. OBJECTIVE: VITAL SIGNS: Blood pressure 115/71, pulse 79, respirations 22, pulse ox is 94% on 2 liters, temperature 97.8. GENERAL: Very sleepy. HEENT: Tongue was moist. NECK: Supple. LUNGS: With distant breath sounds, coarse. CARDIOVASCULAR: Regular rhythm and rate. ABDOMEN: Soft, nontender. EXTREMITIES: Without edema. LABORATORY DATA: Reviewed. PLAN: Continue current plan and will need home oxygen. HEBER ASHBY DO DR: HARSHIL/bell JOB#: [id number] / [id number]
[2017-08-22] MEDS: methylPREDNISolone SOD SUCC PF 40 MG/ML VIAL. IV SCH (05:20)
[2017-08-22 05:25] VITALS: BP 109/76
[2017-08-22] MEDS: IPRATRPIUM/ALBUTEROL 0.5/2.5MG 3 ML NEBU. NEB SCH ×4 (06:04→22:53)
[2017-08-22 06:56] LABS: BASO % 0 % (0-3); EOS % 0 % (0-3); HEMATOCRIT 36.4 % (39.0-53.0); HEMOGLOBIN 12.2 g/dL (13.0-17.5); LYMPH # 0.6 x10^3/uL (1.0-4.8); LYMPH % 7 % (24-48); MEAN CORPUSCULAR HEMOGLOBIN 30 pg (25-35); MEAN CORPUSCULAR HGB CONC 34 g/dL (31-37); MEAN CORPUSCULAR VOLUME 89 fL (79-100); MONO # 0.3 x10^3/uL (0.0-1.1); MONO % 3 % (0-9); NEUT # 7.9 x10^3uL (1.8-7.7); NEUT % 90 % (31-73); PLATELET COUNT 163 x10^3/uL (140-400); RED BLOOD COUNT 4.12 x10^6/uL (4.30-5.70); RED CELL DISTRIBUTION WIDTH 14.1 % (11.5-14.5); WHITE BLOOD COUNT 8.8 x10^3/uL (4.0-11.0)
[2017-08-22 07:06] LABS: ALBUMIN 2.9 g/dL (3.4-5.0); ALBUMIN/GLOBULIN RATIO 0.7 (1.0-1.7); CALCIUM 8.9 mg/dL (8.5-10.1); CREATININE 0.7 mg/dL (0.7-1.3); GFR 112.8; MAGNESIUM 1.6 mg/dL (1.8-2.4); POTASSIUM 4.8 mmol/L (3.5-5.1); TOTAL BILIRUBIN 0.2 mg/dL (0.2-1.0); TOTAL PROTEIN 6.8 g/dL (6.4-8.2)
[2017-08-22] MEDS: MULTIVITAMIN with MINERAL TABLET. PO SCH (08:07)
[2017-08-22] MEDS: DULoxetine HCL 60 MG CAPSULE.DR PO SCH ×2 (08:08→21:27)
[2017-08-22] MEDS: ALLOPURINOL 300 MG TABLET. PO SCH (08:08)
[2017-08-22] MEDS: METHADONE 5 MG TABLET. PO SCH ×3 (08:08→21:26)
[2017-08-22] MEDS: CELECOXIB 200 MG CAPSULE PO SCH (08:08)
[2017-08-22] MEDS: SUCRALFATE 1 GM TABLET. PO SCH ×3 (08:08→16:51)
[2017-08-22] MEDS: LACTOBACILLUS RHAMNOSUS GG 1 CAPSULE. PO SCH ×2 (08:08→21:26)
[2017-08-22] MEDS: PANTOPRAZOLE 40 MG TABLET. PO SCH (08:08)
[2017-08-22] MEDS: LISINOPRIL 20 MG TABLET PO SCH (08:09)
[2017-08-22] MEDS: metFORMIN 500 MG TABLET PO SCH ×3 (08:09→16:50)
[2017-08-22] MEDS: FERROUS SULFATE 325 MG TABLET. PO SCH (08:10)
[2017-08-22] MEDS: QUEtiapine 50 MG TABLET. PO SCH ×3 (08:10→21:26)
[2017-08-22] MEDS: diazePAM 5 MG TABLET PO SCH ×2 (08:10→21:27)
[2017-08-22] MEDS: POTASSIUM CHLORIDE 10 MEQ TABLET.ER. PO SCH ×2 (08:10→21:27)
[2017-08-22] MEDS: amLODIPine BESYLATE 10 MG TABLET PO SCH (08:10)
[2017-08-22] MEDS: GLUCOSAMINE/CHOND 500/400MG CAPSULE PO SCH (08:11)
[2017-08-22] MEDS: ARIPiprazole 15 MG TABLET PO SCH (08:11)
[2017-08-22] MEDS: FENOFIBRATE NANOCRYSTALLIZED 48 MG TABLET PO SCH (08:11)
[2017-08-22] MEDS: NICOTINE 14MG PATCH. TD SCH (08:11)
[2017-08-22] MEDS: DOCUSATE SODIUM 100 MG CAPSULE PO SCH ×2 (08:11→21:26)
[2017-08-22] MEDS: INSULIN ASPART 300 UNITS/3 ML INSULN.PEN SQ SCH ×7 (08:18→21:31)
[2017-08-22 10:56] VITALS: BP_SYST 106
[2017-08-22 14:25] VITALS: BP 123/74
[2017-08-22] MEDS: cefTRIAXone IV Push 1 GM VIAL. IVP SCH (16:52)
[2017-08-22 19:00] VITALS: BP 143/77
[2017-08-22] MEDS: ATORVASTATIN CALCIUM 20 MG TABLET PO SCH (21:27)
[2017-08-22 23:07] VITALS: BP 96/54
[2017-08-23] MEDS ORDERED: methylPREDNISolone SOD SUCC PF 40 MG/ML VIAL. IV SCH ×2 (02:00→09:00)
[2017-08-23] MEDS: IPRATRPIUM/ALBUTEROL 0.5/2.5MG 3 ML NEBU. NEB SCH ×3 (05:49→16:17)
[2017-08-23 05:51] VITALS: BP 113/62
[2017-08-23] MEDS: NICOTINE 14MG PATCH. TD SCH (08:31)
[2017-08-23] MEDS: metFORMIN 500 MG TABLET PO SCH ×3 (08:32→17:52)
[2017-08-23] MEDS: POTASSIUM CHLORIDE 10 MEQ TABLET.ER. PO SCH (08:32)
[2017-08-23] MEDS: SUCRALFATE 1 GM TABLET. PO SCH ×3 (08:32→17:52)
[2017-08-23] MEDS: diazePAM 5 MG TABLET PO SCH (08:32)
[2017-08-23] MEDS: DOCUSATE SODIUM 100 MG CAPSULE PO SCH (08:33)
[2017-08-23] MEDS: METHADONE 5 MG TABLET. PO SCH ×2 (08:33→16:03)
[2017-08-23] MEDS: MULTIVITAMIN with MINERAL TABLET. PO SCH (08:33)
[2017-08-23] MEDS: LACTOBACILLUS RHAMNOSUS GG 1 CAPSULE. PO SCH (08:33)
[2017-08-23] MEDS: DULoxetine HCL 60 MG CAPSULE.DR PO SCH (08:33)
[2017-08-23] MEDS: PANTOPRAZOLE 40 MG TABLET. PO SCH (08:34)
[2017-08-23] MEDS: CELECOXIB 200 MG CAPSULE PO SCH (08:34)
[2017-08-23] MEDS: amLODIPine BESYLATE 10 MG TABLET PO SCH (08:34)
[2017-08-23] MEDS: ALLOPURINOL 300 MG TABLET. PO SCH (08:34)
[2017-08-23] MEDS: LISINOPRIL 20 MG TABLET PO SCH (08:34)
[2017-08-23] MEDS: GLUCOSAMINE/CHOND 500/400MG CAPSULE PO SCH (08:35)
[2017-08-23] MEDS: QUEtiapine 50 MG TABLET. PO SCH ×2 (08:35→16:03)
[2017-08-23] MEDS: FENOFIBRATE NANOCRYSTALLIZED 48 MG TABLET PO SCH (08:35)
[2017-08-23] MEDS: FERROUS SULFATE 325 MG TABLET. PO SCH (08:35)
[2017-08-23] MEDS: INSULIN ASPART 300 UNITS/3 ML INSULN.PEN SQ SCH ×6 (08:47→18:25)
--- NOTE | 2017-08-23 09:02 | PN ---
DATE: 08/22/2017 SUBJECTIVE: The patient is resting slightly propped up in bed, no apparent distress. Continued to be generally weak but has been up and about, walked with the physical therapy, maintaining his oxygen saturation. His oxygen saturation is 96% on room air; however, he continued to desats at times and even at home when he is asleep, he desaturates down to 75% according to his and also on exertion at times. He apparently had a repeat sleep study done recently, which did not qualify him for CPAP and because of the weakness, it was felt that he might benefit from going to rehabilitation in a group home facility. PHYSICAL EXAMINATION: GENERAL: When I examined him today, he looked well and was clearly in no apparent respiratory distress, pale, but no jaundiced or cyanosed from thyromegaly. No jugular venous distention. No lower limb edema. VITAL SIGNS: His heart rate was 67, blood pressure was 123/74, temperature was 97.6, respiratory rate 20, and oxygen saturation was 95% on 2 liters of oxygen. HEAD, EYES, EARS, NOSE AND THROAT: Showed normocephalic, atraumatic. NECK: Supple. HEART: Showed normal first and second heart sounds with no gallop, rub, or murmur. CHEST: Clear to auscultation. No crepitation or rhonchi. ABDOMEN: Distended, soft, nontender. NEUROLOGIC: He was awake, alert, responding appropriately. All cranial nerves intact. He moves extremities without difficulty, ambulates without assistance or assistive devices. His intake was 2200, no output was recorded. LABORATORY DATA: His lab work this morning showed a white cell count of 8800, hemoglobin 12, hematocrit 36, MCV 89, and platelet count of 163,000 with normal manual differential. His chemistry showed serum sodium of 140, potassium 4.8, chloride 102, bicarbonate 28, anion gap of 10, BUN 23, creatinine 0.7. Estimated GFR was 112 mL per minute. His glucose was 309, calcium was 8.9, magnesium was 1.6. Total bilirubin, AST, ALT, alkaline phosphatase were normal. Total protein was 6.8, albumin 2.9. His urinalysis was unremarkable. His blood cultures are so far negative. ASSESSMENT: 1. Acute hypoxic hypercapnic respiratory failure. 2. Chronic obstructive pulmonary disease exacerbation. 3. Type 2 diabetes. 4. Hyperglycemia. 5. Hypomagnesemia. PLAN: To continue with IV antibiotic. Continue with Solu-Medrol, I will cut down to 40 mg twice a day and hopefully discharge him tomorrow to a group home facility for further rehab. JUAN MANUEL RAMOS MD DR: KAMINI/bell JOB#: [id number] / [id number]
[2017-08-23 10:57] VITALS: BP 135/76
[2017-08-23] MEDS: ARIPiprazole 15 MG TABLET PO SCH (12:37)
[2017-08-23] MEDS: cefTRIAXone IV Push 1 GM VIAL. IVP SCH (16:02)
[2017-08-23 16:23] VITALS: BP 150/82
[2017-08-23] MEDS ORDERED: LIDOCAINE (700MG/PATCH) PATCH. TD SCH (17:30)
[2017-08-23 19:32] VITALS: BP 144/82
[2017-08-23] MEDS ORDERED: ATORVASTATIN CA80 MG PO (20:55)
[2017-08-23] MEDS ORDERED: FENO54TA PO (20:57)
[2017-08-23] MEDS ORDERED: INSU100C4 SQ (20:58)
[2017-08-23] MEDS ORDERED: LISI-334 PO (21:00)
[2017-08-23] MEDS ORDERED: LACT1CAP19 PO (21:00)
[2017-08-23] MEDS ORDERED: NICO1PAT25 TP (21:01)
[2017-08-23] MEDS ORDERED: CEFT1VIA6 IVP (21:05)
[2017-08-23] MEDS ORDERED: AMLO10TA2 PO (21:07)
[2017-08-23] MEDS ORDERED: IPRA3AMP NEB (21:08)
--- NOTE | 2017-08-24 18:06 | DS ---
DATE OF DISCHARGE: 08/23/2017 HOSPITAL COURSE: This is a 67-year-old male patient who was admitted again with increasing shortness of breath and was basically treated for acute hypoxic hypercapnic respiratory failure, COPD exacerbation. We did treat him with steroids, IV antibiotics, and he did very well; however, he continued to complain of weakness and deconditioning and it was felt that the patient will benefit from further rehabilitation and therefore he was discharged to swing bed with the plan is for him to be discharged eventually home on a conserving device as well as Energen to be used when he goes outside. PHYSICAL EXAMINATION: GENERAL: When I examined him today, he looked well and was clearly in no apparent respiratory distress, pale, but no jaundice, cyanosis, or thyromegaly. No jugular venous distention. No limb edema. VITAL SIGNS: His heart rate was 70, blood pressure 135/76, temperature was 97.5, respiratory rate 22, and oxygen saturation was 93% on 2 liters of oxygen. HEAD, EYES, EARS, NOSE AND THROAT: Showed normocephalic, atraumatic. NECK: Supple. HEART: Showed normal first and second heart sounds with no gallop, rub or murmur. CHEST: Clear to auscultation. No crepitation or rhonchi. ABDOMEN: Distended, soft, nontender. NEUROLOGIC: He is awake, alert, responding appropriately. All cranial nerves are intact. He moves extremities without difficulty. He ambulates without assistance or assistive devices. His intake over the last 24 hours was 2200, no output was recorded. LABORATORY DATA: His lab work this morning showed a white cell count of 8800, hemoglobin 12, hematocrit 36, MCV 89 and platelet count of 163,000. His most recent chemistry showed a serum sodium 140, potassium 4.8, chloride 102, bicarbonate 28, anion gap of 10, BUN 23, creatinine 0.7, estimated GFR was 112 mL per minute. His glucose was 309. Calcium was 8.9, magnesium was 1.6. Total bilirubin, AST, ALT, alkaline phosphatase were normal. Total protein was 6.8, albumin 2.9. His blood gases on admission showed a pH of 7.36, pCO2 of 47, pO2 of 53, bicarbonate 26 and oxygen saturation was only 86% on room air. So far, all his blood cultures were negative. DISCHARGE MEDICATIONS: He was discharged to swing bed to continue on following medications, allopurinol 300 mg once a day, amlodipine besylate/benazepril 1 capsule once a day, aripiprazole for Abilify 30 mg once a day, Biotin 5000 mcg p.o. daily, Celebrex 200 mg daily, diazepam 10 mg p.o. b.i.d., Colace 100 mg once a day, duloxetine for Cymbalta 60 mg twice a day, fenofibrate 54 mg once a day, ferrous sulfate 325 mg daily, glucosamine chondroitin sulfate 2 capsules daily, metformin 500 mg 3 times a day with meals, methadone 10 mg 3 times a day, multivitamin 1 tablet once a day, omeprazole 40 mg once a day, potassium chloride 30 mEq daily and potassium chloride 10 mEq, he take 2 capsules at bedtime; quetiapine fumarate 50 mg 3 times a day, Crestor 20 mg at bedtime, sucralfate 1 tablet 3 times a day before meals and tizanidine 4 mg p.o. b.i.d. FINAL DISCHARGE DIAGNOSES: 1. Acute bronchitis. 2. Chronic obstructive pulmonary disease exacerbation. 3. Acute hypoxic respiratory failure. 4. Type 2 diabetes. 5. Hypomagnesemia. 6. Hypertension. 7. He is also known to have obstructive sleep apnea. JUAN MANUEL RAMOS MD DR: KAMINI/bell JOB#: [id number] / [id number]
== END 2017-08-23 19:36 | disposition swing bed (61) | DRG 189 ==
LOC: ER 12:25 → 1 SOUTH 14:02
PROVIDERS: ADMIT Internal Medicine; ATTEND Internal Medicine
DX: J96.01 Acute respiratory failure with hypoxia (principal); E44.0 Moderate protein-calorie malnutrition; E11.65 Type 2 diabetes mellitus with hyperglycemia; E83.42 Hypomagnesemia; J44.0 Chronic obstructive pulmonary disease with (acute) lower respiratory infection; J44.1 Chronic obstructive pulmonary disease with (acute) exacerbation; J20.9 Acute bronchitis, unspecified; J96.02 Acute respiratory failure with hypercapnia; E78.00 Pure hypercholesterolemia, unspecified; E78.5 Hyperlipidemia, unspecified; M79.7 Fibromyalgia; I10 Essential (primary) hypertension; G47.33 Obstructive sleep apnea (adult) (pediatric); F17.210 Nicotine dependence, cigarettes, uncomplicated; Z68.28 Body mass index [BMI] 28.0-28.9, adult; Z88.8 Allergy status to other drugs, medicaments and biological substances; Z86.73 Personal history of transient ischemic attack (TIA), and cerebral infarction without residual deficits; Z88.2 Allergy status to sulfonamides; Z98.41 Cataract extraction status, right eye; Z98.42 Cataract extraction status, left eye; Z85.828 Personal history of other malignant neoplasm of skin; Z83.3 Family history of diabetes mellitus; Z82.3 Family history of stroke; Z82.0 Family history of epilepsy and other diseases of the nervous system; Z79.899 Other long term (current) drug therapy
CPT/HCPCS: 36415; 36600; 71045; 80053; 81001; 82550; 82803; 82947; 83605; 83735; 83880; 84484; 85025; 87040; 93005; 94640; 96374; 96375; J0696; J1815; J2920; J2930; J3475; J7620; 97110; 97530; 99285-25

== ENCOUNTER 2017-08-23 16:23 | Inpatient (IN) | payer MEDICARE, BC ==
[~2017-08-23] VITALS: Ht 167.6 cm; Wt 78.9 kg
[2017-08-23 19:40] VITALS: BP 144/82
[2017-08-23] MEDS ORDERED: ATORVASTATIN CA80 MG PO (20:55)
[2017-08-23] MEDS ORDERED: FENO54TA PO (20:57)
[2017-08-23] MEDS ORDERED: INSU100C4 SQ (20:58)
[2017-08-23] MEDS ORDERED: LISI-334 PO (21:00)
[2017-08-23] MEDS: DULoxetine HCL 60 MG CAPSULE.DR PO SCH (21:00)
[2017-08-23] MEDS: QUEtiapine 50 MG TABLET. PO SCH (21:00)
[2017-08-23] MEDS: diazePAM 5 MG TABLET PO SCH (21:00)
[2017-08-23] MEDS: ATORVASTATIN CALCIUM 20 MG TABLET PO SCH (21:00)
[2017-08-23] MEDS: LACTOBACILLUS RHAMNOSUS GG 1 CAPSULE. PO SCH (21:00)
[2017-08-23] MEDS: POTASSIUM CHLORIDE 20 MEQ TABLET.ER. PO SCH (21:00)
[2017-08-23] MEDS ORDERED: LACT1CAP19 PO (21:00)
[2017-08-23] MEDS ORDERED: NICO1PAT25 TP (21:01)
[2017-08-23] MEDS ORDERED: CEFT1VIA6 IVP (21:05)
[2017-08-23] MEDS ORDERED: AMLO10TA2 PO (21:07)
[2017-08-23] MEDS ORDERED: IPRA3AMP NEB (21:08)
[2017-08-23] MEDS ORDERED: DEXTROSE 50% 25 GM / 50ML DISP.SYRIN. IV PRN (21:15)
[2017-08-23] MEDS: IPRATRPIUM/ALBUTEROL 0.5/2.5MG 3 ML NEBU. NEB SCH (21:34)
[2017-08-23 23:00] VITALS: BP 144/82
--- NOTE | 2017-08-23 23:00 | NUR ---
Swing Bed Admission Patient Handbook for [facility] given to patient. Nursing Problem:Patient admitted to [facility] for PT/OT for strengthening and improving balance. Cognitive/Behavioral:Patient is alert and oriented. Forgetful at times. Pain:Patient rated pain as 0/10. Respiratory Status:Patient is on 2L O2 via nasal cannula. Skin: Patient has open area on coccyx. applying cream. educating patient to turn off of bottom. Bowel/Bladder Continence:Patient is continent of bowel and bladder. ADL Functional Status: Patient ambulates with cane. Patient can feed his self with set-up. Patient requires assistance with all other ADLs. Fall(s) prior to admission? No [facility]
[2017-08-24] MEDS: IPRATRPIUM/ALBUTEROL 0.5/2.5MG 3 ML NEBU. NEB SCH ×4 (05:45→20:21)
[2017-08-24] MEDS: INSULIN ASPART 300 UNITS/3 ML INSULN.PEN SQ SCH ×7 (07:30→20:31)
[2017-08-24 08:00] VITALS: BP 139/84
[2017-08-24] MEDS: LACTOBACILLUS RHAMNOSUS GG 1 CAPSULE. PO SCH ×2 (08:51→20:23)
[2017-08-24] MEDS: QUEtiapine 50 MG TABLET. PO SCH ×3 (08:52→20:21)
[2017-08-24] MEDS: METHADONE 5 MG TABLET. PO SCH ×3 (08:52→20:22)
[2017-08-24] MEDS: DOCUSATE SODIUM 100 MG CAPSULE PO SCH ×2 (08:52→20:23)
[2017-08-24] MEDS: FERROUS SULFATE 325 MG TABLET. PO SCH (08:53)
[2017-08-24] MEDS: diazePAM 5 MG TABLET PO SCH ×2 (08:53→20:21)
[2017-08-24] MEDS: PANTOPRAZOLE 40 MG TABLET. PO SCH (08:53)
[2017-08-24] MEDS: MULTIVITAMIN with MINERAL TABLET. PO SCH (08:53)
[2017-08-24] MEDS: SUCRALFATE 1 GM TABLET. PO SCH ×4 (08:53→20:21)
[2017-08-24] MEDS: DULoxetine HCL 60 MG CAPSULE.DR PO SCH ×2 (08:53→20:22)
[2017-08-24] MEDS: predniSONE 20 MG TABLET PO SCH (08:54)
[2017-08-24] MEDS: ALLOPURINOL 300 MG TABLET. PO SCH (08:54)
[2017-08-24] MEDS: CELECOXIB 200 MG CAPSULE PO SCH (08:54)
[2017-08-24] MEDS: POTASSIUM CHLORIDE 20 MEQ TABLET.ER. PO SCH ×2 (08:56→20:23)
[2017-08-24] MEDS: LISINOPRIL 20 MG TABLET PO SCH (08:56)
[2017-08-24] MEDS: NICOTINE 14MG PATCH. TD SCH (08:57)
[2017-08-24] MEDS: amLODIPine BESYLATE 10 MG TABLET PO SCH (08:57)
[2017-08-24] MEDS: metFORMIN 500 MG TABLET PO SCH ×4 (08:57→20:21)
[2017-08-24] MEDS: FENOFIBRATE NANOCRYSTALLIZED 48 MG TABLET PO SCH (09:26)
[2017-08-24] MEDS: ARIPiprazole 15 MG TABLET PO SCH (09:26)
[2017-08-24] MEDS: GLUCOSAMINE/CHOND 500/400MG CAPSULE PO SCH (09:27)
[2017-08-24] MEDS: cefTRIAXone IV Push 1 GM VIAL. IVP SCH (16:57)
[2017-08-24 18:35] VITALS: BP 124/70
[2017-08-24] MEDS: ATORVASTATIN CALCIUM 20 MG TABLET PO SCH (20:21)
--- NOTE | 2017-08-24 20:35 | NUR ---
Swing Bed Admission Patient Handbook for [facility] given to patient. Nursing Problem:Patient admitted to [facility] for PT/OT for strengthening and improving balance. Cognitive/Behavioral:Patient is alert and oriented. Forgetful at times. Pain:Patient rated pain as 3/10. Respiratory Status:Patient is on 2L O2 via nasal cannula. Skin: Patient has open area on coccyx. applying cream. educating patient to turn off of bottom. Bowel/Bladder Continence:Patient is continent of bowel and bladder. ADL Functional Status: Patient ambulates with cane. Patient can feed his self with set-up. Patient requires assistance with all other ADLs. Fall(s) prior to admission? No
[2017-08-25] MEDS: IPRATRPIUM/ALBUTEROL 0.5/2.5MG 3 ML NEBU. NEB SCH ×4 (05:22→20:39)
[2017-08-25 07:20] VITALS: BP 147/89
[2017-08-25] MEDS: INSULIN ASPART 300 UNITS/3 ML INSULN.PEN SQ SCH ×7 (07:30→20:40)
[2017-08-25] MEDS: PANTOPRAZOLE 40 MG TABLET. PO SCH (07:35)
[2017-08-25] MEDS: DOCUSATE SODIUM 100 MG CAPSULE PO SCH ×2 (08:17→20:39)
[2017-08-25] MEDS: FERROUS SULFATE 325 MG TABLET. PO SCH (08:17)
[2017-08-25] MEDS: CELECOXIB 200 MG CAPSULE PO SCH (08:17)
[2017-08-25] MEDS: diazePAM 5 MG TABLET PO SCH ×2 (08:17→20:39)
[2017-08-25] MEDS: MULTIVITAMIN with MINERAL TABLET. PO SCH (08:18)
[2017-08-25] MEDS: POTASSIUM CHLORIDE 20 MEQ TABLET.ER. PO SCH ×2 (08:18→20:37)
[2017-08-25] MEDS: metFORMIN 500 MG TABLET PO SCH ×3 (08:19→20:38)
[2017-08-25] MEDS: QUEtiapine 50 MG TABLET. PO SCH ×3 (08:19→20:37)
[2017-08-25] MEDS: LACTOBACILLUS RHAMNOSUS GG 1 CAPSULE. PO SCH ×2 (08:19→20:37)
[2017-08-25] MEDS: METHADONE 5 MG TABLET. PO SCH ×3 (08:19→20:38)
[2017-08-25] MEDS: ALLOPURINOL 300 MG TABLET. PO SCH (08:19)
[2017-08-25] MEDS: amLODIPine BESYLATE 10 MG TABLET PO SCH (08:20)
[2017-08-25] MEDS: LISINOPRIL 20 MG TABLET PO SCH (08:21)
[2017-08-25] MEDS: predniSONE 20 MG TABLET PO SCH (08:21)
[2017-08-25] MEDS: NICOTINE 14MG PATCH. TD SCH (08:22)
[2017-08-25] MEDS: DULoxetine HCL 60 MG CAPSULE.DR PO SCH ×2 (08:23→20:37)
[2017-08-25] MEDS: GLUCOSAMINE/CHOND 500/400MG CAPSULE PO SCH (08:25)
[2017-08-25] MEDS: FENOFIBRATE NANOCRYSTALLIZED 48 MG TABLET PO SCH (08:26)
[2017-08-25] MEDS: ARIPiprazole 15 MG TABLET PO SCH (08:26)
[2017-08-25] MEDS: SUCRALFATE 1 GM TABLET. PO SCH ×2 (12:21→15:44)
[2017-08-25] MEDS: cefTRIAXone IV Push 1 GM VIAL. IVP SCH (15:50)
[2017-08-25 18:47] VITALS: BP 120/63
--- NOTE | 2017-08-25 19:07 | NUR ---
Swing Bed Admission Patient Handbook for [facility] given to patient. Nursing Problem:Patient admitted to [facility] for PT/OT for strengthening and improving balance. Cognitive/Behavioral:Patient is alert and oriented. Forgetful at times. Pain:Patient rated pain as 0/10. Respiratory Status:Patient is on 2L O2 via nasal cannula. Skin: Patient has open area on coccyx. applying cream. educating patient to turn off of bottom. Bowel/Bladder Continence:Patient is continent of bowel and bladder. ADL Functional Status: Patient ambulates with cane. Patient can feed his self with set-up. Patient requires assistance with all other ADLs. Fall(s) prior to admission? No [facility]
[2017-08-25] MEDS: ATORVASTATIN CALCIUM 20 MG TABLET PO SCH (20:39)
[2017-08-26] MEDS: IPRATRPIUM/ALBUTEROL 0.5/2.5MG 3 ML NEBU. NEB SCH ×4 (05:18→21:19)
[2017-08-26] MEDS: INSULIN ASPART 300 UNITS/3 ML INSULN.PEN SQ SCH ×7 (07:30→21:00)
[2017-08-26 07:50] VITALS: BP 136/82
[2017-08-26] MEDS: SUCRALFATE 1 GM TABLET. PO SCH ×3 (08:06→16:09)
[2017-08-26] MEDS: POTASSIUM CHLORIDE 20 MEQ TABLET.ER. PO SCH ×2 (08:07→20:59)
[2017-08-26] MEDS: DOCUSATE SODIUM 100 MG CAPSULE PO SCH ×2 (08:07→20:59)
[2017-08-26] MEDS: MULTIVITAMIN with MINERAL TABLET. PO SCH (08:08)
[2017-08-26] MEDS: LACTOBACILLUS RHAMNOSUS GG 1 CAPSULE. PO SCH ×2 (08:08→20:59)
[2017-08-26] MEDS: predniSONE 10 MG TABLET PO SCH (08:08)
[2017-08-26] MEDS: PANTOPRAZOLE 40 MG TABLET. PO SCH (08:08)
[2017-08-26] MEDS: ALLOPURINOL 300 MG TABLET. PO SCH (08:09)
[2017-08-26] MEDS: CELECOXIB 200 MG CAPSULE PO SCH (08:09)
[2017-08-26] MEDS: DULoxetine HCL 60 MG CAPSULE.DR PO SCH ×2 (08:09→20:59)
[2017-08-26] MEDS: FERROUS SULFATE 325 MG TABLET. PO SCH (08:09)
[2017-08-26] MEDS: METHADONE 5 MG TABLET. PO SCH ×3 (08:10→20:59)
[2017-08-26] MEDS: QUEtiapine 50 MG TABLET. PO SCH ×3 (08:11→20:59)
[2017-08-26] MEDS: LISINOPRIL 20 MG TABLET PO SCH (08:12)
[2017-08-26] MEDS: diazePAM 5 MG TABLET PO SCH ×2 (08:12→21:00)
[2017-08-26] MEDS: amLODIPine BESYLATE 10 MG TABLET PO SCH (08:15)
[2017-08-26] MEDS: NICOTINE 14MG PATCH. TD SCH (08:17)
[2017-08-26] MEDS: ARIPiprazole 15 MG TABLET PO SCH (10:03)
[2017-08-26] MEDS: GLUCOSAMINE/CHOND 500/400MG CAPSULE PO SCH (10:04)
[2017-08-26] MEDS: FENOFIBRATE NANOCRYSTALLIZED 48 MG TABLET PO SCH (10:04)
[2017-08-26] MEDS: metFORMIN 500 MG TABLET PO SCH ×2 (12:20→17:10)
[2017-08-26 19:05] VITALS: BP 123/69
--- NOTE | 2017-08-26 19:44 | NUR ---
Swing Bed Nursing Note Nursing Problem:Patient admitted to [facility] for PT/OT for generalized strengthening following COPD exacerbation. Cognitive/Behavioral:Patient is A/O x4, but can be forgetful. Patient is pleasant and cooperative with all cares. Pain:Patient has denied any pain this shift. Respiratory Status:Patient is on 2L O2 via nasal cannula. Skin:Patient has a pressure ulcer on his right buttock that is covered with a foam dressing. Bowel/Bladder Continence:Patient is continent of bowel and bladder. ADL Functional Status:Patient has been independent with all ADLs this shift.
[2017-08-26] MEDS: CEFPODOXIME PROXETIL 100 MG TABLET PO SCH (20:58)
[2017-08-26] MEDS: ATORVASTATIN CALCIUM 20 MG TABLET PO SCH (20:59)
--- NOTE | 2017-08-26 21:05 | NUR ---
Swing Bed Nursing Note Nursing Problem:Patient admitted to [facility] for PT/OT for generalized strengthening following COPD exacerbation. Cognitive/Behavioral:Patient is A/O x4, but can be forgetful. Patient is pleasant and cooperative with all cares. Pain:Patient has denied any pain this shift. Respiratory Status:Patient is on 2L O2 via nasal cannula. Skin:Patient has a pressure ulcer on his right upper buttock foam dressing changed tonight Bowel/Bladder Continence:Patient is continent of bowel and bladder. ADL Functional Status:Patient has been independent with all ADLs this shift. Remind pt to alternate side during the night to relieve pressure
[2017-08-27] MEDS: IPRATRPIUM/ALBUTEROL 0.5/2.5MG 3 ML NEBU. NEB SCH ×4 (05:49→21:34)
[2017-08-27] MEDS: INSULIN ASPART 300 UNITS/3 ML INSULN.PEN SQ SCH ×7 (07:30→21:08)
[2017-08-27 07:56] VITALS: BP 156/90
[2017-08-27] MEDS: diazePAM 5 MG TABLET PO SCH ×2 (08:06→20:59)
[2017-08-27] MEDS: DOCUSATE SODIUM 100 MG CAPSULE PO SCH ×2 (08:06→21:00)
[2017-08-27] MEDS: LISINOPRIL 20 MG TABLET PO SCH (08:06)
[2017-08-27] MEDS: DULoxetine HCL 60 MG CAPSULE.DR PO SCH ×2 (08:06→21:00)
[2017-08-27] MEDS: SUCRALFATE 1 GM TABLET. PO SCH ×3 (08:06→17:10)
[2017-08-27] MEDS: CEFPODOXIME PROXETIL 100 MG TABLET PO SCH ×2 (08:06→20:59)
[2017-08-27] MEDS: METHADONE 5 MG TABLET. PO SCH ×3 (08:08→21:00)
[2017-08-27] MEDS: amLODIPine BESYLATE 10 MG TABLET PO SCH (08:08)
[2017-08-27] MEDS: MULTIVITAMIN with MINERAL TABLET. PO SCH (08:09)
[2017-08-27] MEDS: QUEtiapine 50 MG TABLET. PO SCH ×3 (08:09→20:59)
[2017-08-27] MEDS: CELECOXIB 200 MG CAPSULE PO SCH (08:09)
[2017-08-27] MEDS: FERROUS SULFATE 325 MG TABLET. PO SCH (08:10)
[2017-08-27] MEDS: PANTOPRAZOLE 40 MG TABLET. PO SCH (08:10)
[2017-08-27] MEDS: POTASSIUM CHLORIDE 20 MEQ TABLET.ER. PO SCH ×2 (08:10→21:00)
[2017-08-27] MEDS: metFORMIN 500 MG TABLET PO SCH ×3 (08:10→17:10)
[2017-08-27] MEDS: ALLOPURINOL 300 MG TABLET. PO SCH (08:11)
[2017-08-27] MEDS: predniSONE 10 MG TABLET PO SCH (08:11)
[2017-08-27] MEDS: LACTOBACILLUS RHAMNOSUS GG 1 CAPSULE. PO SCH ×2 (08:11→20:59)
[2017-08-27] MEDS: ARIPiprazole 15 MG TABLET PO SCH (08:12)
[2017-08-27] MEDS: GLUCOSAMINE/CHOND 500/400MG CAPSULE PO SCH (08:13)
[2017-08-27] MEDS: FENOFIBRATE NANOCRYSTALLIZED 48 MG TABLET PO SCH (08:13)
[2017-08-27] MEDS: NICOTINE 14MG PATCH. TD SCH (08:15)
[2017-08-27] MEDS: tiZANidine 4 MG TABLET. PO PRN (13:09)
--- NOTE | 2017-08-27 16:21 | NUR ---
Swing Bed Nursing Note Nursing Problem: [facility] for PT/OT for generalized strengthening following a COPD exacerbation. Cognitive/Behavioral: Patient is A/O x4 with occasional forgetfulness. Pain: Patient c/o pain around 1300. Was given medication and upon reassessment, rated pain at 2/10. Respiratory Status: Patient is on 2L O2 at all times. Skin: Patient has a pressure ulcer on his right buttock. All other skin is intact. Bowel/Bladder Continence: Patient it continent of bowel and bladder. ADL Functional Status: Patient is independent with all ADLs.
[2017-08-27 19:39] VITALS: BP 134/71
--- NOTE | 2017-08-27 20:10 | NUR ---
Swing Bed Nursing Note Nursing Problem:Patient admitted to [facility] for PT/OT for generalized strengthening following COPD exacerbation. Cognitive/Behavioral:Patient is A/O x4, but can be forgetful. Patient is pleasant and cooperative with all cares. Pain:Patient has denied any pain this shift. Respiratory Status:Patient is on 2L O2 via nasal cannula. Skin:Patient has a pressure ulcer on his right upper buttock foam dressing changed tonight Bowel/Bladder Continence:Patient is continent of bowel and bladder. ADL Functional Status:Patient has been independent with all ADLs this shift. Remind pt to alternate side during the night to relieve pressure
[2017-08-27] MEDS: ATORVASTATIN CALCIUM 20 MG TABLET PO SCH (21:00)
[2017-08-28 05:20] VITALS: BP 153/76
[2017-08-28] MEDS: IPRATRPIUM/ALBUTEROL 0.5/2.5MG 3 ML NEBU. NEB SCH ×4 (05:44→21:31)
[2017-08-28] MEDS: INSULIN ASPART 300 UNITS/3 ML INSULN.PEN SQ SCH ×7 (07:30→20:20)
[2017-08-28] MEDS: diazePAM 5 MG TABLET PO SCH ×2 (08:40→20:23)
[2017-08-28] MEDS: QUEtiapine 50 MG TABLET. PO SCH ×3 (08:40→20:23)
[2017-08-28] MEDS: LISINOPRIL 20 MG TABLET PO SCH (08:41)
[2017-08-28] MEDS: amLODIPine BESYLATE 10 MG TABLET PO SCH (08:42)
[2017-08-28] MEDS: METHADONE 5 MG TABLET. PO SCH ×4 (08:43→21:45)
[2017-08-28] MEDS: metFORMIN 500 MG TABLET PO SCH ×3 (08:43→17:28)
[2017-08-28] MEDS: predniSONE 10 MG TABLET PO SCH (08:44)
[2017-08-28] MEDS: CEFPODOXIME PROXETIL 100 MG TABLET PO SCH ×2 (08:44→20:22)
[2017-08-28] MEDS: ALLOPURINOL 300 MG TABLET. PO SCH (08:44)
[2017-08-28] MEDS: CELECOXIB 200 MG CAPSULE PO SCH (08:45)
[2017-08-28] MEDS: FERROUS SULFATE 325 MG TABLET. PO SCH (08:45)
[2017-08-28] MEDS: SUCRALFATE 1 GM TABLET. PO SCH ×3 (08:46→17:28)
[2017-08-28] MEDS: MULTIVITAMIN with MINERAL TABLET. PO SCH (08:46)
[2017-08-28] MEDS: LACTOBACILLUS RHAMNOSUS GG 1 CAPSULE. PO SCH ×2 (08:46→20:23)
[2017-08-28] MEDS: DULoxetine HCL 60 MG CAPSULE.DR PO SCH ×2 (08:46→20:23)
[2017-08-28] MEDS: DOCUSATE SODIUM 100 MG CAPSULE PO SCH ×2 (08:46→20:23)
[2017-08-28] MEDS: PANTOPRAZOLE 40 MG TABLET. PO SCH (08:46)
[2017-08-28] MEDS: POTASSIUM CHLORIDE 20 MEQ TABLET.ER. PO SCH ×2 (08:47→20:23)
[2017-08-28] MEDS: NICOTINE 14MG PATCH. TD SCH (08:47)
[2017-08-28] MEDS: FENOFIBRATE NANOCRYSTALLIZED 48 MG TABLET PO SCH (08:51)
[2017-08-28] MEDS: ARIPiprazole 15 MG TABLET PO SCH (08:51)
[2017-08-28] MEDS: GLUCOSAMINE/CHOND 500/400MG CAPSULE PO SCH (08:52)
--- NOTE | 2017-08-28 12:33 | NUR ---
Dr. Meier aware of patient's CBC, no other concerns at this time.
[2017-08-28] MEDS: tiZANidine 4 MG TABLET. PO PRN (15:12)
[2017-08-28] MEDS ORDERED: NICOTINE 14MG PATCH. TD ONE (15:45)
[2017-08-28] MEDS ORDERED: INSULIN ASPART 300 UNITS/3 ML INSULN.PEN SQ ONE ×2 (17:15→20:00)
--- NOTE | 2017-08-28 17:59 | NUR ---
Swing Bed Nursing Note Nursing Problem: [facility]/OT for generalized strengthening following COPD exacerbation. Cognitive/Behavioral: Patient is A/O x4 with occasional forgetfulness. Patient is pleasant and cooperative with all cares. Pain: Patient c/o pain this p.m. Methadone and Tizanidine were administered and the patient reported great pain relief. Respiratory Status: Patient is on 2L O2 at all times. Skin: Patient has a pressure ulcer on his right buttock that is healing. Bowel/Bladder Continence: Patient is continent of bowel and bladder. ADL Functional Status: Patient is independent with all ADLs.
[2017-08-28 18:49] VITALS: BP 121/74
[2017-08-28] MEDS: ATORVASTATIN CALCIUM 20 MG TABLET PO SCH (20:22)
[2017-08-28] MEDS: INSULIN DETEMIR 300 UNITS/3 ML INSULN.PEN. SQ SCH (20:31)
[2017-08-29] MEDS: IPRATRPIUM/ALBUTEROL 0.5/2.5MG 3 ML NEBU. NEB SCH ×4 (05:42→21:14)
[2017-08-29 06:25] VITALS: BP 143/81
[2017-08-29] MEDS: INSULIN ASPART 300 UNITS/3 ML INSULN.PEN SQ SCH ×7 (07:30→20:20)
[2017-08-29] MEDS: ARIPiprazole 15 MG TABLET PO SCH (08:00)
[2017-08-29] MEDS: GLUCOSAMINE/CHOND 500/400MG CAPSULE PO SCH (08:18)
[2017-08-29] MEDS: FERROUS SULFATE 325 MG TABLET. PO SCH (08:19)
[2017-08-29] MEDS: METHADONE 5 MG TABLET. PO SCH ×3 (08:19→20:08)
[2017-08-29] MEDS: POTASSIUM CHLORIDE 20 MEQ TABLET.ER. PO SCH ×2 (08:20→20:07)
[2017-08-29] MEDS: metFORMIN 500 MG TABLET PO SCH ×3 (08:21→17:08)
[2017-08-29] MEDS: LACTOBACILLUS RHAMNOSUS GG 1 CAPSULE. PO SCH ×2 (08:21→20:07)
[2017-08-29] MEDS: CELECOXIB 200 MG CAPSULE PO SCH (08:21)
[2017-08-29] MEDS: DULoxetine HCL 60 MG CAPSULE.DR PO SCH ×2 (08:22→20:07)
[2017-08-29] MEDS: amLODIPine BESYLATE 10 MG TABLET PO SCH (08:22)
[2017-08-29] MEDS: predniSONE 20 MG TABLET PO SCH (08:22)
[2017-08-29] MEDS: MULTIVITAMIN with MINERAL TABLET. PO SCH (08:23)
[2017-08-29] MEDS: QUEtiapine 50 MG TABLET. PO SCH ×3 (08:23→20:08)
[2017-08-29] MEDS: LISINOPRIL 20 MG TABLET PO SCH (08:23)
[2017-08-29] MEDS: diazePAM 5 MG TABLET PO SCH ×2 (08:23→20:08)
[2017-08-29] MEDS: ALLOPURINOL 300 MG TABLET. PO SCH (08:24)
[2017-08-29] MEDS: NICOTINE 14MG PATCH. TD SCH (08:24)
[2017-08-29] MEDS: CEFPODOXIME PROXETIL 100 MG TABLET PO SCH (08:24)
[2017-08-29] MEDS: SUCRALFATE 1 GM TABLET. PO SCH ×3 (08:45→17:09)
[2017-08-29] MEDS: PANTOPRAZOLE 40 MG TABLET. PO SCH (08:45)
[2017-08-29] MEDS: DOCUSATE SODIUM 100 MG CAPSULE PO SCH ×2 (09:00→20:08)
[2017-08-29] MEDS: FENOFIBRATE NANOCRYSTALLIZED 48 MG TABLET PO SCH (09:00)
--- NOTE | 2017-08-29 09:08 | NUR ---
Swing Bed Nursing Note Nursing Problem: Patient admitted to [facility] for PT/OT for generalized strengthening following COPD exacerbation. Cognitive/Behavioral: Patient is A/O x4 with occasional forgetfulness. Patient is pleasant and cooperative with all cares. Pain: Patient c/o pain this p.m. Methadone and Tizanidine were administered and the patient reported great pain relief. Respiratory Status: Patient is on 2L O2 at all times. Skin: Patient has a pressure ulcer on his right buttock that is healing. Bowel/Bladder Continence: Patient is continent of bowel and bladder. ADL Functional Status: Patient is independent with all ADLs.
[2017-08-29 18:17] VITALS: BP 132/81
[2017-08-29] MEDS: ATORVASTATIN CALCIUM 20 MG TABLET PO SCH (20:07)
[2017-08-29] MEDS: tiZANidine 4 MG TABLET. PO PRN (20:08)
[2017-08-29] MEDS: INSULIN DETEMIR 300 UNITS/3 ML INSULN.PEN. SQ SCH (20:18)
--- NOTE | 2017-08-29 22:15 | NUR ---
Swing Bed Nursing Note Nursing Problem: Pt [facility] to [facility] for PT/OT for generalized strengthening following COPD exacerbation. Pt plans on returning back home with his . Cognitive/Behavioral: Pt is A&Ox4. Pt is pleasant and cooperative with assessment & all cares. Pt laying in bed watching TV at change of shift. Pt stated that he had a good day. Pain: Pt c/o mild chronic back pain, stating that its just my normal discomfort. Denied needing any extra pain medication other than his scheduled medications. Respiratory Status: Pt is on 2L O2 via nasal cannula. Pt denies cough or SOA. Skin: Pt has a pressure ulcer on his right upper buttock foam dressing changed tonight, scant amount of drainage noted. Bowel/Bladder Continence: Pt is continent of bowel and bladder. LBM 08/28/17 ADL Functional Status: Pt is independent with all ADLs. Pt uses a cane with up ambulating. Pt takes medications whole.
[2017-08-30] MEDS: IPRATRPIUM/ALBUTEROL 0.5/2.5MG 3 ML NEBU. NEB SCH ×4 (05:52→20:28)
[2017-08-30 05:55] VITALS: BP 124/70
[2017-08-30] MEDS: PANTOPRAZOLE 40 MG TABLET. PO SCH (09:18)
[2017-08-30] MEDS: ALLOPURINOL 300 MG TABLET. PO SCH (09:18)
[2017-08-30] MEDS: diazePAM 5 MG TABLET PO SCH ×2 (09:18→20:05)
[2017-08-30] MEDS: SUCRALFATE 1 GM TABLET. PO SCH ×3 (09:18→16:52)
[2017-08-30] MEDS: GLUCOSAMINE/CHOND 500/400MG CAPSULE PO SCH (09:18)
[2017-08-30] MEDS: LACTOBACILLUS RHAMNOSUS GG 1 CAPSULE. PO SCH ×2 (09:18→20:04)
[2017-08-30] MEDS: CELECOXIB 200 MG CAPSULE PO SCH (09:18)
[2017-08-30] MEDS: DULoxetine HCL 60 MG CAPSULE.DR PO SCH ×2 (09:18→20:04)
[2017-08-30] MEDS: FENOFIBRATE NANOCRYSTALLIZED 48 MG TABLET PO SCH (09:18)
[2017-08-30] MEDS: MULTIVITAMIN with MINERAL TABLET. PO SCH (09:19)
[2017-08-30] MEDS: FERROUS SULFATE 325 MG TABLET. PO SCH (09:19)
[2017-08-30] MEDS: DOCUSATE SODIUM 100 MG CAPSULE PO SCH ×2 (09:19→20:04)
[2017-08-30] MEDS: metFORMIN 500 MG TABLET PO SCH ×3 (09:19→16:53)
[2017-08-30] MEDS: QUEtiapine 50 MG TABLET. PO SCH ×3 (09:19→20:05)
[2017-08-30] MEDS: LISINOPRIL 20 MG TABLET PO SCH (09:20)
[2017-08-30] MEDS: predniSONE 20 MG TABLET PO SCH (09:20)
[2017-08-30] MEDS: amLODIPine BESYLATE 10 MG TABLET PO SCH (09:20)
[2017-08-30] MEDS: NICOTINE 14MG PATCH. TD SCH (09:21)
[2017-08-30] MEDS: METHADONE 5 MG TABLET. PO SCH ×3 (09:21→20:04)
[2017-08-30] MEDS: ARIPiprazole 15 MG TABLET PO SCH (09:22)
[2017-08-30] MEDS: POTASSIUM CHLORIDE 20 MEQ TABLET.ER. PO SCH ×2 (12:00→20:05)
[2017-08-30] MEDS: INSULIN ASPART 300 UNITS/3 ML INSULN.PEN SQ SCH ×7 (16:57→20:12)
[2017-08-30 18:21] VITALS: BP 125/76
[2017-08-30] MEDS: ATORVASTATIN CALCIUM 20 MG TABLET PO SCH (20:05)
[2017-08-30] MEDS: INSULIN DETEMIR 300 UNITS/3 ML INSULN.PEN. SQ SCH (20:13)
[2017-08-31] MEDS: IPRATRPIUM/ALBUTEROL 0.5/2.5MG 3 ML NEBU. NEB SCH ×2 (05:33→09:54)
[2017-08-31 05:48] VITALS: BP 120/65
[2017-08-31] MEDS: MULTIVITAMIN with MINERAL TABLET. PO SCH (08:38)
[2017-08-31] MEDS: LACTOBACILLUS RHAMNOSUS GG 1 CAPSULE. PO SCH (08:39)
[2017-08-31] MEDS: METHADONE 5 MG TABLET. PO SCH (08:39)
[2017-08-31] MEDS: CELECOXIB 200 MG CAPSULE PO SCH (08:39)
[2017-08-31] MEDS: DULoxetine HCL 60 MG CAPSULE.DR PO SCH (08:39)
[2017-08-31] MEDS: ALLOPURINOL 300 MG TABLET. PO SCH (08:39)
[2017-08-31] MEDS: DOCUSATE SODIUM 100 MG CAPSULE PO SCH (08:40)
[2017-08-31] MEDS: SUCRALFATE 1 GM TABLET. PO SCH ×2 (08:40→11:37)
[2017-08-31] MEDS: PANTOPRAZOLE 40 MG TABLET. PO SCH (08:40)
[2017-08-31] MEDS: predniSONE 20 MG TABLET PO SCH (08:40)
[2017-08-31 08:41] VITALS: BP 120/65
[2017-08-31] MEDS: metFORMIN 500 MG TABLET PO SCH ×2 (08:41→11:37)
[2017-08-31] MEDS: LISINOPRIL 20 MG TABLET PO SCH (08:41)
[2017-08-31] MEDS: amLODIPine BESYLATE 10 MG TABLET PO SCH (08:41)
[2017-08-31] MEDS: NICOTINE 14MG PATCH. TD SCH (08:41)
[2017-08-31] MEDS: QUEtiapine 50 MG TABLET. PO SCH (08:42)
[2017-08-31] MEDS: GLUCOSAMINE/CHOND 500/400MG CAPSULE PO SCH (08:42)
[2017-08-31] MEDS: FERROUS SULFATE 325 MG TABLET. PO SCH (08:42)
[2017-08-31] MEDS: ARIPiprazole 15 MG TABLET PO SCH (08:42)
[2017-08-31] MEDS: diazePAM 5 MG TABLET PO SCH (08:43)
[2017-08-31] MEDS: FENOFIBRATE NANOCRYSTALLIZED 48 MG TABLET PO SCH (08:43)
[2017-08-31] MEDS: INSULIN ASPART 300 UNITS/3 ML INSULN.PEN SQ SCH ×4 (08:45→11:49)
--- NOTE | 2017-08-31 10:50 | PDOC3 ---
Discharge Summary Visit Information Date of Admission: Aug 23, 2017 Date of Discharge: Aug 31, 2017 Final Diagnosis [facility]GE DIAGNOSES: 1. Acute bronchitis. 2. Chronic obstructive pulmonary disease exacerbation. 3. Acute hypoxic respiratory failure. 4. Type 2 diabetes. 5. Hypomagnesemia. 6. Hypertension. 7. He is also known to have obstructive sleep apnea. 8. WEAKNESS 8. CHRONIC HYPOXIC RESPIRATORY FAILURE Problems: Brief Hospital Course Allergies Allergies Coded Allergies Type Severity Reaction Last Updated Verified Sulfa (Sulfonamide Antibiotics) Allergy Intermediate 08/20/17 No liraglutide Allergy Intermediate 08/20/17 No quinine Allergy Intermediate 08/20/17 Yes Vital Signs Vital Signs Date Time Temp Pulse Resp B/P (MAP) Pulse Ox O2 Delivery O2 Flow Rate FiO2 08/31/17 09:55 97 Room Air 08/31/17 08:41 54 120/65 08/31/17 08:39 2.0 08/31/17 05:48 98.0 17 Lab Results Laboratory Tests Test 08/29/17 11:12 08/29/17 16:26 08/29/17 19:32 08/30/17 07:05 Glucose (Fingerstick) 227 mg/dL (70-99) 282 mg/dL (70-99) 253 mg/dL (70-99) 158 mg/dL (70-99) Test 08/30/17 11:40 08/30/17 16:55 08/30/17 19:38 08/31/17 07:19 Glucose (Fingerstick) 171 mg/dL (70-99) 200 mg/dL (70-99) 253 mg/dL (70-99) 166 mg/dL (70-99) Brief Hospital Course Mr. Claire is a 67 old [sex] who presented with [ ] HISTORY OF PRESENT ILLNESS: The patient is a 67-year-old male patient who was discharged from this hospital on 08/08, who apparently was brought to the Emergency Room by his . He apparently was found to be extremely hypoxic at home with oxygen saturation of only 70%. Home health nurse started him on 2 liters of oxygen. It improved to 85% and basically the patient called his primary care physician who recommended that the patient should come to the Emergency Room. The patient did complain of cough with whitish to yellowish sputum, shortness of breath, but denied any chills, rigors or fever. He was investigated in the Emergency Room and was admitted with COPD exacerbation. AFTER THIS HOSPITALIZATION HE WAS ADMITTED TO SWING BED WITH EXTREME WEAKNESS AND UNDERWENT PT AND OT, AND PULMONARY TREATMENTS. HE PROGRESSED NICELY AND GOT A LITTLE BETTER EVERY DAY. HE WAS STILL REQUIRING SOME O2 AND WILL NEED TO BE DISCHARGED HOME ON OXYGEN. Discharge Information Condition at Discharge: Improved, Stable Disposition/Orders: D/C to Home Dischare Medications Current Medications Allopurinol (Zyloprim) 300 mg DAILY PO Last administered on 08/31/17 08:39; Start 08/24/17 at 09:00 Amlodipine Besylate (Norvasc) 10 mg DAILY PO Last administered on 08/31/17 08: 41; Start 08/24/17 at 09:00 Ceftriaxone Sodium (Rocephin) 1 gm Q24H IVP Last administered on 08/25/17 15:50 ; Start 08/24/17 at 16:00; Stop 08/26/17 at 09:37; Status DC Celecoxib (CeleBREX) 200 mg DAILY PO Last administered on 08/31/17 08:39; Start 08/24/17 at 09:00 Docusate Sodium (Colace) 100 mg BID PO Last administered on 08/31/17 08:40; Start 08/24/17 at 09:00 Duloxetine HCl (Cymbalta) 60 mg BID PO Last administered on 08/31/17 08:39; Start 08/23/17 at 21:00 Ferrous Sulfate (Feosol) 325 mg DAILY PO Last administered on 08/31/17 08:42; Start 08/24/17 at 09:00 Albuterol/ Ipratropium (Duoneb) 3 ml QID NEB Last administered on 08/31/17 09: 54; Start 08/23/17 at 21:00 Lactobacillus Rhamnosus (Culturelle) 1 cap BID PO Last administered on 08:39; Start 08/23/17 at 21:00 Lisinopril (Prinivil) 20 mg DAILY PO Last administered on 08/31/17 08:41; Start 08/24/17 at 09:00 Metformin HCl (Glucophage) 500 mg TIDWMEALS PO Last administered on 08/31/17 08:41; Start 08/24/17 at 08:00 Nicotine (Nicoderm Cq 14mg) 1 patch DAILY TD Last administered on 08/31/17 08: 41; Start 08/24/17 at 09:00 Potassium Chloride (Klor-Con) 30 meq DAILY PO Last administered on 08/30/17 12: 00; Start 08/24/17 at 09:00 Quetiapine Fumarate (SEROquel) 50 mg TID PO Last administered on 08/31/17 08: 42; Start 08/23/17 at 21:00 Sucralfate (Carafate) 1 gm TIDAC PO Last administered on 08/31/17 08:40; Start 08/24/17 at 07:30 Tizanidine HCl (Zanaflex) 4 mg PRN BID PRN PO PAIN Last administered on 20:08; Start 08/23/17 at 20:45 Aripiprazole (Abilify) 30 mg DAILYWBKFT PO Last administered on 08/31/17 08:42 ; Start 08/24/17 at 08:00 Atorvastatin Calcium (Lipitor) 80 mg QHS PO Last administered on 08/30/17 20:05 ; Start 08/23/17 at 21:00 Diazepam (Valium) 10 mg BID PO Last administered on 08/31/17 08:43; Start 08/23 at 21:00 Fenofibrate (Tricor) 48 mg DAILY PO Last administered on 08/31/17 08:43; Start 08/24/17 at 09:00 Glucosamine/ Chondroitin (Glucosamine-Chondroitin 500/400mg) 2 cap DAILY PO Last administered on 08/31/17 08:42; Start 08/24/17 at 09:00 Insulin Aspart (NovoLOG) 10 units TIDAC SQ Last administered on 08/31/17 08:45 ; Start 08/24/17 at 07:30 Methadone HCl (Dolophine) 10 mg TID PO Last administered on 08/31/17 08:39; Start 08/24/17 at 09:00 Multivitamins/ Calcium (Thera-M Plus) 1 tab DAILY PO Last administered on 08:38; Start 08/24/17 at 09:00 Pantoprazole Sodium (Protonix) 40 mg DAILYAC PO Last administered on 3/10/18at 08:40; Start 08/24/17 at 07:30 Potassium Chloride (Klor-Con) 20 meq QHS PO Last administered on 08/30/17at 20:05 ; Start 08/23/17 at 21:00 Insulin Aspart (NovoLOG) 0-5 UNITS QIDACHS SQ Last administered on 08/31/17at 08 :46; Start 08/24/17 at 07:30 Dextrose 12.5 gm PRN Q15MIN PRN IV SEE COMMENTS; Start 08/23/17 at 21:15 Prednisone (Prednisone) 40 mg DAILY PO Last administered on 08/25/17at 08:21; Start 08/24/17 at 09:00; Stop 08/26/17 at 01:00; Status DC Prednisone (Prednisone) 30 mg DAILY PO Last administered on 08/28/17at 08:44; Start 08/26/17 at 09:00; Stop 08/29/17 at 01:01; Status DC Prednisone (Prednisone) 20 mg DAILY PO Last administered on 08/31/17at 08:40; Start 08/29/17 at 09:00; Stop 09/01/17 at 01:00 Prednisone (Prednisone) 10 mg DAILY PO ; Start 09/01/17 at 09:00; Stop 09/04/17 at 01:00 Cefpodoxime Proxetil (Vantin) 200 mg BID PO Last administered on 08/29/17 08:24 ; Start 08/26/17 at 21:00; Stop 08/29/17 at 11:09; Status DC Nicotine (Nicoderm Cq 14mg) 1 patch 1X ONCE TD Last administered on 08/28/17at 15:39; Start 08/28/17 at 15:45; Stop 08/28/17 at 15:46; Status DC Insulin Aspart (NovoLOG) 25 units 1X ONCE SQ Last administered on 08/28/17 17: 32; Start 08/28/17 at 17:15; Stop 08/28/17 at 17:16; Status DC Insulin Aspart (NovoLOG) 20 units 1X ONCE SQ Last administered on 08/28/17at 20: 31; Start 08/28/17 at 20:00; Stop 08/28/17 at 20:06; Status DC Insulin Detemir (Levemir) 5 units QHS SQ Last administered on 08/30/17at 20:13; Start 08/28/17 at 21:00 Active Scripts Active Reported Duoneb 0.5-3(2.5) Mg/3 Ml (Albuterol/Ipratropium) 3 Ml Ampul.neb 3 Ml NEB QID Amlodipine Besylate 10 Mg Tablet 1 Tab PO DAILY Ceftriaxone (Ceftriaxone Sodium) 1 Gm Vial 1 Gm IVP DAILY NICODERM CQ 14mg (Nicotine) 1 Each Patch.td24 1 Patch TP DAILY Lisinopril 20 Mg Tablet 1 Tab PO DAILY Culturelle (Lactobacillus Rhamnosus Gg) 1 Each Cap.sprink 1 Each PO BID Novolog (Insulin Aspart) 100 Unit/1 Ml Cartridge 10 Unit SQ TIDAC Fenofibrate 54 Mg Tablet 48 Mg PO DAILY Atorvastatin Calcium 80 Mg Tablet 1 Tab PO HS Colace (Docusate Sodium) 100 Mg Capsule 1 Cap PO DAILY LAST DOSE GIVEN: DATE: TODAY TIME: AM NEXT DOSE DUE: DATE: TOMORROW TIME: AM Multi-Vitamin Daily (Multivitamin) 1 Each Tablet 1 Each PO DAILY LAST DOSE GIVEN: DATE: TODAY TIME: AM NEXT DOSE DUE: DATE: TOMORROW TIME: AM Tizanidine Hcl (Tizanidine HCl) 4 Mg Tablet 4 Mg PO BID PRN LAST DOSE GIVEN: DATE: TIME: NEXT DOSE DUE: DATE: TIME: Potassium Chloride 10 Meq Capsule.er 2 Cap PO HS LAST DOSE GIVEN: DATE: YESTER TIME: AT BEDTIME NEXT DOSE DUE: DATE: TODAY TIME: AT BEDTIME Ferrous Sulfate 325 Mg Tablet 1 Tab PO DAILY LAST DOSE GIVEN: DATE: TODAY TIME: AM NEXT DOSE DUE: DATE: TOMORROW TIME: AM Sucralfate 1 Gm Tablet 1 Tab PO TIDAC LAST DOSE GIVEN: DATE: TODAY TIME: BEFORE NEXT DOSE DUE: DATE: TODAY TIME: BEFORE Glucosamine & Chondroitin Cap (Gluc 2KCL/Chondr/Claritza Hy/Hy Ac) 1 Each Capsule 2 Each PO DAILY LAST DOSE GIVEN: DATE: TODAY TIME: AM NEXT DOSE DUE: DATE: TOMORROW TIME: AM Abilify (Aripiprazole) 30 Mg Tablet 1 Tab PO DAILYWBKFT LAST DOSE GIVEN: DATE: TODAY TIME: AM NEXT DOSE DUE: DATE: TOMORROW TIME: AM Seroquel (Quetiapine Fumarate) 50 Mg Tablet 50 Mg PO TID LAST DOSE GIVEN: DATE: TODAY TIME: NEXT DOSE DUE: DATE: TODAY TIME: Methadone Hcl 10 Mg Tablet 1 Tab PO TID LAST DOSE GIVEN: DATE: TODAY TIME: NEXT DOSE DUE: DATE: TODAY TIME: Metformin Hcl 500 Mg Tablet 1 Tab PO TIDWMEALS LAST DOSE GIVEN: DATE: TODAY TIME: WITH NEXT DOSE DUE: DATE: TODAY TIME: WITH Celebrex (Celecoxib) 200 Mg Capsule 200 Mg PO DAILY LAST DOSE GIVEN: DATE: TODAY TIME: AM NEXT DOSE DUE: DATE: TOMORROW TIME: AM Allopurinol 300 Mg Tablet 300 Mg PO DAILY LAST DOSE GIVEN: DATE: TODAY TIME: AM NEXT DOSE DUE: DATE: TOMORROW TIME: AM Diazepam 10 Mg Tablet 10 Mg PO BID LAST DOSE GIVEN: DATE: TODAY TIME: AM NEXT DOSE DUE: DATE: TODAY TIME: PM Omeprazole 20 Mg Capsule.dr 40 Mg PO DAILY LAST DOSE GIVEN: DATE: PROTONIX GIVEN TODAY TIME: AM NEXT DOSE DUE: DATE: TOMORROW TIME: BEFORE BREAKFAST Cymbalta (Duloxetine Hcl) 60 Mg Capsule.dr 60 Mg PO BID LAST DOSE GIVEN: DATE: TODAY TIME: AM NEXT DOSE DUE: DATE: TODAY TIME: PM Potassium Chloride 20 Meq Tab.er.prt 30 Meq PO DAILY LAST DOSE GIVEN: DATE: TODAY TIME: AM NEXT DOSE DUE: DATE: TOMORROW TIME: AM HEBER ASHBY DO Aug 31, 2017 10:50
[2017-08-31] MEDS: POTASSIUM CHLORIDE 20 MEQ TABLET.ER. PO SCH (11:38)
[2017-08-31] MEDS ORDERED: PRED-220 PO (12:06)
[2017-08-31] MEDS ORDERED: INSU100I27 SQ (12:06)
--- NOTE | 2017-08-31 13:50 | NUR ---
Pt discharged to home for self care. Pt left unit in stable condition via ambulation. All pt belongings sent with pt. Discharge instructions given to pt with pt giving verbal understanding.
--- NOTE | 2017-08-31 13:50 | NUR ---
Swing Bed Nursing Note Nursing Problem: Patient [facility] for PT/OT for generalized strengthening following COPD exacerbation. Cognitive/Behavioral: Patient is A/O x4 with occasional forgetfulness. Patient is pleasant and cooperative with all cares. Pain: Patient c/o pain this p.m. Methadone and Tizanidine were administered and the patient reported great pain relief. Respiratory Status: Patient is on 2L O2 at all times. Skin: Patient has a pressure ulcer on his right buttock that is healing. Bowel/Bladder Continence: Patient is continent of bowel and bladder. ADL Functional Status: Patient is independent with all ADLs.
[2017-09-01] MEDS ORDERED: predniSONE 10 MG TABLET PO SCH (09:00)
== END 2017-08-31 13:56 | disposition home or self-care (01) | DRG 189 ==
LOC: LND 18:59 → UNDOADMIN 18:59 → LND 19:38
PROVIDERS: ADMIT Internal Medicine; ATTEND Internal Medicine
DX: J96.21 Acute and chronic respiratory failure with hypoxia (principal); E83.42 Hypomagnesemia; J44.0 Chronic obstructive pulmonary disease with (acute) lower respiratory infection; J44.1 Chronic obstructive pulmonary disease with (acute) exacerbation; J20.9 Acute bronchitis, unspecified; E11.9 Type 2 diabetes mellitus without complications; G47.33 Obstructive sleep apnea (adult) (pediatric); I10 Essential (primary) hypertension; Z88.2 Allergy status to sulfonamides; Z88.8 Allergy status to other drugs, medicaments and biological substances; Z79.899 Other long term (current) drug therapy; Z79.4 Long term (current) use of insulin
CPT/HCPCS: 82947; 94618; 94640; J0696; J1815; J7512; J7620; 97110; 97116; 97530; 97535

== ENCOUNTER → 2018-11-03 | Outpatient (CLI) | payer MEDICARE, BC ==
[~2018-11-03] MED LIST changes: +AMLO10TA8 PO; +ATORVASTATIN CA80 MG PO; +CEFT1VIA13 IVP; +INSU100C4 SQ; +INSU100I27 SQ; +IPRA3AMP29 NEB; +LACT1CAP19 PO; +LISI-334 PO; +METF500T16 PO; -METF500T4 PO; +NICO1PAT25 TP; +PRED-220 PO
--- NOTE | 2018-11-04 08:10 | RAD ---
CHEST PA LATERAL History: Retaining fluid Comparison: 08/20/2017 Findings: Single lateral and 2 PA views of the chest are submitted. There is no significant pleural fluid. There is no pneumothorax. There is likely mild left base atelectasis. Cardiac silhouette is similar. Flattening of the hemidiaphragms may be due to emphysema. Impression: 1. There is no significant pleural fluid. There is mild left base atelectasis. Electronically signed by: Spencer Levy MD (11/04/2018 8:07 AM) [id number]
== END | disposition home or self-care (01) ==
LOC: RAD 16:53
PROVIDERS: ATTEND Family Medicine
DX: J98.11 Atelectasis (principal); R06.02 Shortness of breath
CPT/HCPCS: 71046

== ENCOUNTER → 2018-12-08 | Outpatient (CLI) | payer MEDICARE, BC ==
[~2018-12-08] MED LIST changes: +OMEP20CA10 PO; -OMEP20CA9 PO
[2018-12-08 15:39] LABS: ALBUMIN 3.6 g/dL (3.4-5.0); ALBUMIN/GLOBULIN RATIO 0.9 (1.0-1.7); CALCIUM 9.5 mg/dL (8.5-10.1); CREATININE 1.1 mg/dL (0.7-1.3); GFR 66.8; TOTAL BILIRUBIN 0.2 mg/dL (0.2-1.0); TOTAL PROTEIN 7.6 g/dL (6.4-8.2)
[2018-12-08 15:51] LABS: POTASSIUM 5.1 mmol/L (3.5-5.1)
== END | disposition home or self-care (01) ==
LOC: LAB 14:53
PROVIDERS: ATTEND Internal Medicine Interventional Cardiology
DX: I51.89 Other ill-defined heart diseases (principal); E78.5 Hyperlipidemia, unspecified
CPT/HCPCS: 36415; 80053; 80061

== ENCOUNTER → 2018-12-30 | Outpatient (CLI) | payer MEDICARE, BC ==
[~2018-12-30] MED LIST changes: +ASPI-630 PO; +BIOT5000 PO; +BUME1TAB3 PO; +GLUC1TAB71 PO; +HUM100IN3 SQ; +LINA5TAB4 PO; +MAGN400C PO; +NALO25TA PO; +POTA10TA10 PO; +PUMP160C2 PO
--- NOTE | 2018-12-30 15:40 | RAD ---
CHEST PA LATERAL History: Shortness of breath Comparison: 11/03/2018 two-view chest x-ray exam. Findings: The cardiomediastinal silhouette is normal. Nonspecific mild interstitial thickening of the lung thomas is again identified but slightly increased. Pulmonary vasculature is normal. No focal consolidation. No pleural effusion or pneumothorax is seen. There is no acute bone abnormality. IMPRESSION: Slight nonspecific increase in mild interstitial thickening of the lung thomas. Electronically signed by: Jasen Hayes MD (12/30/2018 3:37 PM) [facility]
== END | disposition home or self-care (01) ==
LOC: DXRAD 10:42
PROVIDERS: ATTEND Family Medicine
DX: J98.4 Other disorders of lung (principal)
CPT/HCPCS: 71046

== ENCOUNTER 2019-01-01 17:19 | Inpatient (IN) | payer MEDICARE, BC ==
[~2019-01-01] VITALS: Ht 170.2 cm; Wt 95.8 kg
[~2019-01-01 17:19] MED LIST changes: -ASPI-630 PO; -BIOT5000 PO; -BUME1TAB3 PO; -GLUC1TAB71 PO; -HUM100IN3 SQ; -LINA5TAB4 PO; -MAGN400C PO; -NALO25TA PO; -POTA10TA10 PO; -PUMP160C2 PO
[2019-01-01] MEDS ORDERED: IV RINGERS SOLUTION,LACTATED 1,000 ML IV SCH (17:33)
--- NOTE | 2019-01-01 17:33 | ED.ADGEN ---
Past History Past Medical History: Cancer, COPD, Diabetes, Fibromyalgia, High Cholesterol, Hypertension, TIA, Other Past Surgical History: Other Smoking: Greater than 1 pack/day, Quit Greater Than 1 Year Alcohol Use: None Drug Use: None Adult General Chief Complaint Chief Complaint ".. I ve been getting more short of breath... especially the last two days.. I just can't seem to get my breath.. this is worse than my episode last year...." HPI HPI Patient is a 68 year old male who presents with above hx and complaints increased dyspnea. The patient has known significant oxygen dependent COPD at 2-3 L. Patient denies any travel. Patient denies any specific ill contacts. Patient has not been on steroids for approximately a year. Patient states his cough has been nonproductive but has noted marked dyspnea. Has increased dyspnea and fatigue with walking across room or even 1 flight of stairs. Patient follows with Dr. Minor. Patient has significant history of fibromyalgia, diabetes, COPD, CVA, TIAs, skin cancer. . Patient quit smoking approximately 1 year ago. Has approximately 100 pack year tobacco history. No recent contacts with ill individuals. No travel. No history immunosuppression. Has been taking home meds as directed both for his hypertension, diabetes and COPD. states his current exacerbation is worse than it was a year ago. Review of Systems Review of Systems Constitutional: Denies fever or chills [] Eyes: Denies change in visual acuity, redness, or eye pain [] HENT: Denies nasal congestion or sore throat [] Respiratory: Complains of cough and shortness of breath [] Cardiovascular: No additional information not addressed in HPI [] GI: Denies abdominal pain, nausea, vomiting, bloody stools or diarrhea [] : Denies dysuria or hematuria [] Musculoskeletal: Denies back pain or joint pain []complaints of fatigue Integument: Denies rash or skin lesions [] Neurologic: Denies headache, focal weakness or sensory changes [] Endocrine: Denies polyuria or polydipsia [] All other systems were reviewed and found to be within normal limits, except as documented in this note. Family History Family History Non-contributory Current Medications Current Medications Current Medications Medications (Trade) Dose Ordered Sig/Claudia Start Time Stop Time Status Last Admin Dose Admin Albuterol/ Ipratropium (Duoneb) 3 ml 1X ONCE 01/01/19 17:45 01/01/19 17:46 DC 01/01/19 18:13 3 ML Aspirin (Children'S Aspirin) 324 mg 1X ONCE 01/01/19 17:45 01/01/19 17:46 DC 01/01/19 18:12 324 MG Azithromycin (Zithromax) 500 mg 1X ONCE 01/01/19 17:45 01/01/19 17:46 DC 01/01/19 18:13 500 MG Lactated Ringer's 1,000 ml @ 100 mls/hr Q10H 01/01/19 17:33 01/02/19 03:32 01/01/19 17:00 100 MLS/HR Methylprednisolone Sodium Succinate (SOLU-Medrol 125MG VIAL) 125 mg 1X ONCE 01/01/19 17:45 01/01/19 17:46 DC 01/01/19 18:13 125 MG Allergies Allergies Allergies Coded Allergies Type Severity Reaction Last Updated Verified Sulfa (Sulfonamide Antibiotics) Allergy Intermediate 08/20/17 No liraglutide Allergy Intermediate 08/20/17 No quinine Allergy Intermediate 08/20/17 Yes Physical Exam Physical Exam Constitutional: , no acute distress, non-toxic appearance. [] HENT: Normocephalic, recent scar from removal of cancer on forehead, , bilateral external ears normal, oropharynx moist, no oral exudates, nose normal. [] Eyes: PERRLA, EOMI, conjunctiva normal, no discharge. glasses. Neck: Normal range of motion, no tenderness, supple, no stridor. [] Cardiovascular: Tachycardia Heart rate regular rhythm, no murmur []PMI to Lt. Lungs & Thorax: Bilateral breath sounds equal at apexes scattered wheezing throughout auscultation [] Abdomen: Bowel sounds normal, soft, no tenderness, no masses, no pulsatile masses. Obese Skin: Warm, reticulocyte, no erythema, no rash. [] Back: No tenderness, no CVA tenderness. [] Extremities: No tenderness, no cyanosis, no clubbing, ROM intact, ankle edema. [] Arthritic changes Neurologic: Alert and oriented X 3, normal motor function, normal sensory function, no focal deficits noted. [] Psychologic: Affect anxious, judgement normal, mood normal. [] Current Patient Data Vital Signs Vital Signs Date Time Temp Pulse Resp B/P (MAP) Pulse Ox O2 Delivery O2 Flow Rate FiO2 01/01/19 18:24 97.7 104 22 95 Nasal Cannula 3.0 Lab Results Laboratory Tests Test 01/01/19 17:52 White Blood Count 8.9 x10^3/uL (4.0-11.0) Red Blood Count 4.37 x10^6/uL (4.30-5.70) Hemoglobin 12.5 g/dL (13.0-17.5) L Hematocrit 38.6 % (39.0-53.0) L Mean Corpuscular Volume 88 fL (79-100) Mean Corpuscular Hemoglobin 29 pg (25-35) Mean Corpuscular Hemoglobin Concent 32 g/dL (31-37) Red Cell Distribution Width 15.7 % (11.5-14.5) H Platelet Count 210 x10^3/uL (140-400) Neutrophils (%) (Auto) 69 % (31-73) Lymphocytes (%) (Auto) 22 % (24-48) L Monocytes (%) (Auto) 6 % (0-9) Eosinophils (%) (Auto) 2 % (0-3) Basophils (%) (Auto) 1 % (0-3) Neutrophils # (Auto) 6.2 x10^3uL (1.8-7.7) Lymphocytes # (Auto) 2.0 x10^3/uL (1.0-4.8) Monocytes # (Auto) 0.5 x10^3/uL (0.0-1.1) Eosinophils # (Auto) 0.2 x10^3/uL (0.0-0.7) Basophils # (Auto) 0.1 x10^3/uL (0.0-0.2) Segmented Neutrophils % 64 % (35-66) Lymphocytes % 27 % (24-48) Monocytes % 7 % (0-10) Basophils % 2 % (0-3) Platelet Estimate Adequate (ADEQUATE) Large Platelets Occ Polychromasia Slight Anisocytosis Slight Prothrombin Time 10.2 SEC (9.4-11.4) Prothrombin Time INR 1.0 (0.9-1.1) PTT 24 SEC (23-33) D-Dimer (Marquita) 0.40 mg/L (0.00-0.50) Sodium Level 140 mmol/L (136-145) Potassium Level 4.2 mmol/L (3.5-5.1) Chloride Level 102 mmol/L (98-107) Carbon Dioxide Level 27 mmol/L (21-32) Anion Gap 11 (6-14) Blood Urea Nitrogen 34 mg/dL (8-26) H Creatinine 1.2 mg/dL (0.7-1.3) Estimated GFR (Cockcroft-Gault) 60.4 Glucose Level 137 mg/dL (70-99) H Calcium Level 9.6 mg/dL (8.5-10.1) Magnesium Level 1.5 mg/dL (1.8-2.4) L Total Bilirubin 0.2 mg/dL (0.2-1.0) Direct Bilirubin 0.1 mg/dL (0.0-0.2) Aspartate Amino Transferase (AST) 18 U/L (15-37) Alanine Aminotransferase (ALT) 32 U/L (16-63) Alkaline Phosphatase 70 U/L (46-116) Creatine Kinase 95 U/L (39-308) Troponin I Quantitative 0.023 ng/mL (0-0.055) RJ-Lqr-N-Type Natriuretic Peptide 239 pg/mL (0-124) H Total Protein 8.0 g/dL (6.4-8.2) Albumin 3.7 g/dL (3.4-5.0) Lipase 67 U/L (73-393) L EKG EKG My interpretation EKG shows a sinus rhythm at 97 bpm. Left axis. Some nonspe cific T-wave changes. No findings of acute STEMI with contralateral changes. Does have wavering baseline due to respiratory distress[] Radiology/Procedures Radiology/Procedures [][address] [address] IMAGING REPORT Signed PATIENT: JANINE CALIX ACCOUNT: [id number] : 1950 LOCATION: ER AGE: 68 SEX: M EXAM STATUS: REG ER ORD. PHYSICIAN: JJ PIERRE MD REASON: dyspnea PROCEDURE: CHEST PA & LATERAL PA and lateral chest. HISTORY: Dyspnea PA and lateral views were taken of the chest. There is a possible nodule in the right lung with little change compared to old studies. No infiltrates are noted. Heart is normal in size. There is no pleural effusion. IMPRESSION: 1. No acute infiltrates. Electronically signed by: Paulino Reynolds MD (01/01/2019 5:55 PM) [facility] DICTATED AND SIGNED BY: PAULINO REYNOLDS MD DATE: 01/01/19 9229 CC: MONET MINOR MD; JJ PIERRE MD ~ Course & Med Decision Making Course & Med Decision Making Pertinent Labs and Imaging studies reviewed. (See chart for details) Admitted to Dr. Le for further evaluation and treatment. Plan ABG after several treatment. [] Final Impression Final Impression 1. Dyspnea[] 2. Acute on chronic respiratory failure-hypoxia 3. COPD exacerbation 4. Diabetes 5. Hypo-magnesium 1.5 6. Anemia 12.5 Dragon Disclaimer Dragon Disclaimer This electronic medical record was generated, in whole or in part, using a voice recognition dictation system. Discharge Summary Brief Hospital Course Allergies Allergies Coded Allergies Type Severity Reaction Last Updated Verified Sulfa (Sulfonamide Antibiotics) Allergy Intermediate 08/20/17 No liraglutide Allergy Intermediate 08/20/17 No quinine Allergy Intermediate 08/20/17 Yes Vital Signs Vital Signs Date Time Temp Pulse Resp B/P (MAP) Pulse Ox O2 Delivery O2 Flow Rate FiO2 01/01/19 18:24 97.7 104 22 95 Nasal Cannula 3.0 Lab Results Laboratory Tests Test 01/01/19 17:52 White Blood Count 8.9 x10^3/uL (4.0-11.0) Red Blood Count 4.37 x10^6/uL (4.30-5.70) Hemoglobin 12.5 g/dL (13.0-17.5) Hematocrit 38.6 % (39.0-53.0) Mean Corpuscular Volume 88 fL (79-100) Mean Corpuscular Hemoglobin 29 pg (25-35) Mean Corpuscular Hemoglobin Concent 32 g/dL (31-37) Red Cell Distribution Width 15.7 % (11.5-14.5) Platelet Count 210 x10^3/uL (140-400) Neutrophils (%) (Auto) 69 % (31-73) Lymphocytes (%) (Auto) 22 % (24-48) Monocytes (%) (Auto) 6 % (0-9) Eosinophils (%) (Auto) 2 % (0-3) Basophils (%) (Auto) 1 % (0-3) Neutrophils # (Auto) 6.2 x10^3uL (1.8-7.7) Lymphocytes # (Auto) 2.0 x10^3/uL (1.0-4.8) Monocytes # (Auto) 0.5 x10^3/uL (0.0-1.1) Eosinophils # (Auto) 0.2 x10^3/uL (0.0-0.7) Basophils # (Auto) 0.1 x10^3/uL (0.0-0.2) Segmented Neutrophils % 64 % (35-66) Lymphocytes % 27 % (24-48) Monocytes % 7 % (0-10) Basophils % 2 % (0-3) Platelet Estimate Adequate (ADEQUATE) Large Platelets Occ Polychromasia Slight Anisocytosis Slight Prothrombin Time 10.2 SEC (9.4-11.4) Prothromb Time International Ratio 1.0 (0.9-1.1) Activated Partial Thromboplast Time 24 SEC (23-33) D-Dimer (Marquita) 0.40 mg/L (0.00-0.50) Sodium Level 140 mmol/L (136-145) Potassium Level 4.2 mmol/L (3.5-5.1) Chloride Level 102 mmol/L (98-107) Carbon Dioxide Level 27 mmol/L (21-32) Anion Gap 11 (6-14) Blood Urea Nitrogen 34 mg/dL (8-26) Creatinine 1.2 mg/dL (0.7-1.3) Estimated GFR (Cockcroft-Gault) 60.4 Glucose Level 137 mg/dL (70-99) Calcium Level 9.6 mg/dL (8.5-10.1) Magnesium Level 1.5 mg/dL (1.8-2.4) Total Bilirubin 0.2 mg/dL (0.2-1.0) Direct Bilirubin 0.1 mg/dL (0.0-0.2) Aspartate Amino Transf (AST/SGOT) 18 U/L (15-37) Alanine Aminotransferase (ALT/SGPT) 32 U/L (16-63) Alkaline Phosphatase 70 U/L (46-116) Creatine Kinase 95 U/L (39-308) Troponin I Quantitative 0.023 ng/mL (0-0.055) IS-Get-Z-Type Natriuretic Peptide 239 pg/mL (0-124) Total Protein 8.0 g/dL (6.4-8.2) Albumin 3.7 g/dL (3.4-5.0) Lipase 67 U/L (73-393) Brief Hospital Course Mr. Calix is a 68 old male who presented with COPD exacerbation. Admitted Dr. Le Discharge Information Condition at Discharge: Improved Dischare Medications Current Medications Aspirin (Children'S Aspirin) 324 mg 1X ONCE PO Last administered on 01/01/19at 18:12; Admin Dose 324 MG; Start 01/01/19 at 17:45; Stop 01/01/19 at 17:46; Status DC Lactated Ringer's 1,000 ml @ 100 mls/hr Q10H IV Last administered on 01/01/19at 17:00; Admin Dose 100 MLS/HR; Start 01/01/19 at 17:33; Stop 01/02/19 at 03:32 Methylprednisolone Sodium Succinate (SOLU-Medrol 125MG VIAL) 125 mg 1X ONCE IV Last administered on 01/01/19at 18:13; Admin Dose 125 MG; Start 01/01/19 at 17:45; Stop 01/01/19 at 17:46; Status DC Albuterol/ Ipratropium (Duoneb) 3 ml 1X ONCE NEB Last administered on 01/01/19at 17:50; Admin Dose 3 ML; Start 01/01/19 at 17:45; Stop 01/01/19 at 17:46; Status DC Azithromycin (Zithromax) 500 mg 1X ONCE PO Last administered on 01/01/19at 18:13; Admin Dose 500 MG; Start 01/01/19 at 17:45; Stop 01/01/19 at 17:46; Status DC Albuterol/ Ipratropium (Duoneb) 3 ml 1X ONCE NEB Last administered on 01/01/19at 18:13; Admin Dose 3 ML; Start 01/01/19 at 17:45; Stop 01/01/19 at 17:46; Status DC Active Scripts Active Reported Movantik (Naloxegol Oxalate) 25 Mg Tablet 25 Mg PO DAILY Osteo Bi-Flex Caplet (Glucosamine/D3/Boswellia Fatuma) 1 Each Tablet 1 Each PO DAILY Saw [place] 160 Mg Softgel (Pumpkin Seed Oil/Saw [place]) 160 Mg Capsule 160 Mg PO DAILY Magnesium (Magnesium Oxide) 400 Mg Capsule 1 Cap PO DAILY Bumetanide 1 Mg Tablet 1 Tab PO DAILY Aspirin 81 Mg Tab.chew 81 Mg PO DAILY Biotin 5,000 Mcg Tab.rapdis 5,000 Mcg PO TID Potassium Chloride 10 Meq Tablet.er 10 Meq PO DAILY Tradjenta (Linagliptin) 5 Mg Tablet 1 Tab PO DAILY Crestor (Rosuvastatin Calcium) 20 Mg Tablet 20 Mg PO HS Humulin 70/30 Kwikpen (Hum Insulin Nph/Reg Insulin Hm) 100 Unit/1 Ml Insuln.pen 50 Unit SQ DAILYWSUP Humulin 70/30 Kwikpen (Hum Insulin Nph/Reg Insulin Hm) 100 Unit/1 Ml Insuln.pen 20 Unit SQ DAILYWLUN Humulin 70/30 Kwikpen (Hum Insulin Nph/Reg Insulin Hm) 100 Unit/1 Ml Insuln.pen 40 Unit SQ DAILYWBKFT Duoneb 0.5-3(2.5) Mg/3 Ml (Albuterol/Ipratropium) 3 Ml Ampul.neb 3 Ml NEB QID Amlodipine Besylate 10 Mg Tablet 1 Tab PO DAILY Lisinopril 20 Mg Tablet 1 Tab PO DAILY Fenofibrate 54 Mg Tablet 48 Mg PO DAILY Multi-Vitamin Daily (Multivitamin) 1 Each Tablet 1 Each PO DAILY LAST DOSE GIVEN: DATE: TODAY TIME: AM NEXT DOSE DUE: DATE: TOMORROW TIME: AM Tizanidine Hcl (Tizanidine HCl) 4 Mg Tablet 4 Mg PO BID PRN LAST DOSE GIVEN: DATE: TIME: NEXT DOSE DUE: DATE: TIME: Abilify (Aripiprazole) 30 Mg Tablet 1 Tab PO DAILYWBKFT LAST DOSE GIVEN: DATE: TODAY TIME: AM NEXT DOSE DUE: DATE: TOMORROW TIME: AM Seroquel (Quetiapine Fumarate) 50 Mg Tablet 50 Mg PO TID LAST DOSE GIVEN: DATE: TODAY TIME: NEXT DOSE DUE: DATE: TODAY TIME: Methadone Hcl 10 Mg Tablet 1 Tab PO BID LAST DOSE GIVEN: DATE: TODAY TIME: NEXT DOSE DUE: DATE: TODAY TIME: Metformin Hcl 500 Mg Tablet 1 Tab PO TIDWMEALS LAST DOSE GIVEN: DATE: TODAY TIME: WITH NEXT DOSE DUE: DATE: TODAY TIME: WITH Celebrex (Celecoxib) 200 Mg Capsule 200 Mg PO DAILY LAST DOSE GIVEN: DATE: TODAY TIME: AM NEXT DOSE DUE: DATE: TOMORROW TIME: AM Allopurinol 300 Mg Tablet 300 Mg PO DAILY LAST DOSE GIVEN: DATE: TODAY TIME: AM NEXT DOSE DUE: DATE: TOMORROW TIME: AM Omeprazole 20 Mg Capsule.dr 40 Mg PO DAILY LAST DOSE GIVEN: DATE: PROTONIX GIVEN TODAY TIME: AM NEXT DOSE DUE: DATE: TOMORROW TIME: BEFORE BREAKFAST Cymbalta (Duloxetine Hcl) 60 Mg Capsule.dr 60 Mg PO BID LAST DOSE GIVEN: DATE: TODAY TIME: AM NEXT DOSE DUE: DATE: TODAY TIME: PM Dragon Disclaimer This chart was dictated in whole or in part using Voice Recognition software in a busy, high-work load, and often noisy Emergency Department environment. It may contain unintended and wholly unrecognized errors or omissions. JJ PIERRE MD Jan 01, 2019 17:33
[2019-01-01] MEDS ORDERED: ASPIRIN 81 MG TAB.CHEW PO ONE (17:45)
[2019-01-01] MEDS ORDERED: methylPREDNISolone SOD SUCC PF 125 MG/2 ML VIAL. IV ONE (17:45)
[2019-01-01] MEDS ORDERED: IPRATRPIUM/ALBUTEROL 0.5/2.5MG 3 ML NEBU. NEB ONE ×2 (17:45)
[2019-01-01] MEDS ORDERED: AZITHROMYCIN 250 MG TABLET. PO ONE (17:45)
--- NOTE | 2019-01-01 17:58 | RAD ---
PA and lateral chest. HISTORY: Dyspnea PA and lateral views were taken of the chest. There is a possible nodule in the right lung with little change compared to old studies. No infiltrates are noted. Heart is normal in size. There is no pleural effusion. IMPRESSION: 1. No acute infiltrates. Electronically signed by: Paulino Reynolds MD (01/01/2019 5:55 PM) [facility]
[2019-01-01 18:13] LABS: BASO # 0.1 x10^3/uL (0.0-0.2); BASO % 1 % (0-3); EOS # 0.2 x10^3/uL (0.0-0.7); EOS % 2 % (0-3); HEMATOCRIT 38.6 % (39.0-53.0); HEMOGLOBIN 12.5 g/dL (13.0-17.5); LYMPH % 22 % (24-48); MEAN CORPUSCULAR HEMOGLOBIN 29 pg (25-35); MEAN CORPUSCULAR HGB CONC 32 g/dL (31-37); MEAN CORPUSCULAR VOLUME 88 fL (79-100); MONO # 0.5 x10^3/uL (0.0-1.1); MONO % 6 % (0-9); NEUT # 6.2 x10^3uL (1.8-7.7); NEUT % 69 % (31-73); PLATELET COUNT 210 x10^3/uL (140-400); RED BLOOD COUNT 4.37 x10^6/uL (4.30-5.70); RED CELL DISTRIBUTION WIDTH 15.7 % (11.5-14.5); WHITE BLOOD COUNT 8.9 x10^3/uL (4.0-11.0)
[2019-01-01 18:31] LABS: ALBUMIN 3.7 g/dL (3.4-5.0); CALCIUM 9.6 mg/dL (8.5-10.1); CREATININE 1.2 mg/dL (0.7-1.3); DIRECT BILIRUBIN 0.1 mg/dL (0.0-0.2); GFR 60.4; MAGNESIUM 1.5 mg/dL (1.8-2.4); POTASSIUM 4.2 mmol/L (3.5-5.1); TOTAL BILIRUBIN 0.2 mg/dL (0.2-1.0)
[2019-01-01] MEDS ORDERED: ONDANSETRON PF 4 MG/2 ML VIAL. IV PRN (19:00)
[2019-01-01] MEDS ORDERED: ACETAMINOPHEN 325 MG TABLET PO PRN (19:00)
[2019-01-01] MEDS ORDERED: IV NORMAL SALINE 50ML 50 ML ONE (19:05)
[2019-01-01] MEDS ORDERED: cefTRIAXone SODIUM 1 GM VIAL ONE (19:05)
[2019-01-01] MEDS ORDERED: MAGNESIUM SULFATE 2GM 50 ML IV ONE ×2 (19:06→19:15)
[2019-01-01 19:45] VITALS: BP 149/84
[2019-01-01] MEDS: IV RINGERS SOLUTION,LACTATED 1,000 ML IV SCH (21:00)
[2019-01-01] MEDS: IPRATRPIUM/ALBUTEROL 0.5/2.5MG 3 ML NEBU. NEB SCH (21:30)
[2019-01-01 21:34] LABS: BGAS PH 7.39 (7.35-7.46)
[2019-01-01] MEDS ORDERED: HUM100IN3 SQ ×3 (22:05)
[2019-01-01] MEDS ORDERED: CRESTOR20 MG PO (22:16)
[2019-01-01] MEDS: INSULIN NPH/REG INSULIN 70/30 300 UNITS/3 ML INSULN.PEN. SQ SCH (22:23)
[2019-01-01] MEDS ORDERED: LINA5TAB4 PO (22:58)
[2019-01-01] MEDS ORDERED: POTA10TA10 PO (23:00)
[2019-01-01] MEDS ORDERED: BUME1TAB3 PO (23:07)
[2019-01-01] MEDS ORDERED: ASPI-630 PO (23:07)
[2019-01-01] MEDS ORDERED: BIOT5000 PO (23:07)
[2019-01-01 23:08] VITALS: BP 162/88
[2019-01-01] MEDS ORDERED: PUMP160C2 PO (23:17)
[2019-01-01] MEDS ORDERED: GLUC1TAB71 PO (23:17)
[2019-01-01] MEDS ORDERED: MAGN400C PO (23:17)
[2019-01-01] MEDS ORDERED: NALO25TA PO (23:17)
[2019-01-01] MEDS: ATORVASTATIN CALCIUM 20 MG TABLET PO SCH (23:20)
[2019-01-01] MEDS: QUEtiapine 50 MG TABLET. PO SCH (23:20)
[2019-01-01 23:35] LABS: % BASOS 2 % (0-3); % LYMPHS 27 % (24-48); % MONOS 7 % (0-10); % SEGS 64 % (35-66); ANISOCYTOSIS SLIGHT; PLT ESTIMATE ADEQUATE (ADEQUATE); POLYCHROMASIA SLIGHT
[2019-01-02 05:14] VITALS: BP 148/91
[2019-01-02] MEDS: IPRATRPIUM/ALBUTEROL 0.5/2.5MG 3 ML NEBU. NEB SCH ×4 (05:56→19:41)
[2019-01-02 06:05] LABS: BASO % 0 % (0-3); EOS % 0 % (0-3); HEMATOCRIT 36.6 % (39.0-53.0); HEMOGLOBIN 11.7 g/dL (13.0-17.5); LYMPH # 0.9 x10^3/uL (1.0-4.8); LYMPH % 8 % (24-48); MEAN CORPUSCULAR HEMOGLOBIN 28 pg (25-35); MEAN CORPUSCULAR HGB CONC 32 g/dL (31-37); MEAN CORPUSCULAR VOLUME 89 fL (79-100); MONO # 0.2 x10^3/uL (0.0-1.1); MONO % 2 % (0-9); NEUT # 9.8 x10^3uL (1.8-7.7); NEUT % 90 % (31-73); PLATELET COUNT 202 x10^3/uL (140-400); RED BLOOD COUNT 4.12 x10^6/uL (4.30-5.70); RED CELL DISTRIBUTION WIDTH 15.8 % (11.5-14.5); WHITE BLOOD COUNT 10.8 x10^3/uL (4.0-11.0)
[2019-01-02 06:13] LABS: CALCIUM 9.6 mg/dL (8.5-10.1); GFR 74.5; POTASSIUM 4.4 mmol/L (3.5-5.1)
[2019-01-02] MEDS: ASPIRIN 81 MG TAB.CHEW PO SCH (08:08)
[2019-01-02] MEDS: QUEtiapine 50 MG TABLET. PO SCH ×3 (08:08→21:11)
[2019-01-02] MEDS: AZITHROMYCIN 250 MG TABLET. PO SCH (08:08)
[2019-01-02] MEDS: LACTOBACILLUS RHAMNOSUS GG 1 CAPSULE. PO SCH ×2 (08:08→21:11)
[2019-01-02] MEDS: INSULIN NPH/REG INSULIN 70/30 300 UNITS/3 ML INSULN.PEN. SQ SCH ×3 (08:14→17:09)
[2019-01-02] MEDS ORDERED: methylPREDNISolone SOD SUCC PF 125 MG/2 ML VIAL. IV SCH (09:00)
[2019-01-02] MEDS: IV RINGERS SOLUTION,LACTATED 1,000 ML IV SCH (09:00)
[2019-01-02 11:11] VITALS: BP 162/81
--- NOTE | 2019-01-02 11:40 | HP ---
ADMIT DATE: 01/02/2019 ATTENDING PHYSICIAN: Dr. Le. CHIEF COMPLAINT: Shortness of breath. HISTORY OF PRESENT ILLNESS: The patient is a pleasant 68-year-old gentleman with end-stage oxygen dependent COPD. He was admitted to the ED with increasing shortness of breath over the last 2 days. He is very tight. He has supplemental oxygen, which she is supposed to wear at all time. He already has a Trilogy home BiPAP machine. He has a [place] [employer]. He will take the dog out to walk. The weather has been very hot and the humidity is bothering him and he does not wear his supplemental oxygen. Therefore, this double combination of exacerbating event is causing shortness of breath. He has minimal productive cough, which is baseline for him. Admission chest x-ray shows very slight blunting of the costophrenic angles. Lung thomas are clear. There are no acute infiltrates identified. He has responded well to nebulizer therapy and Solu-Medrol. He is also diabetic. PAST MEDICAL HISTORY: Significant for end stage COPD, oxygen dependency, home BiPAP use, type 2 diabetes, hypertension, TIAs and fibromyalgia. SOCIAL HISTORY: The patient quit smoking up to a year ago. He is a nondrinker. He is retired and disabled. FAMILY HISTORY: Father of stroke and complications of old advanced age at age 76. Mother of stroke and heart disease, also in her mid 70s. CURRENT MEDICATIONS: Reviewed. He has been on insulin 70/30 20 units daily, lactobacillus, aspirin, Solu-Medrol and Zithromax were started in the ED, Lipitor, Seroquel, albuterol, magnesium and p.r.n. ondansetron. ALLERGIES: SULFA DRUGS AND QUININE. REVIEW OF SYSTEMS: Significant chronic oxygen therapy. He already has a Trilogy BiPAP machine, but he lost the piece of the nasal cannula. He has not had it for the last 2 nights. He was a smoker up until several years ago. His vision is quite bad. His does all the driving. I asked him if he had macular degeneration. He could not tell me a diagnosis. He has type 2 diabetes. He is obese and sedentary. He has hypertension. No nausea or vomiting. He has chronic shortness of breath with limited activities. All other systems reviewed and certainly being negative. PHYSICAL EXAMINATION: GENERAL: When I saw him, this is a pleasant elderly gentleman. INITIAL VITAL SIGNS: Showed a blood pressure of 148/91, pulse is 79 and regular. He was afebrile. HEENT: Head is without trauma. Pupils are reactive. Sclerae nonicteric. Oropharynx is clear. NECK: Supple. No bruits identified. LUNGS: Diffuse wheezing bilaterally. CARDIOVASCULAR: Showed distant heart tones. No obvious gallops. Peripheral pulses are palpable and full. ABDOMEN: Soft, obese, protuberant. No organomegaly. Bowel sounds are hypoactive. EXTREMITIES: Show trace edema. NEUROLOGIC: Focally intact. Speech is fluent. SKIN: No lymphangitis or lymphadenopathy. PERTINENT LABORATORY STUDIES: On admission, his hemoglobin was 12.5 g/dL with white count of 8900. Chemistry panel showed stable BUN, creatinine, electrolytes, creatinine is 1.0 mg/dL. Chest x-ray as noted some blunting of the costophrenic angles, very mild in nature. No decompensation. No acute infiltrates identified. IMPRESSION: 1. This 68-year-old gentleman has an exacerbation of chronic obstructive pulmonary disease. 2. Acute on chronic respiratory failure. 3. Noncompliance of oxygen. 4. Type 2 diabetes. 5. Essential hypertension. 6. Decreased visual acuity. PLAN: 1. Admit to the be inpatient. 2. Nebulizer therapy around the clock. 3. Steroids as ordered with quick tapering dose. 4. Continue antibiotics as ordered. 5. We will try to get him the parts for his BiPAP machine. 6. Continue supplemental oxygen. 7. Diabetic diet as tolerated. BEN HERNADEZ MD DR: SHIVANI/bell JOB#: [id number] / [id number] JUAN MANUEL Golden MD
[2019-01-02] MEDS ORDERED: IPRATRPIUM/ALBUTEROL 0.5/2.5MG 3 ML NEBU. NEB SCH (13:00)
[2019-01-02] MEDS ORDERED: DULoxetine HCL 60 MG CAPSULE.DR PO SCH (14:00)
[2019-01-02] MEDS ORDERED: METHADONE 5 MG TABLET. PO SCH (14:00)
[2019-01-02] MEDS: LINAGLIPTIN 5 MG TABLET PO SCH (14:09)
[2019-01-02] MEDS: amLODIPine BESYLATE 10 MG TABLET PO SCH (14:09)
[2019-01-02] MEDS: BUMETANIDE 1 MG TABLET PO SCH (14:09)
[2019-01-02] MEDS: POTASSIUM CHLORIDE 10 MEQ TABLET.ER. PO SCH (14:09)
[2019-01-02] MEDS: ALLOPURINOL 300 MG TABLET. PO SCH (14:09)
[2019-01-02] MEDS: PANTOPRAZOLE 40 MG TABLET. PO SCH (14:10)
[2019-01-02] MEDS: LISINOPRIL 20 MG TABLET PO SCH (14:11)
[2019-01-02] MEDS ORDERED: tiZANidine 4 MG TABLET. PO PRN (14:45)
[2019-01-02] MEDS: NALOXEGOL OXALATE 25 MG TABLET. PO SCH (14:59)
[2019-01-02] MEDS: ARIPiprazole 15 MG TABLET PO SCH (15:00)
[2019-01-02 15:08] VITALS: BP 135/81
[2019-01-02] MEDS: metFORMIN 500 MG TABLET PO SCH (16:58)
[2019-01-02 19:36] VITALS: BP 111/70
[2019-01-02] MEDS: ATORVASTATIN CALCIUM 20 MG TABLET PO SCH (21:11)
[2019-01-02 23:31] VITALS: BP 104/68
[2019-01-03 00:10] LABS: HEMOGLOBIN A1C 6.8 % (4.8-5.6)
[2019-01-03] MEDS: IPRATRPIUM/ALBUTEROL 0.5/2.5MG 3 ML NEBU. NEB SCH ×4 (04:56→19:59)
[2019-01-03 06:13] VITALS: BP 130/76
[2019-01-03] MEDS: METHADONE 5 MG TABLET. PO SCH ×2 (08:56→12:28)
[2019-01-03] MEDS: ALLOPURINOL 300 MG TABLET. PO SCH (08:56)
[2019-01-03] MEDS: amLODIPine BESYLATE 10 MG TABLET PO SCH (08:56)
[2019-01-03] MEDS: QUEtiapine 50 MG TABLET. PO SCH ×3 (08:56→20:55)
[2019-01-03] MEDS: metFORMIN 500 MG TABLET PO SCH ×3 (08:56→16:16)
[2019-01-03] MEDS: AZITHROMYCIN 250 MG TABLET. PO SCH (08:56)
[2019-01-03] MEDS: POTASSIUM CHLORIDE 10 MEQ TABLET.ER. PO SCH (08:57)
[2019-01-03] MEDS: PANTOPRAZOLE 40 MG TABLET. PO SCH (08:57)
[2019-01-03] MEDS: LINAGLIPTIN 5 MG TABLET PO SCH (08:57)
[2019-01-03] MEDS: DULoxetine HCL 60 MG CAPSULE.DR PO SCH ×2 (08:57→12:28)
[2019-01-03] MEDS: BUMETANIDE 1 MG TABLET PO SCH (08:57)
[2019-01-03] MEDS: LACTOBACILLUS RHAMNOSUS GG 1 CAPSULE. PO SCH ×2 (08:57→20:55)
[2019-01-03] MEDS: LISINOPRIL 20 MG TABLET PO SCH (08:58)
[2019-01-03] MEDS: NALOXEGOL OXALATE 25 MG TABLET. PO SCH (08:58)
[2019-01-03] MEDS: ASPIRIN 81 MG TAB.CHEW PO SCH (08:58)
[2019-01-03] MEDS: ARIPiprazole 15 MG TABLET PO SCH (08:58)
[2019-01-03] MEDS: methylPREDNISolone SOD SUCC PF 40 MG/ML VIAL. IV SCH (08:58)
[2019-01-03] MEDS: INSULIN NPH/REG INSULIN 70/30 300 UNITS/3 ML INSULN.PEN. SQ SCH ×3 (09:00→16:24)
[2019-01-03] MEDS ORDERED: NON FORMULARY ITEM (Aspirin 81 MG) PO SCH (09:00)
[2019-01-03 11:52] VITALS: BP 118/54
--- NOTE | 2019-01-03 14:04 | PN ---
DATE: 01/03/2019 ATTENDING PHYSICIAN: Dr. Hernadez. CHIEF COMPLAINT: Shortness of breath. SUBJECTIVE: The patient is better. He states he is about the same, but there is no obvious distress. He is not wearing his supplemental oxygen now. He is up and ambulating to the bathroom independently. There is no obvious respiratory distress. PHYSICAL EXAMINATION: VITAL SIGNS: His blood pressure today is 130/76 mmHg, pulse is 71 and irregular. He is afebrile. HEENT: Head is without trauma. Pupils are reactive. Sclerae are nonicteric. LUNGS: Otherwise clear with good breath sounds. CARDIOVASCULAR: Showed regular heart tones. ABDOMEN: Obese. EXTREMITIES: Showed no edema. NEUROLOGIC: Focally intact. Speech is fluent. PERTINENT LABORATORY AND X-RAY STUDIES: Yesterday, his hemoglobin was 11.7 g/dL with white count of 10,800. Nonfasting blood sugars improved, most recent one this morning is down from 300-136 mg/dL. ASSESSMENT: 1. This 68-year-old gentleman has acute on chronic respiratory failure. 2. Exacerbation of chronic obstructive pulmonary disease. 3. Noncompliance of oxygen use. 4. Type 2 diabetes. 5. Essential hypertension. 6. Decreased visual acuity. PLAN: 1. Continue nebulizer therapy and steroids as ordered. 2. Monitor glucometers which has improved since we taper the steroids. 3. Continue antibiotics as ordered. 4. BiPAP machine part has been obtained and he is on his BiPAP machine at night. 5. Continue supplemental oxygen. 6. Tentative discharge plans for the next few days. BEN HERNADEZ MD DR: SHIVANI/bell JOB#: [id number] / [id number]
[2019-01-03 15:29] VITALS: BP 135/76
[2019-01-03 20:46] VITALS: BP 99/63
[2019-01-03] MEDS: ATORVASTATIN CALCIUM 20 MG TABLET PO SCH (20:55)
[2019-01-03 23:14] VITALS: BP 118/71
[2019-01-04] MEDS: IPRATRPIUM/ALBUTEROL 0.5/2.5MG 3 ML NEBU. NEB SCH ×4 (05:07→19:44)
[2019-01-04 06:49] VITALS: BP 123/75
[2019-01-04] MEDS: INSULIN NPH/REG INSULIN 70/30 300 UNITS/3 ML INSULN.PEN. SQ SCH ×3 (08:08→17:13)
[2019-01-04] MEDS: ASPIRIN 81 MG TAB.CHEW PO SCH (08:54)
[2019-01-04] MEDS: METHADONE 5 MG TABLET. PO SCH ×2 (08:54→12:18)
[2019-01-04] MEDS: metFORMIN 500 MG TABLET PO SCH ×3 (08:54→17:13)
[2019-01-04] MEDS: ALLOPURINOL 300 MG TABLET. PO SCH (08:54)
[2019-01-04] MEDS: AZITHROMYCIN 250 MG TABLET. PO SCH (08:54)
[2019-01-04] MEDS: LACTOBACILLUS RHAMNOSUS GG 1 CAPSULE. PO SCH ×2 (08:54→19:55)
[2019-01-04] MEDS: DULoxetine HCL 60 MG CAPSULE.DR PO SCH ×2 (08:54→12:18)
[2019-01-04] MEDS: LINAGLIPTIN 5 MG TABLET PO SCH (08:54)
[2019-01-04] MEDS: amLODIPine BESYLATE 10 MG TABLET PO SCH (08:55)
[2019-01-04] MEDS: BUMETANIDE 1 MG TABLET PO SCH (08:55)
[2019-01-04] MEDS: ARIPiprazole 15 MG TABLET PO SCH (08:55)
[2019-01-04] MEDS: NALOXEGOL OXALATE 25 MG TABLET. PO SCH (08:55)
[2019-01-04] MEDS: LISINOPRIL 20 MG TABLET PO SCH (08:55)
[2019-01-04] MEDS: PANTOPRAZOLE 40 MG TABLET. PO SCH (08:55)
[2019-01-04] MEDS: QUEtiapine 50 MG TABLET. PO SCH ×3 (08:56→19:54)
[2019-01-04] MEDS: methylPREDNISolone SOD SUCC PF 40 MG/ML VIAL. IV SCH (08:56)
[2019-01-04] MEDS: POTASSIUM CHLORIDE 10 MEQ TABLET.ER. PO SCH (08:56)
[2019-01-04 11:24] VITALS: BP 139/77
--- NOTE | 2019-01-04 12:25 | PN ---
DATE: 01/04/2019 CHIEF COMPLAINT: Shortness of breath. SUBJECTIVE: The patient had a bad day yesterday. Breathing today is a little better. He denied any significant respiratory distress. He is short of breath with minimal exertion. He is still on supplemental oxygen 24 hours. He is ambulating well. He denied any chest pain, palpitation, nausea or vomiting. PHYSICAL EXAMINATION: VITAL SIGNS: His blood pressure today is 123/75 mmHg, pulse of 71 and regular. He was afebrile, oxygen saturation 97% on 3 liters of nasal cannula. HEENT: Head is without trauma. Pupils are reactive. Sclerae nonicteric. Oropharynx clear. NECK: Supple, no bruits. LUNGS: Fairly good breath sounds with very minimal wheezing in the upper airways. CARDIOVASCULAR: Shows distant heart tones, regular. No obvious gallop. ABDOMEN: Obese, protuberant. No organomegaly. Bowel sounds were hypoactive. EXTREMITIES: Showed no edema. NEUROLOGIC: Focally intact. Speech is fluent. Gait intact. LABORATORY DATA: His blood sugars fluctuate. It is 140 mg/dL this morning. ASSESSMENT: A 68-year-old gentleman with: 1. Acute on chronic respiratory failure. 2. Exacerbation of chronic obstructive pulmonary disease. 3. Noncompliance of oxygen use. 4. Type 2 diabetes. 5. Essential hypertension. 6. Decreased visual acuity. PLAN: 1. Continue nebulizer therapy as ordered. 2. Taper steroid dosage. 3. Monitor glucometers. 4. Continue antibiotics. 5. Continue BiPAP. 6. Supplemental oxygen. 7. Tentative DC plans for tomorrow morning. BEN HERNADEZ MD DR: SHIVANI/bell JOB#: [id number] / [id number]
[2019-01-04 15:00] VITALS: BP 118/81
[2019-01-04 19:32] VITALS: BP 128/79
[2019-01-04] MEDS: ATORVASTATIN CALCIUM 20 MG TABLET PO SCH (19:55)
[2019-01-04 23:01] VITALS: BP 120/75
[2019-01-05 05:02] VITALS: BP 127/83
[2019-01-05] MEDS: IPRATRPIUM/ALBUTEROL 0.5/2.5MG 3 ML NEBU. NEB SCH (05:11)
[2019-01-05] MEDS: PANTOPRAZOLE 40 MG TABLET. PO SCH (08:21)
[2019-01-05] MEDS: DULoxetine HCL 60 MG CAPSULE.DR PO SCH (08:21)
[2019-01-05] MEDS: ARIPiprazole 15 MG TABLET PO SCH (08:21)
[2019-01-05] MEDS: metFORMIN 500 MG TABLET PO SCH (08:21)
[2019-01-05] MEDS: METHADONE 5 MG TABLET. PO SCH (08:21)
[2019-01-05] MEDS: ASPIRIN 81 MG TAB.CHEW PO SCH (08:22)
[2019-01-05] MEDS: POTASSIUM CHLORIDE 10 MEQ TABLET.ER. PO SCH (08:22)
[2019-01-05] MEDS: LINAGLIPTIN 5 MG TABLET PO SCH (08:22)
[2019-01-05] MEDS: LACTOBACILLUS RHAMNOSUS GG 1 CAPSULE. PO SCH (08:22)
[2019-01-05] MEDS: BUMETANIDE 1 MG TABLET PO SCH (08:22)
[2019-01-05] MEDS: amLODIPine BESYLATE 10 MG TABLET PO SCH (08:22)
[2019-01-05] MEDS: QUEtiapine 50 MG TABLET. PO SCH (08:22)
[2019-01-05] MEDS: ALLOPURINOL 300 MG TABLET. PO SCH (08:22)
[2019-01-05] MEDS: AZITHROMYCIN 250 MG TABLET. PO SCH (08:23)
[2019-01-05] MEDS: LISINOPRIL 20 MG TABLET PO SCH (08:23)
[2019-01-05] MEDS: NALOXEGOL OXALATE 25 MG TABLET. PO SCH (08:24)
[2019-01-05] MEDS: INSULIN NPH/REG INSULIN 70/30 300 UNITS/3 ML INSULN.PEN. SQ SCH (08:31)
[2019-01-05] MEDS ORDERED: predniSONE 20 MG TABLET PO SCH (09:00)
[2019-01-05 10:50] VITALS: BP 129/85
--- NOTE | 2019-01-05 20:44 | DS ---
DATE OF DISCHARGE: 01/05/2019 ATTENDING PHYSICIAN: Dr. Le FINAL DIAGNOSES: 1. Acute on chronic respiratory failure. 2. Exacerbation of chronic obstructive pulmonary disease. 3. Noncompliance of oxygen use. 4. Type 2 diabetes. 5. Essential hypertension. 6. Chronic pain syndrome. 7. Decreased visual acuity. HISTORY AND PHYSICAL: The patient, age 68, has advanced oxygen dependent end-stage COPD. He is not compliant regarding his oxygen use. He has been out in the humidity and had an exacerbation. Breathing is labored. He was admitted with respiratory distress, acute on chronic respiratory failure. PHYSICAL EXAMINATION: Please see the dictated note. PERTINENT LABORATORY AND X-RAY STUDIES: Admission chest x-ray showed clear lung thomas without any acute infiltrate. His laboratory studies showed a hemoglobin of 12.5 g/dL with the white count of 8900. Subsequent chemistry panel showed stable creatinine, BUN. Sugars were up a bit due to steroids. These came down with tapering his steroid dose. COURSE IN THE HOSPITAL: The patient was admitted. He was started on [id number]-[id number] nebulizer therapy, Solu-Medrol, and antibiotics. He received 4 full days of empiric antibiotics. We discontinued this as it was not necessary. Lungs were improved. Steroids were quickly tapered. Diet was advanced and he felt better. Home meds were continued. On the fifth hospital day, the patient was doing better. Lungs were clear. Vital signs were stable and he already has supplemental oxygen and he wanted to go home. Therefore, he is discharged home with no further antibiotics necessary. He should continue his allopurinol, amlodipine, Abilify, aspirin, biotin, bumetanide, Cymbalta, fenofibrate, glucosamine and Boswellia, Humulin regular and Lantus insulin, ipratropium bromide, Tradjenta, lisinopril, magnesium, metformin, methadone b.i.d., multivitamin, Movantik, omeprazole, potassium, Seroquel, Crestor, and Zanaflex. The doses are unchanged for now. I did recommend that he stop the daily Celebrex as it can cause bronchoconstriction. He will follow up with his primary care physician. He has supplemental oxygen at home. I did encourage the patient in the heat to stay away from the humidity and be indoors. If he should go outside, I will recommend that he gets his activities done and errands done before 9 a.m. after 9 p.m. He understands these comments and recommendations. The patient was then discharged from our hospital in stable condition with explicit directions on followup care. TOTAL DISCHARGE TIME SPENT: 38 minutes. BEN HERNADEZ MD DR: SHIVANI/bell JOB#: [id number] / [id number]
== END 2019-01-05 12:00 | disposition home or self-care (01) | DRG 189 ==
LOC: ER 17:19 → 1 SOUTH 18:28
PROVIDERS: ADMIT Internal Medicine; ATTEND Internal Medicine
PROC: 5A09357 Assistance with Respiratory Ventilation, Less than 24 Consecutive Hours, Continuous Positive Airway Pressure (ICD-10-PCS; principal; 2019-01-02)
PROC: 5A09357 Assistance with Respiratory Ventilation, Less than 24 Consecutive Hours, Continuous Positive Airway Pressure (ICD-10-PCS; 2019-01-03)
PROC: 5A09357 Assistance with Respiratory Ventilation, Less than 24 Consecutive Hours, Continuous Positive Airway Pressure (ICD-10-PCS; 2019-01-04)
DX: J96.20 Acute and chronic respiratory failure, unspecified whether with hypoxia or hypercapnia (principal); J44.1 Chronic obstructive pulmonary disease with (acute) exacerbation; M79.7 Fibromyalgia; E11.9 Type 2 diabetes mellitus without complications; E78.00 Pure hypercholesterolemia, unspecified; I10 Essential (primary) hypertension; Z87.891 Personal history of nicotine dependence; Z86.73 Personal history of transient ischemic attack (TIA), and cerebral infarction without residual deficits; Z99.81 Dependence on supplemental oxygen; Z91.19 Patient's noncompliance with other medical treatment and regimen; Z85.828 Personal history of other malignant neoplasm of skin; Z82.3 Family history of stroke; G89.4 Chronic pain syndrome
CPT/HCPCS: 36415; 71046; 80048; 80061; 80076; 82550; 82803; 82947; 83036; 83690; 83735; 83880; 84443; 84484; 85007; 85025; 85379; 85610; 85730; 87040; 93005; 94640; 94760; 96361; 96374; 96375; J0456; J0696; J1815; J2920; J2930; J3475; J7120; J7512; J7620; 99285-25

== ENCOUNTER → 2019-02-25 | Outpatient (CLI) | payer MEDICARE, BC ==
[~2019-02-25] MED LIST changes: -AMLO1CAP12 PO; +AMLO1CAP13 PO; +ASPI-630 PO; +BIOT5000 PO; +BUME1TAB3 PO; +GLUC1TAB71 PO; +HUM100IN3 SQ; +LINA5TAB4 PO; +MAGN400C PO; +NALO25TA PO; +POTA10TA10 PO; +PUMP160C2 PO; -TIZA4TAB PO; +TIZA4TAB2 PO
[2019-02-25 14:44] LABS: CALCIUM 9.3 mg/dL (8.5-10.1); CREATININE 1.1 mg/dL (0.7-1.3); GFR 66.8; POTASSIUM 3.8 mmol/L (3.5-5.1)
== END | disposition home or self-care (01) ==
LOC: LAB 13:01
PROVIDERS: ATTEND Nurse Practitioner Adult Health
DX: E78.2 Mixed hyperlipidemia (principal)
CPT/HCPCS: 36415; 80048; 80061; 84450; 84460

== ENCOUNTER → 2019-02-25 | Outpatient (CLI) | payer MEDICARE, BC ==
[2019-02-25 14:36] LABS: BASO % 1 % (0-3); EOS # 0.2 x10^3/uL (0.0-0.7); EOS % 3 % (0-3); HEMATOCRIT 39.9 % (39.0-53.0); HEMOGLOBIN 12.9 g/dL (13.0-17.5); LYMPH # 1.4 x10^3/uL (1.0-4.8); LYMPH % 20 % (24-48); MEAN CORPUSCULAR HEMOGLOBIN 28 pg (25-35); MEAN CORPUSCULAR HGB CONC 32 g/dL (31-37); MEAN CORPUSCULAR VOLUME 87 fL (79-100); MONO # 0.6 x10^3/uL (0.0-1.1); MONO % 10 % (0-9); NEUT # 4.5 x10^3uL (1.8-7.7); NEUT % 67 % (31-73); PLATELET COUNT 184 x10^3/uL (140-400); RED BLOOD COUNT 4.56 x10^6/uL (4.30-5.70); RED CELL DISTRIBUTION WIDTH 16.6 % (11.5-14.5); WHITE BLOOD COUNT 6.8 x10^3/uL (4.0-11.0)
[2019-02-25 14:45] LABS: ALBUMIN 3.8 g/dL (3.4-5.0); ALBUMIN/GLOBULIN RATIO 0.9 (1.0-1.7); CALCIUM 9.4 mg/dL (8.5-10.1); CREATININE 1.1 mg/dL (0.7-1.3); GFR 66.8; POTASSIUM 3.9 mmol/L (3.5-5.1); TOTAL BILIRUBIN 0.4 mg/dL (0.2-1.0); TOTAL PROTEIN 7.9 g/dL (6.4-8.2)
== END | disposition home or self-care (01) ==
LOC: LAB 13:06
PROVIDERS: ATTEND Clinical Nurse Specialist Psychiatric/Mental Health, Adult
DX: Z51.81 Encounter for therapeutic drug level monitoring (principal); Z79.899 Other long term (current) drug therapy
CPT/HCPCS: 36415; 80053; 80061; 84146; 85025

== ENCOUNTER → 2019-04-22 | Outpatient (CLI) | payer MEDICARE, BC ==
[~2019-04-22] MED LIST changes: -GLIM4TAB2 PO; +GLIM4TAB4 PO
--- NOTE | 2019-04-22 10:48 | RAD ---
Right upper extremity venous doppler ultrasound History: Right arm pain and swelling for 2 weeks Comparison: None Findings: Multiple grayscale, color, and duplex spectral analysis sonographic images were acquired of the right upper extremity veins to evaluate for the presence of DVT. There is normal color flow and phasicity of the interrogated right upper extremity veins, no thrombus demonstrated. Impression: 1. There is no evidence of deep venous thrombosis from the interrogated right upper extremity veins. Electronically signed by: Spencer Levy MD (04/22/2019 10:46 AM) [id number]
--- NOTE | 2019-04-22 10:57 | RAD ---
HAND RIGHT 3V History: Hand pain Comparison: November 23, 2016 Findings: 3 views of the right hand are submitted. No acute fracture or dislocation is identified. There is again joint space narrowing of the first carpometacarpal articulation. Impression: 1. There is degenerative change of the first carpometacarpal articulation. No acute fracture is identified. Electronically signed by: Spencer Levy MD (04/22/2019 10:54 AM) [id number]
== END | disposition home or self-care (01) ==
LOC: US 10:07
PROVIDERS: ATTEND Family Medicine
DX: M19.041 Primary osteoarthritis, right hand (principal); M25.841 Other specified joint disorders, right hand; M79.601 Pain in right arm
CPT/HCPCS: 73130; 93971

== ENCOUNTER 2019-06-05 15:32 | Emergency (ER) | payer MEDICARE, BC ==
[~2019-06-05] VITALS: Ht 170.2 cm; Wt 78.6 kg
[~2019-06-05 15:32] MED LIST changes: +OMEP-229 PO; -OMEP20CA10 PO
[2019-06-05 15:40] VITALS: BP 125/74
--- NOTE | 2019-06-05 15:50 | PHYS DOC ---
Past History Past Medical History: COPD, Diabetes, Fibromyalgia Past Surgical History: No Surgical History Smoking: Greater than 1 pack/day, Quit Greater Than 1 Year Alcohol Use: None Drug Use: None Adult General Chief Complaint Chief Complaint: SHORTNESS OF BREATH HPI HPI Patient is a 68-year-old male presents with 3 months of worsening shortness of breath. For the past month and a half his right lower extremity has been swollen compared to his left. Both lower extremities have been swollen, just right is worse. Denies any fever. Denies any orthopnea. Denies any postural nocturnal dyspnea. Notes that his blood sugars been running in the 2-300 range, he is a diabetic patient. Denies any improvement with Bumex that he is on. He is also on home oxygen therapy. He denies any chest pain or palpitations. No recent travel, no trauma, no known hypercoagulable state. Nothing makes the symptoms better or worse.[] Review of Systems Review of Systems Constitutional: Denies fever or chills [] Eyes: Denies change in visual acuity, redness, or eye pain [] HENT: Denies nasal congestion or sore throat [] Respiratory: See history of present illness, mild cough[] Cardiovascular: No chest pain or palpitations[] GI: Denies abdominal pain, nausea, vomiting, bloody stools or diarrhea [] : Denies dysuria or hematuria [] Musculoskeletal: Denies back pain or joint pain [] Integument: Denies rash or skin lesions [] Neurologic: Denies headache, focal weakness or sensory changes [] Endocrine: Denies polyuria or polydipsia [] All other systems were reviewed and found to be within normal limits, except as documented in this note. Current Medications Current Medications Current Medications Medications (Trade) Dose Ordered Sig/Claudia Start Time Stop Time Status Last Admin Dose Admin Bumetanide (Bumex) 1 mg 1X STAT 06/05/19 15:42 06/05/19 15:43 UNV Allergies Allergies Allergies Coded Allergies Type Severity Reaction Last Updated Verified Sulfa (Sulfonamide Antibiotics) Allergy Intermediate 08/20/17 No liraglutide Allergy Intermediate 08/20/17 No quinine Allergy Intermediate 08/20/17 Yes Physical Exam Physical Exam Constitutional: Well developed, well nourished, no acute distress, non-toxic appearance. [] HENT: Normocephalic, atraumatic, bilateral external ears normal, oropharynx moist, no oral exudates, nose normal. [] Eyes: PERRLA, EOMI, conjunctiva normal, no discharge. [] Neck: Normal range of motion, no tenderness, supple, no stridor. [] Cardiovascular:Heart rate regular rhythm, no murmur [] Lungs & Thorax: Bilateral breath sounds clear to auscultation [] Abdomen: Bowel sounds normal, soft, no tenderness, no masses, no pulsatile ma sses. [] Skin: Warm, dry, diffuse erythema of his right lower extremity, no rash. [] Back: No tenderness, no CVA tenderness. [] Extremities: No tenderness, no cyanosis, no clubbing, ROM intact, right lower extremity is more swollen than the left, 1+ edema on the left, 2+ on the right pretibial. [] Neurologic: Alert and oriented X 3, normal motor function, normal sensory function, no focal deficits noted. [] Psychologic: Affect normal, judgement normal, mood normal. [] Current Patient Data Vital Signs Vital Signs Date Time Temp Pulse Resp B/P (MAP) Pulse Ox O2 Delivery O2 Flow Rate FiO2 06/05/19 15:40 78 18 94 Room Air EKG EKG EKG shows a sinus rhythm at 92 bpm, left axis, no ST elevations. QTc of 440 ms, interpreted by me at 1552.[] Radiology/Procedures Radiology/Procedures PROCEDURE: CHEST PA & LATERAL Indication: Shortness of breath TECHNIQUE:Portable AP chest X-ray COMPARISON: 01/01/2019 FINDINGS: Heart is normal in size. Diffuse bilateral interstitial opacities and prominent bronchial markings. No focal consolidation. No pneumothorax or pleural effusion. Visualized bony thorax within normal limits. IMPRESSION: Interstitial opacities bilaterally and prominent bronchial markings may be secondary to bronchitis/atypical/viral infection. PROCEDURE: VENOUS LOWER EXTREMITY RIGHT Ultrasound venous Doppler INDICATION:Right lower extremity swelling. TECHNIQUE: Grayscale, color Doppler and spectral waveform ultrasound images of the right lower extremity deep veins obtained. COMPARISON: None FINDINGS: The interrogated deep veins are compressible and demonstrate evidence of blood flow with normal respiratory variation and response to augmentation. IMPRESSION: No sonographic evidence of acute DVT of the right lower extremity deep veins.[] Course & Med Decision Making Course & Med Decision Making Pertinent Labs and Imaging studies reviewed. (See chart for details) Emergency department course: Patient arrived, was placed in bed, and tolerated exam well. He was transported to and from radiology with any complications. After the return of the laboratory and imaging findings, these were discussed with the patient who voiced understanding. All questions were answered. He was discharged in improved condition. Medical decision making: There is evidence of a bronchitis versus atypical infection, we will cover this with antibiotics given his COPD history. There is no evidence of a DVT, CHF, nor acute hypoxia based on his already known respiratory issues for which she is on supplemental oxygen at home. No evidence of this being an acute coronary syndrome given that the symptoms of been present for months.[] Dragon Disclaimer Dragon Disclaimer This electronic medical record was generated, in whole or in part, using a voice recognition dictation system. Departure Departure: Impression: Primary Impression: Acute bronchitis Additional Impression: Right leg swelling Disposition: HOME, SELF-CARE Condition: IMPROVED Referrals: MONET DICKINSON MD (PCP) Follow-up in 2 days Patient Instructions: Acute Bronchitis, Cellulitis, Peripheral Edema Additional Instructions: Follow-up with your regular doctor in 2 days. Continue your current medications as prescribed. Return to the emergency department if worsening difficulty breathing, fever of more than 101, or any other concerns. Scripts D-Methorphan Hb/Prometh Hcl (PROMETHAZINE-DM SYRUP) 118 Ml Syrup 5 ML PO PRN Q4HRS for CONGESTION, #120 ML Prov: LUIS JURADO DO 06/05/19 Doxycycline Hyclate (DOXYCYCLINE HYCLATE) 100 Mg Tablet 1 TAB PO BID for bronchitis and cellulitis, #20 TAB Prov: LUIS JURADO DO 06/05/19 Problem Qualifiers Primary Impression: Acute bronchitis Bronchitis organism: unspecified organism Qualified Codes: J20.9 - Acute bronchitis, unspecified LUIS JURADO DO Jun 05, 2019 15:50
--- NOTE | 2019-06-05 15:53 | EKG ---
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
[2019-06-05] MEDS ORDERED: BUMETANIDE 1 MG/4 ML VIAL. IVP ONE (16:00)
[2019-06-05 16:31] LABS: BASO % 0 % (0-3); EOS # 0.1 x10^3/uL (0.0-0.7); EOS % 2 % (0-3); HEMATOCRIT 38.8 % (39.0-53.0); HEMOGLOBIN 12.6 g/dL (13.0-17.5); LYMPH # 1.2 x10^3/uL (1.0-4.8); LYMPH % 19 % (24-48); MEAN CORPUSCULAR HEMOGLOBIN 28 pg (25-35); MEAN CORPUSCULAR HGB CONC 33 g/dL (31-37); MEAN CORPUSCULAR VOLUME 87 fL (79-100); MONO # 0.5 x10^3/uL (0.0-1.1); MONO % 9 % (0-9); NEUT # 4.4 x10^3uL (1.8-7.7); NEUT % 70 % (31-73); PLATELET COUNT 197 x10^3/uL (140-400); RED BLOOD COUNT 4.45 x10^6/uL (4.30-5.70); RED CELL DISTRIBUTION WIDTH 16.5 % (11.5-14.5); WHITE BLOOD COUNT 6.2 x10^3/uL (4.0-11.0)
--- NOTE | 2019-06-05 16:33 | RAD ---
Indication: Shortness of breath TECHNIQUE:Portable AP chest X-ray COMPARISON: 01/01/2019 FINDINGS: Heart is normal in size. Diffuse bilateral interstitial opacities and prominent bronchial markings. No focal consolidation. No pneumothorax or pleural effusion. Visualized bony thorax within normal limits. IMPRESSION: Interstitial opacities bilaterally and prominent bronchial markings may be secondary to bronchitis/atypical/viral infection. Electronically signed by: Nick Tellez DO (06/05/2019 4:30 PM) [facility]
[2019-06-05 16:50] LABS: ALBUMIN 3.6 g/dL (3.4-5.0); ALBUMIN/GLOBULIN RATIO 0.9 (1.0-1.7); CALCIUM 9.3 mg/dL (8.5-10.1); GFR 74.5; MAGNESIUM 1.7 mg/dL (1.8-2.4); POTASSIUM 4.1 mmol/L (3.5-5.1); TOTAL BILIRUBIN 0.3 mg/dL (0.2-1.0); TOTAL PROTEIN 7.5 g/dL (6.4-8.2)
--- NOTE | 2019-06-05 17:05 | RAD ---
Ultrasound venous Doppler INDICATION:Right lower extremity swelling. TECHNIQUE: Grayscale, color Doppler and spectral waveform ultrasound images of the right lower extremity deep veins obtained. COMPARISON: None FINDINGS: The interrogated deep veins are compressible and demonstrate evidence of blood flow with normal respiratory variation and response to augmentation. IMPRESSION: No sonographic evidence of acute DVT of the right lower extremity deep veins. Electronically signed by: Nick Tellez DO (06/05/2019 5:03 PM) [facility]
[2019-06-05] MEDS ORDERED: PROM118S9 PO (17:31)
[2019-06-05] MEDS ORDERED: DOXY100T PO (17:31)
== END 2019-06-05 17:41 | disposition home or self-care (01) ==
LOC: ER 15:32
DX: J20.9 Acute bronchitis, unspecified (principal); R22.43 Localized swelling, mass and lump, lower limb, bilateral; J44.9 Chronic obstructive pulmonary disease, unspecified; E11.9 Type 2 diabetes mellitus without complications; M79.7 Fibromyalgia; Z87.891 Personal history of nicotine dependence; Z88.2 Allergy status to sulfonamides; Z88.8 Allergy status to other drugs, medicaments and biological substances
CPT/HCPCS: 36415; 71046; 80053; 83690; 83735; 83880; 84484; 85025; 85379; 85610; 85730; 93005; 93971; 96374; 99285; J3490

== ENCOUNTER 2019-06-30 17:36 | Emergency (ER) | payer MEDICARE, BC | END 2019-06-30 19:30 | disposition home or self-care (01) | LOC: ER 17:36 | DX: M79.671 Pain in right foot (principal); R22.41 Localized swelling, mass and lump, right lower limb; Z53.21 Procedure and treatment not carried out due to patient leaving prior to being seen by health care provider ==

== ENCOUNTER → 2019-06-30 | Outpatient (CLI) | payer MEDICARE, BC ==
[2019-06-05 15:40] VITALS: BP 125/74
[~2019-06-30] MED LIST changes: +DOXY100T PO; -GLIM4TAB4 PO; +GLIM4TAB8 PO; -OMEP-229 PO; +OMEP20CA16 PO; +PROM118S9 PO
--- NOTE | 2019-06-30 11:53 | RAD ---
EXAM: Right lower extremity venous Doppler sonogram. HISTORY: Pain and swelling. TECHNIQUE: Espinal scale and color Doppler sonographic evaluation of the right lower extremity veins with spectral waveform analysis was performed. FINDINGS: There is normal color flow, normal compressibility and there are normal spectral waveforms in the common femoral, superficial femoral, popliteal, posterior tibial and greater saphenous veins. IMPRESSION: No Doppler evidence of lower extremity deep venous thrombosis. Electronically signed by: Elizabeth Barbour MD (06/30/2019 11:51 AM) [place] [id number]
--- NOTE | 2019-06-30 13:45 | RAD ---
EXAM: Right lower extremity arterial Doppler sonogram. HISTORY: Pain and swelling. TECHNIQUE: Espinal scale and color Doppler sonographic evaluation of the right lower extremity arteries with spectral waveform analysis was performed. FINDINGS: There are abnormal monophasic waveforms throughout the right lower extremity arteries due to hemodynamically significant proximal stenosis. There is and elevated peak systolic velocity within the proximal superficial femoral artery measuring 308 cm/s. The remainder the peak systolic velocities remain within normal limits. No occlusion is seen. IMPRESSION: 1. Abnormal monophasic waveforms throughout the lower extremity arteries due to hemodynamically significant proximal stenosis. 2. Suspected severe stenosis involving the proximal superficial femoral artery. Electronically signed by: Elizabeth Barbour MD (06/30/2019 1:42 PM) [place] [id number]
== END | disposition home or self-care (01) ==
LOC: US 07:27
PROVIDERS: ATTEND Family Medicine
DX: I70.291 Other atherosclerosis of native arteries of extremities, right leg (principal); M79.89 Other specified soft tissue disorders; M79.604 Pain in right leg
CPT/HCPCS: 93926; 93971

== ENCOUNTER → 2019-07-28 | Outpatient (CLI) | payer MEDICARE, BC ==
--- NOTE | 2019-07-28 14:03 | RAD ---
EXAM: Right upper extremity venous Doppler. HISTORY: Right arm swelling. COMPARISON: None. FINDINGS: Grayscale and Doppler analysis of the right upper extremity deep venous system was performed with graded compression and augmentation. The internal jugular, subclavian, axillary, brachial, basilic, radial and ulnar veins were assessed. There is no evidence of deep venous thrombosis. IMPRESSION: 1. No evidence of deep venous thrombosis. Electronically signed by: Adriana Saldana MD (07/28/2019 2:00 PM) [facility]
== END | disposition home or self-care (01) ==
LOC: US 08:46
PROVIDERS: ATTEND Family Medicine
DX: M79.601 Pain in right arm (principal)
CPT/HCPCS: 93971

== ENCOUNTER → 2019-10-26 | Outpatient (CLI) | payer MEDICARE, BC ==
[2019-10-26 11:28] LABS: CALCIUM 9.2 mg/dL (8.5-10.1); CREATININE 1.3 mg/dL (0.7-1.3); GFR 54.9; POTASSIUM 4.6 mmol/L (3.5-5.1)
== END | disposition home or self-care (01) ==
LOC: LAB 09:22
PROVIDERS: ATTEND Internal Medicine Cardiovascular Disease
DX: I50.33 Acute on chronic diastolic (congestive) heart failure (principal)
CPT/HCPCS: 36415; 80048; 83735

== ENCOUNTER → 2019-11-02 | Outpatient (CLI) | payer MEDICARE, BC ==
[2019-11-02 09:49] LABS: CALCIUM 9.5 mg/dL (8.5-10.1); CREATININE 1.3 mg/dL (0.7-1.3); GFR 54.9; POTASSIUM 4.3 mmol/L (3.5-5.1)
== END | disposition home or self-care (01) ==
LOC: LAB 09:13
PROVIDERS: ATTEND Internal Medicine Cardiovascular Disease
DX: I50.33 Acute on chronic diastolic (congestive) heart failure (principal)
CPT/HCPCS: 36415; 80048

== ENCOUNTER → 2019-11-25 | Outpatient (CLI) | payer MEDICARE, BC ==
[~2019-11-25] MED LIST changes: +AMLO-187 PO; -AMLO10TA8 PO; -NALO25TA PO; +NALO25TA4 PO; +PROM118S10 PO; -PROM118S9 PO
[2019-11-25 12:46] LABS: CALCIUM 9.6 mg/dL (8.5-10.1); CREATININE 1.5 mg/dL (0.7-1.3); GFR 46.5; POTASSIUM 4.8 mmol/L (3.5-5.1)
== END | disposition home or self-care (01) ==
LOC: LAB 11:37
PROVIDERS: ATTEND Internal Medicine Cardiovascular Disease
DX: I50.33 Acute on chronic diastolic (congestive) heart failure (principal)
CPT/HCPCS: 36415; 80048

== ENCOUNTER 2020-01-17 20:32 | Emergency (ER) | payer MEDICARE, BC ==
[~2020-01-17] VITALS: Ht 170.2 cm; Wt 113.8 kg
[~2020-01-17 20:32] MED LIST changes: -AMLO-187 PO; +AMLO10TA8 PO; +NALO25TA PO; -NALO25TA4 PO
[2020-01-17] MEDS ORDERED: ASPIRIN CHEWABLE 81 MG TABLET. PO ONE (21:00)
--- NOTE | 2020-01-17 21:05 | PHYS DOC ---
Past History Past Medical History: CHF, COPD, Diabetes, Fibromyalgia Past Surgical History: No Surgical History Smoking: Greater than 1 pack/day, Quit Greater Than 1 Year Alcohol Use: None Drug Use: None General Adult EDM: Chief Complaint: CHEST PAIN HPI: HPI: 69-year-old male presents with chest pain. He states that he has been having pain that he describes as a central pressure for the last 2 days. Was making it difficult for him to fall asleep tonight so he decided come the emergency room. He feels like it is worse with deep breathing. He has COPD at baseline. He is on 6 L of oxygen all the time at home. He does not really have shortness of breath. He has been using his albuterol inhaler as needed. Denies fever or chills. Review of Systems: Review of Systems: Constitutional: Denies fever or chills Eyes: Denies change in visual acuity HENT: Denies nasal congestion or sore throat Respiratory: Shortness of breath at baseline Cardiovascular: Chest pain GI: Denies abdominal pain, nausea, vomiting, bloody stools or diarrhea : Denies dysuria Musculoskeletal: Denies back pain or joint pain Integument: Denies rash Neurologic: Denies headache, focal weakness or sensory changes Endocrine: Denies polyuria or polydipsia Lymphatic: Denies swollen glands Psychiatric: Denies depression or anxiety Heart Score: HEART Score for Chest Pain: HEART Score for Chest Pain Response (Comments) Value History Slighlty/Non-Suspicious 0 ECG Nonspecific Repolarizatio 1 Age > 65 2 Risk Factors >3 Risk Factors or Hx CAD 2 Total 5 Risk Factors: Risk Factors: DM, Current or recent (<one month) smoker, HTN, HLP, family history of CAD, obesity. Risk Scores: Score 0 - 3: 2.5% MACE over next 6 weeks - Discharge Home Score 4 - 6: 20.3% MACE over next 6 weeks - Admit for Clinical Observation Score 7 - 10: 72.7% MACE over next 6 weeks - Early Invasive Strategies Current Medications: Current Meds: Current Medications Medications (Trade) Dose Ordered Sig/Claudia Start Time Stop Time Status Last Admin Dose Admin Aspirin (Aspirin Chewable) 324 mg 1X ONCE 01/17/20 21:00 01/17/20 21:01 Allergies: Allergies: Allergies Coded Allergies Type Severity Reaction Last Updated Verified Sulfa (Sulfonamide Antibiotics) Allergy Intermediate 08/20/17 No liraglutide Allergy Intermediate 08/20/17 No quinine Allergy Intermediate 08/20/17 Yes Physical Exam: PE: Constitutional: Well developed, morbidly obese, well nourished, no acute distress, non-toxic appearance. [] HENT: Normocephalic, atraumatic, bilateral external ears normal, oropharynx moist, no oral exudates, nose normal. [] Eyes: PERRLA, EOMI, conjunctiva normal, no discharge. [] Neck: Normal range of motion, no tenderness, supple, no stridor. [] Cardiovascular: Heart rate regular rhythm, no murmur [] Lungs & Thorax: Bilateral breath sounds severely diminished [] Abdomen: Bowel sounds normal, soft, rotund, no tenderness, no masses, no pulsatile masses. Bruising from insulin use. [] Skin: Warm, dry, no erythema, no rash. [] Back: No tenderness, no CVA tenderness. [] Extremities: No tenderness, no cyanosis, no clubbing, ROM intact, no edema. [] Neurologic: Alert and oriented X 3, normal motor function, normal sensory function, no focal deficits noted. [] Psychologic: Affect normal, judgement normal, mood normal. [] Current Patient Data: Vital Signs: Vital Signs Date Time Temp Pulse Resp B/P (MAP) Pulse Ox O2 Delivery O2 Flow Rate FiO2 01/17/20 20:41 98.2 63 16 123/82 (96) 99 Nasal Cannula 5.0 EKG: EKG: Sinus tachycardia, rate 110, leftward axis, no ST elevations or depressions, PVCs. [] Radiology/Procedures: Radiology/Procedures: [] Impressions: Exam: Chest one view INDICATION: Chest pain TECHNIQUE: Frontal view of the chest Comparisons: 06/05/2019 FINDINGS: The cardiomediastinal silhouette and pulmonary vessels are within normal limits. The lung and pleural spaces are clear. IMPRESSION: No acute cardiopulmonary process. Electronically signed by: Gabriel Carpenter MD (01/17/2020 9:28 PM) [id number] DICTATED AND SIGNED BY: GABRIEL CARPENTER MD DATE: 01/17/202127 CC: MONET DICKINSON MD; STEFFEN ESCALANTE DO ~ Course & Med Decision Making: Course & Med Decision Making Pertinent Labs and Imaging studies reviewed. (See chart for details) The patient's EKG has nonspecific conduction abnormalities including PVCs,, chest x-ray is negative for acute findings. His labs are significant for a creatinine of 2.2 which seems to be above his baseline. We will give him a liter normal saline. He also has a troponin of 0.602. He continues to have chest pain. This classifies as an end STEMI. We have given the patient 1 sublingual nitro. This dropped his blood pressure to 102/50. His heart rate has increased to the 120s. We will repeated the EKG with concern for WPW. EKG looks more like A. fib, but not WPW. I spoke with transfer center. I have requested we start heparin drip. The patient has been accepted by Dr. Farrar for transfer. He will go by ambulance. The patient requested [facility]. 41 minutes of critical care time was spent on this patient exclusive of other billable procedures. [] Dragon Disclaimer: Dragon Disclaimer: This electronic medical record was generated, in whole or in part, using a voice recognition dictation system. Departure Departure: Impression: Primary Impression: NSTEMI (non-ST elevated myocardial infarction) Additional Impression: Atrial fibrillation Disposition: 02 XFER SHT-TRM HOSP Condition: GUARDED Referrals: MONET DICKINSON MD (PCP) Justification of Admission: Justification of Admission: Justification of Admission Dx: Yes ID: Acute NSTEMI STEFFEN ESCALANTE DO Jan 17, 2020 21:05
[2020-01-17 21:23] LABS: BASO # 0.1 x10^3/uL (0.0-0.2); BASO % 1 % (0-3); EOS # 0.1 x10^3/uL (0.0-0.7); EOS % 2 % (0-3); HEMATOCRIT 39.4 % (39.0-53.0); HEMOGLOBIN 12.9 g/dL (13.0-17.5); LYMPH # 2.2 x10^3/uL (1.0-4.8); LYMPH % 25 % (24-48); MEAN CORPUSCULAR HEMOGLOBIN 30 pg (25-35); MEAN CORPUSCULAR HGB CONC 33 g/dL (31-37); MEAN CORPUSCULAR VOLUME 91 fL (79-100); MONO # 0.8 x10^3/uL (0.0-1.1); MONO % 9 % (0-9); NEUT # 5.7 x10^3uL (1.8-7.7); NEUT % 64 % (31-73); PLATELET COUNT 210 x10^3/uL (140-400); RED BLOOD COUNT 4.34 x10^6/uL (4.30-5.70); RED CELL DISTRIBUTION WIDTH 18.9 % (11.5-14.5); WHITE BLOOD COUNT 8.8 x10^3/uL (4.0-11.0)
--- NOTE | 2020-01-17 21:31 | RAD ---
Exam: Chest one view INDICATION: Chest pain TECHNIQUE: Frontal view of the chest Comparisons: 06/05/2019 FINDINGS: The cardiomediastinal silhouette and pulmonary vessels are within normal limits. The lung and pleural spaces are clear. IMPRESSION: No acute cardiopulmonary process. Electronically signed by: Gabriel Espinal MD (01/17/2020 9:28 PM) [id number]
[2020-01-17 21:34] LABS: CALCIUM 9.5 mg/dL (8.5-10.1); CREATININE 2.2 mg/dL (0.7-1.3); GFR 29.9; POTASSIUM 3.4 mmol/L (3.5-5.1)
[2020-01-17 21:47] LABS: ALBUMIN 3.5 g/dL (3.4-5.0); ALBUMIN/GLOBULIN RATIO 0.8 (1.0-1.7); TOTAL BILIRUBIN 0.4 mg/dL (0.2-1.0); TOTAL PROTEIN 7.9 g/dL (6.4-8.2)
[2020-01-17] MEDS ORDERED: NITROGLYCERIN SUBLINGUAL 0.4 MG BOTTLE OF 25. SL PRN (22:00)
[2020-01-17] MEDS ORDERED: IV NORMAL SALINE 1,000ML 1,000 ML IV ONE (22:00)
[2020-01-17 22:12] LABS: BILIRUBIN,URINE NEG (NEG); CLARITY,URINE CLEAR; COLOR,URINE YELLOW; GLUCOSE,URINE NEG (NEG); NITRITE,URINE NEG (NEG); UROBILINOGEN,URINE 0.2 mg/dL (0.2 mg/dL)
[2020-01-17 22:17] LABS: BACTERIA,URINE 0 /HPF (0-FEW); HYALINE CASTS, URINE MOD /HPF; RBC,URINE RARE /HPF (0-2); SQUAMOUS EPITHELIAL CELL,UR OCC /LPF
[2020-01-17 22:29] VITALS: BP 102/50
--- NOTE | 2020-01-17 22:44 | EKG ---
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
[2020-01-17] MEDS ORDERED: HEPARIN for IV BOLUS 10,000 UNIT/10 ML VIAL. IV ONE (22:45)
[2020-01-17] MEDS ORDERED: HEPARIN 25,000UTS/250ML PREMIX 250 ML IV PRN (22:45)
[2020-01-17] MEDS ORDERED: HEPARIN for IV BOLUS 10,000 UNIT/10 ML VIAL. IV PRN (22:45)
== END 2020-01-17 23:04 | disposition home or self-care (01) ==
LOC: ER 20:32
DX: I21.4 Non-ST elevation (NSTEMI) myocardial infarction (principal); I48.91 Unspecified atrial fibrillation; E66.01 Morbid (severe) obesity due to excess calories; I50.9 Heart failure, unspecified; J44.9 Chronic obstructive pulmonary disease, unspecified; E11.9 Type 2 diabetes mellitus without complications; M79.7 Fibromyalgia; Z68.39 Body mass index [BMI] 39.0-39.9, adult; Z87.891 Personal history of nicotine dependence; Z88.2 Allergy status to sulfonamides; Z88.8 Allergy status to other drugs, medicaments and biological substances
CPT/HCPCS: 36415; 71045; 80053; 81001; 83880; 84484; 85025; 85610; 85730; 93005; 96374; 99291; J1644; J7030

== ENCOUNTER 2020-02-05 10:27 | Emergency (ER) | payer MEDICARE, BC ==
[~2020-02-05] VITALS: Ht 170.2 cm; Wt 113.8 kg
--- NOTE | 2020-02-05 10:40 | PHYS DOC ---
Past History Past Medical History: CHF, COPD, Diabetes, Fibromyalgia Past Surgical History: No Surgical History Smoking: Greater than 1 pack/day, Quit Greater Than 1 Year Alcohol Use: None Drug Use: None General Adult EDM: Chief Complaint: CHEST PAIN HPI: HPI: 69-year-old male past medical history of CAD with stents placed 3 weeks ago, COPD on 6L NC (tobacco cessation 3 yrs ago), CHF, diabetes and hypertension, presents the ED with complaints of "shortness of breath" and upper, bilateral, nonradiating, "chest pressure," that woke patient up around 6 AM this morning. No relief with 1 sublingual nitro. Reports he took his aspirin and Effient this morning. States symptoms are similar to his ED presentation here 3 weeks ago. EMR was reviewed and patient was seen here January 16 for an NSTEMI and transferred to on a heparin drip, troponin was 0.6, creatinine 2.2-EKG was concerning for atrial fibrillation versus WPW. Review of systems: Denies any associated fever, chills, cough, dyspnea, hemoptysis, nausea, vomiting, diarrhea, diaphoresis, headache, neck stiffness, back pain, leg swelling, rash, syncope or neurologic deficits. Heart Score: HEART Score for Chest Pain: HEART Score for Chest Pain Response (Comments) Value History Moderately Suspicious 1 ECG Nonspecific Repolarizatio 1 Age > 65 2 Risk Factors >3 Risk Factors or Hx CAD 2 Troponin < Normal Limit 0 Total 6 Risk Factors: Risk Factors: DM, Current or recent (<one month) smoker, HTN, HLP, family history of CAD, obesity. Risk Scores: Score 0 - 3: 2.5% MACE over next 6 weeks - Discharge Home Score 4 - 6: 20.3% MACE over next 6 weeks - Admit for Clinical Observation Score 7 - 10: 72.7% MACE over next 6 weeks - Early Invasive Strategies Allergies: Allergies: Allergies Coded Allergies Type Severity Reaction Last Updated Verified Sulfa (Sulfonamide Antibiotics) Allergy Intermediate 08/20/17 No liraglutide Allergy Intermediate 08/20/17 No quinine Allergy Intermediate 08/20/17 Yes Physical Exam: PE: Constitutional: Well developed, well nourished, no acute distress, non-toxic appearance. [] obese HENT: Normocephalic, atraumatic, bilateral external ears normal, oropharynx moist, no oral exudates, nose normal. [] Eyes: EOMI, conjunctiva normal, no discharge. [] Neck: Normal range of motion, no tenderness, supple, no stridor. [] Cardiovascular:Heart rate regular rhythm, no murmur [] Lungs & Thorax: Bilateral breath sounds clear to auscultation [] on 6L NC-98% Abdomen: Bowel sounds normal, soft, no tenderness, no masses, no pulsatile masses. [] Skin: Warm, dry, no erythema, no rash. [] Back: No tenderness, no CVA tenderness. [] Extremities: No tenderness, no cyanosis, no clubbing, ROM intact, no edema-bl hemosiderin deposition. [] Neurologic: Alert and oriented X 3, normal motor function, normal sensory function, no focal deficits noted. [] Psychologic: Affect normal, judgement normal, mood normal. [] EKG: EKG: Sinus rhythm with PAC, 88 bpm, left axis deviation, QTC 490, T wave inversion 1 and aVL, no ST elevations or ST depressions Radiology/Procedures: Radiology/Procedures: []IMAGING REPORT Signed PATIENT: JANINE CALIX ACCOUNT: [id number] : 1950 LOCATION: ER AGE: 69 SEX: M EXAM STATUS: REG ER ORD. PHYSICIAN: NELSY MORENO DO REASON: cp PROCEDURE: PORTABLE CHEST 1V PORTABLE CHEST 1V History: Reason: cp / Spl. Instructions: / History: Comparison: January 17, 2020 Findings: Low lung volumes. Patchy bibasilar opacities, left greater than right. No pleural effusion. No pneumothorax. Normal heart size. Impression: 1. Low lung volumes with patchy bibasilar opacities, may represent atelectasis or developing consolidations. Recommend follow-up. Electronically signed by: Suresh Taylor DO (02/05/2020 10:59 AM) [id number] DICTATED AND SIGNED BY: SURESH TAYLOR DO DATE: 02/05/20 1059 CC: MONET DICKINSON MD; NELSY MORENO DO ~ IMAGING REPORT Signed PATIENT: JANINE CALIX ACCOUNT: [id number] : 1950 LOCATION: ER AGE: 69 SEX: M EXAM STATUS: REG ER ORD. PHYSICIAN: NELSY MORENO DO REASON: soa r/o pe PROCEDURE: CT ANGIOGRAPHY CHEST CT ANGIOGRAPHY CHEST INDICATION: soa, pe Comparison: CT abdomen pelvis 02/08/2014. TECHNIQUE: Following the uneventful administration of intravenous contrast, 75 cc Omnipaque 350, axial CT sections were obtained through the lungs and upper abdomen. Multiplanar reconstructions and MIP images were obtained. PQRS compliance statement: One or more of the following individualized dose reduction techniques were utilized for this examination: 1. Automated exposure control 2. Adjustment of the mA and/or kV according to patient size 3. Use of iterative reconstruction technique FINDINGS: Pulmonary arteries: No evidence of pulmonary thromboembolic disease. Lungs and Airways: No pulmonary mass or consolidation. Bibasilar dependent and subsegmental atelectasis. Paraseptal and centrilobular emphysema. No abnormality of the central airways. Pleura: Abandoned left pleural catheter. The pleural spaces are otherwise normal. Heart and Mediastinum: The visualized thyroid is normal in size and attenuation. No axillary or supraclavicular lymphadenopathy. No mediastinal, hilar or retrocrural lymphadenopathy. Cardiomegaly. Coronary artery atherosclerotic disease. No pericardial effusion. Atherosclerosis of the thoracic aorta. Abdomen: Hepatic steatosis. Partially visualized renal cysts. Bones and Soft Tissues: Degenerative changes of the spine. IMPRESSION: 1. No evidence of pulmonary thromboembolic disease. 2. No pulmonary mass or consolidation. Electronically signed by: Peter Landa MD (02/05/2020 12:42 PM) [id number] DICTATED AND SIGNED BY: PETER LANDA MD DATE: 02/05/20 1242 CC: MONET DICKINSON MD; NELSY MORENO DO ~ Course & Med Decision Making: Course & Med Decision Making Pertinent Labs and Imaging studies reviewed. (See chart for details) Concern for chest pain in the setting of recent cardiac cath, 3 stents placed. Reports he is compliant with his Effient. No stemi on ekg. CXR w/bibasilar patchy opacities that may represent an early developing consolidation. CT Angio of the chest w/no pe, pericardial effusion, mass or consolidation. Initial troponin 0.052- the upper limit of normal. Multiple hospitals on high-volume, unable to transfer to due to this. [facility] in [place], by Dr. Victor Manuel Gerber. Dr. Gerber spoke with cardiology who wanted patient placed on a heparin bolus/infusion at bolus of 60 U/KG (maximum 5000U), drip rate at 10 units/kg/h. Second troponin 0.036 (drawn after transfer accepted) - downtrending troponin and renal function). I have spoken with the patient and/or caregivers. I have explained the patient's condition, diagnosis and treatment plan based on the information available to me at this time. I have answered the patient's and/or caregivers questions and answered any concerns. The patient and/or caregivers have as good an understanding of the patient's diagnosis, condition and treatment plan as can be expected at this point. The patient has been stabilized within the capability of the emergency department. The patient will be transported for further care and management or will be moved to an observation or inpatient service. I have communicated with the staff or medical practitioner taking over this patient's care. Critical Care: Authorized and Performed by: Nelsy Moreno DO Total critical care time: approximately 45 minutes Due to a high probability of clinically significant, life threatening deter ioration, the patient required my highest level of preparedness to intervene emergently and I personally spent this critical care time directly and personally managing the patient. This critical care time included obtaining a history; examining the patient; pulse oximetry; ventilator management if necessary; ordering and review of studies; arranging urgent treatment with development of a management plan; evaluation of patient's response to treatment; frequent reassessment; discussion with patient/family; and, discussions with other providers. This critical care time was performed to assess and manage the high probability of imminent, life-threatening deterioration that could result in multi-organ failure. It was exclusive of separately billable procedures and treating other patients and teaching time. Please see MDM section and the rest of the note for further information on patient assessment and treatment. Dragon Disclaimer: Dragon Disclaimer: This electronic medical record was generated, in whole or in part, using a voice recognition dictation system. Departure Departure: Impression: Primary Impression: Chest pain at rest Additional Impressions: CKD (chronic kidney disease) Normocytic anemia Disposition: 05 TRANSFER OTHER ([facility], Dr. Victor Manuel Yoon) Condition: STABLE Referrals: MONET DICKINSON MD (PCP) Justification of Admission: Justification of Admission: Justification of Admission Dx: Yes MO: Acute NSTEMI NELSY MORENO DO Feb 05, 2020 10:40
--- NOTE | 2020-02-05 11:02 | RAD ---
PORTABLE CHEST 1V History: Reason: cp / Spl. Instructions: / History: Comparison: January 17, 2020 Findings: Low lung volumes. Patchy bibasilar opacities, left greater than right. No pleural effusion. No pneumothorax. Normal heart size. Impression: 1. Low lung volumes with patchy bibasilar opacities, may represent atelectasis or developing consolidations. Recommend follow-up. Electronically signed by: Suresh Taylor DO (02/05/2020 10:59 AM) [id number]
[2020-02-05 11:11] LABS: BASO # 0.1 x10^3/uL (0.0-0.2); BASO % 1 % (0-3); EOS # 0.1 x10^3/uL (0.0-0.7); EOS % 1 % (0-3); HEMATOCRIT 37.5 % (39.0-53.0); HEMOGLOBIN 11.9 g/dL (13.0-17.5); LYMPH % 12 % (24-48); MEAN CORPUSCULAR HEMOGLOBIN 29 pg (25-35); MEAN CORPUSCULAR HGB CONC 32 g/dL (31-37); MEAN CORPUSCULAR VOLUME 92 fL (79-100); MONO # 0.6 x10^3/uL (0.0-1.1); MONO % 7 % (0-9); NEUT # 6.4 x10^3uL (1.8-7.7); NEUT % 79 % (31-73); PLATELET COUNT 203 x10^3/uL (140-400); RED BLOOD COUNT 4.08 x10^6/uL (4.30-5.70); RED CELL DISTRIBUTION WIDTH 18.8 % (11.5-14.5); WHITE BLOOD COUNT 8.1 x10^3/uL (4.0-11.0)
[2020-02-05 11:21] LABS: CALCIUM 9.5 mg/dL (8.5-10.1); CREATININE 1.4 mg/dL (0.7-1.3); GFR 50.4; POTASSIUM 3.8 mmol/L (3.5-5.1)
[2020-02-05 11:33] LABS: ALBUMIN 3.3 g/dL (3.4-5.0); ALBUMIN/GLOBULIN RATIO 0.6 (1.0-1.7); TOTAL BILIRUBIN 0.4 mg/dL (0.2-1.0); TOTAL PROTEIN 8.6 g/dL (6.4-8.2)
[2020-02-05] MEDS: IOHEXOL 350 MG/ML 100 ML VIAL. IV ONE (12:16)
[2020-02-05] MEDS: ALPRAZolam 0.25 MG TABLET PO ONE (12:29)
--- NOTE | 2020-02-05 12:45 | RAD ---
CT ANGIOGRAPHY CHEST INDICATION: soa, pe Comparison: CT abdomen pelvis 02/08/2014. TECHNIQUE: Following the uneventful administration of intravenous contrast, 75 cc Omnipaque 350, axial CT sections were obtained through the lungs and upper abdomen. Multiplanar reconstructions and MIP images were obtained. PQRS compliance statement: One or more of the following individualized dose reduction techniques were utilized for this examination: 1. Automated exposure control 2. Adjustment of the mA and/or kV according to patient size 3. Use of iterative reconstruction technique FINDINGS: Pulmonary arteries: No evidence of pulmonary thromboembolic disease. Lungs and Airways: No pulmonary mass or consolidation. Bibasilar dependent and subsegmental atelectasis. Paraseptal and centrilobular emphysema. No abnormality of the central airways. Pleura: Abandoned left pleural catheter. The pleural spaces are otherwise normal. Heart and Mediastinum: The visualized thyroid is normal in size and attenuation. No axillary or supraclavicular lymphadenopathy. No mediastinal, hilar or retrocrural lymphadenopathy. Cardiomegaly. Coronary artery atherosclerotic disease. No pericardial effusion. Atherosclerosis of the thoracic aorta. Abdomen: Hepatic steatosis. Partially visualized renal cysts. Bones and Soft Tissues: Degenerative changes of the spine. IMPRESSION: 1. No evidence of pulmonary thromboembolic disease. 2. No pulmonary mass or consolidation. Electronically signed by: Spencer Whalen MD (02/05/2020 12:42 PM) [id number]
--- NOTE | 2020-02-05 14:09 | EKG ---
[address] [address] Test Date: 2020-02-05 Test Time: 10:33:35 Pat Name: JANINE CALIX Department: Room: Gender: M Paver Layer: ELINOR : 1950 Requested By: CHRIS MORENO Order Number: [id number] Reading MD: Measurements Intervals [place] Rate: 88 P: 20 CO: 156 QRS: -24 QRSD: 94 T: 95 QT: 402 QTc: 490 Interpretive Statements SINUS RHYTHM ATRIAL PREMATURE COMPLEX(ES) LEFTWARD AXIS T ABNORMALITY IN HIGH LATERAL LEADS PROLONGED QT ABNORMAL ECG RI6.02 No previous ECG available for comparison
[2020-02-05 14:30] VITALS: BP 155/72
[2020-02-05] MEDS: HEPARIN for IV BOLUS 10,000 UNIT/10 ML VIAL. IV ONE (14:32)
[2020-02-05] MEDS: HEPARIN 25,000UTS/250ML PREMIX 250 ML IV PRN (14:36)
== END 2020-02-05 16:04 | disposition short-term general hospital (02) ==
LOC: ER 10:27
DX: R07.89 Other chest pain (principal); D64.9 Anemia, unspecified; E11.22 Type 2 diabetes mellitus with diabetic chronic kidney disease; N18.9 Chronic kidney disease, unspecified; I50.9 Heart failure, unspecified; J44.9 Chronic obstructive pulmonary disease, unspecified; M79.7 Fibromyalgia; Z87.891 Personal history of nicotine dependence; Z88.2 Allergy status to sulfonamides; Z88.8 Allergy status to other drugs, medicaments and biological substances
CPT/HCPCS: 36415; 71045; 71275; 80053; 82550; 82947; 83735; 83880; 84484; 85025; 85610; 85730; 93005; 96365; 96376; 99285; J1644; Q9967

== ENCOUNTER 2020-08-28 14:11 | Emergency (ER) | payer MEDICARE, BC ==
[~2020-08-28] VITALS: Ht 170.2 cm; Wt 113.8 kg
[~2020-08-28 14:11] MED LIST changes: +AMLO-187 PO; -AMLO10TA8 PO; -BUPR-192 PO; +BUPR150T21 PO; -LISI-334 PO; +LISI20TA18 PO; -NALO25TA PO; +NALO25TA4 PO
--- NOTE | 2020-08-28 14:32 | PHYS DOC ---
Past History Past Medical History: A-Fib, CAD, CHF, COPD, Diabetes, Hypertension Past Surgical History: Angioplasty Smoking: Greater than 1 pack/day, Quit Greater Than 1 Year Alcohol Use: None Drug Use: None General Adult EDM: Chief Complaint: SHORTNESS OF BREATH HPI: HPI: 70 year-old male past medical history of CAD with stents (on effient), COPD on 6L NC (tobacco cessation 3 yrs ago), CHF (on bumex, no AICD/bipap at home), diabetes and hypertension, presents to the ED with complaints of progressively worsening "shortness of breath," and orthopnea for two months but worsened today, feels similar to when he was admitted to in March for his COPD. No relief with breathing treatments at home. Does not recall last steroid use. Has never tested positive for Covid. No history of intubation, dvt or pe. EMR was reviewed and patient was transferred to [facility] in December 2019 for NSTEMI. I saw patient in January for chest pain, CTA chest (no d-dimer) with atherosclerosis of the thoracic aorta, no pericardial effusion, CAD and evidence of pulmonary thromboembolic disease. Patient was admitted at that time with downtrending troponins. Review of Systems: Review of Systems: Constitutional: Denies fever or chills Eyes: Denies change in visual acuity HENT: Denies nasal congestion or sore throat Respiratory: Denies cough or hemoptysis Cardiovascular: Denies chest pain or edema GI: Denies abdominal pain, nausea, vomiting, bloody stools or diarrhea : Denies dysuria or hematuria Musculoskeletal: Denies back pain or joint pain or unilateral leg swelling Integument: Denies rash or diaphoresis Neurologic: Denies headache, focal weakness or sensory changes Endocrine: Denies polyuria or polydipsia Lymphatic: Denies swollen glands Psychiatric: Denies depression or anxiety Allergies: Allergies: Allergies Coded Allergies Type Severity Reaction Last Updated Verified Sulfa (Sulfonamide Antibiotics) Allergy Intermediate 02/05/20 No liraglutide Allergy Intermediate 02/05/20 No quinine Allergy Intermediate 02/05/20 Yes Physical Exam: PE: Constitutional: Well developed, well nourished, no acute distress, non-toxic appearance, sitting on edge of bed/forward w/hands on knees/tripod position HENT: Normocephalic, atraumatic, no head or neck swelling, oropharynx patent, no pharyngeal erythema or exudates Eyes: EOMI, conjunctiva normal, no discharge. Neck: Normal range of motion, supple, Cardiovascular: S1/2 present, regular rhythm Lungs & Thorax: Speaking in full sentences, bilateral equal chest rise, mild tachypnea with expiratory wheezing but moving air bilaterally, Abdomen: soft, no tenderness, Skin: Warm, dry, no erythema, no rash. [] Back: No tenderness, no CVA tenderness. [] Extremities: No tenderness, no cyanosis, no lower extremity edema Neurologic: Alert and oriented X 3, normal motor function, normal sensory function, no focal deficits noted. [] Psychologic: Affect normal, judgement normal, mood normal. [] EKG: EKG: Sinus rhythm 89 bpm, left axis deviation, normal intervals, T wave inversion aVL/possibly lead I, no obvious ST elevations or ST depressions, poor baseline EKG, no associated chest pain or pressure, patient complains of shortness of breath and orthopnea Radiology/Procedures: Radiology/Procedures: IMAGING REPORT Signed PATIENT: JANINE CALIX ACCOUNT: [id number] : 1950 LOCATION: ER AGE: 70 SEX: M EXAM STATUS: REG ER ORD. PHYSICIAN: CHRIS MORENO DO REASON: Short of air PROCEDURE: PORTABLE CHEST 1V AP chest. HISTORY: Short of air AP view was taken of the chest. Patient's taken a poor inspiration. There is no definite effusion. Heart is upper normal in size. Aorta is mildly tortuous. There are no acute infiltrates. IMPRESSION: 1. No acute infiltrates. Electronically signed by: Paulino Reynolds MD (08/28/2020 2:57 PM) [id number] DICTATED AND SIGNED BY: PAULINO REYNOLDS MD DATE: 08/28/20 1456 CC: MONET DICKINSON MD; CHRIS MORENO DO ~MTH0 0 Heart Score: C/O Chest Pain: No Risk Factors: Risk Factors: DM, Current or recent (<one month) smoker, HTN, HLP, family history of CAD, obesity. Risk Scores: Score 0 - 3: 2.5% MACE over next 6 weeks - Discharge Home Score 4 - 6: 20.3% MACE over next 6 weeks - Admit for Clinical Observation Score 7 - 10: 72.7% MACE over next 6 weeks - Early Invasive Strategies Course & Med Decision Making: Course & Med Decision Making Pertinent Labs and Imaging studies reviewed. (See chart for details) Concern for dyspnea/orthopnea with no chest pain, cough, hemoptysis or unilateral leg swelling. Patient was treated with with Lasix and steroids /breathing treatments in ED. Patients' symptoms improved after breathing treatments -suspect COPD exacerbation >> chf. labs show slightly worsening normocytic anemia and chronic kidney disease. No leukopenia consistent with Covid. No leg swelling. Symptoms resolved and pt declined admission, requested to be discharged home. Pt now seated comfortably, clear lungs with no tripod po sitioning or increased wob. Considered d-dimer, was 0.42 in 05/2019. Likely will be elevated. Pulmonary emboli are considered on differential, although with renal function and resolution of symptoms, low suspicion to perform CTA. Has a very supportive who agrees to return to ED immediately if symptoms should come back/or if patient develops any difficulties breathing/increased work of breathing. Will discharge home with strict ED return precautions were given for hemoptysis, increased work of breathing, chest pain or worsening shortness of breath. Encouraged urgent outpatient follow-up with PMD and pulmonology. Life-threatening processes were considered but are low suspicion at this time, given history, physical exam and ED workup. Pt was educated on all prescription medications and adverse effects. All patient's questions were answered and pt was stable at time of discharge. Life/limb-threatening differential includes but is not limited to, ACS, dysrhythmia, pneumothorax or hemothorax, pulmonary embolus, pneumonia, bronchoconstriction, pulmonary edema, angioedema, epiglottitis, tracheitis, Inderjit's angina, RPA/PIPE RECOVERY SPECIALIST, anaphylaxis, angioedema, cardiac tamponade or murmurs, pericarditis, myocarditis, poisoning or toxicity, sepsis or autoimmune/neurologic disease. I spoken with the patient and her caregivers. I explained the patient's condition, diagnoses and treatment plan based on the information available to me at this time. I have answered the patient and her caregiver's questions and addressed any concerns. The patient and her caregivers have a good understanding of patient's diagnosis, condition and treatment plan as can be expected at this point. Vital signs have been stable. Patient's condition is stable and appropriate for discharge from the emergency department. Patient will pursue further outpatient evaluation with primary care physician or other designated or consulting physician as outlined in the discharge instructions. The patient and/or caregivers are agreeable to this plan of care and follow-up instructions have been explained in detail. The patient and/or caregivers have received these instructions in written form and have expressed an understanding of the discharge instructions. The patient and/or caregivers are aware that any significant change of condition or worsening of symptoms should prompt immediate return to this or the closest emergency department or call to [facility] Disclaimer: Kerecis Disclaimer: This electronic medical record was generated, in whole or in part, using a voice recognition dictation system. Departure Departure: Impression: Primary Impression: Dyspnea Additional Impressions: COPD exacerbation Normocytic anemia CKD (chronic kidney disease) Disposition: 01 DC HOME SELF CARE/HOMELESS Condition: STABLE Referrals: MONET DICKINSON MD (PCP) Follow-up in 24 to 48 hours Patient Instructions: Chronic Obstructive Pulmonary Disease Exacerbation Additional Instructions: FOLLOW UP WITH: [facility] Address: [address] [place] [address] EMERGENCY DEPARTMENT GENERAL DISCHARGE INSTRUCTIONS Thank you for coming to [facility] (ED) today and trusting us with you care. We trust that you had a positivie experience in our Emergency Department. If you wish to speak to the department management, you may call the director at [phone]. YOUR FOLLOW UP INSTRUCTIONS ARE FOLLOWS: 1. Do you have a private Doctor? If you do not have a private doctor, please ask for a resource list of physicians or clinics that may be able to assist you with follow up care. 2. The Emergency Physician has interpreted your x-rays. The X-Ray specialist will also review them. If there is a change in the findings, you will be notified in 48 hours when at all possible. 3. A lab test or culture has been done, your results will be reviewed and you will be notified if you need a change in treatment. ADDITIONAL INSTRUCTIONS AND INFORMATION: 1. Your care today has been supervised by a physician who is specially trained in emergency care. Many problems require more than one evaluation for a complete diagnosis and treatment. We recommend that you schedule your follow up appointment as recommended to ensure complete treatment of you illness or injury. If you are unable to obtain follow up care and continue to have a problem, or if your condition worsens, we recommend that you return to the ED. 2. We are not able to safely determine your condition over the phone nor are we able to give sound medical advice over the phone. For these safety reasons, if you call for medical advice we will ask you to come to the ED for further evaluation. 3. If you have any questions regarding these discharge instructions please call the ED at [phone]. SAFETY INFORMATION: In the interest of safety, wellness, and injury prevention; we encourage you to wear your sealbelt, if you smoke; quite smoking, and we encourage family to use a protective helmet for bicycling and other sporting events that present an increased risk for head injury. IF YOUR SYMPTOMS WORSEN OR NEW SYMPTOMS DEVELOP, OR YOU HAVE CONCERNS ABOUT YOUR CONDITION; OR IF YOUR CONDITION WORSENS WHILE YOU ARE WAITING FOR YOUR FOLLOW UP APPOINTMENT; EITHER CONTACT YOUR PRIMARY CARE DOCTOR, THE PHYSICIAN WHOSE NAME AND NUMBER YOU WERE GIVEN, OR RETURN TO THE ED IMMEDIATELY. Scripts Fluticasone Propionate (FLOVENT 44MCG HFA) 10.6 Gm Aer.w.adap 2 PUFF IH BID for copd for 30 Days, #1 INHALER 2 Refills Prov: CHRIS MORENO DO 08/28/20 Albuterol Sulfate (VENTOLIN HFA INHALER) 18 Gm Hfa.aer.ad 1 PUFF IH PRN Q4HRS PRN for FOR ASTHMA, #1 EACH 0 Refills Prov: CHRIS MORENO DO 08/28/20 Prednisone (PREDNISONE) 50 Mg Tablet 50 MG PO DAILY for copd for 5 Days, #5 TAB Prov: CHRIS MORENO DO 08/28/20 CHRIS MORENO DO Aug 28, 2020 14:32
--- NOTE | 2020-08-28 15:00 | RAD ---
AP chest. HISTORY: Short of air AP view was taken of the chest. Patient's taken a poor inspiration. There is no definite effusion. He art is upper normal in size. Aorta is mildly tortuous. There are no acute infiltrates. IMPRESSION: 1. No acute infiltrates. Electronically signed by: Paulino Reynolds MD (08/28/2020 2:57 PM) [id number]
[2020-08-28 15:07] LABS: BASO % 0 % (0-3); EOS # 0.1 x10^3/uL (0.0-0.7); EOS % 1 % (0-3); HEMATOCRIT 34.4 % (39.0-53.0); HEMOGLOBIN 10.8 g/dL (13.0-17.5); LYMPH # 1.4 x10^3/uL (1.0-4.8); LYMPH % 17 % (24-48); MEAN CORPUSCULAR HEMOGLOBIN 29 pg (25-35); MEAN CORPUSCULAR HGB CONC 31 g/dL (31-37); MEAN CORPUSCULAR VOLUME 93 fL (79-100); MONO # 0.5 x10^3/uL (0.0-1.1); MONO % 6 % (0-9); NEUT # 6.1 x10^3uL (1.8-7.7); NEUT % 75 % (31-73); PLATELET COUNT 232 x10^3/uL (140-400); RED CELL DISTRIBUTION WIDTH 19.4 % (11.5-14.5); WHITE BLOOD COUNT 8.1 x10^3/uL (4.0-11.0)
[2020-08-28 15:22] LABS: CALCIUM 9.3 mg/dL (8.5-10.1); CREATININE 1.5 mg/dL (0.7-1.3); GFR 46.4; POTASSIUM 4.7 mmol/L (3.5-5.1)
[2020-08-28 15:30] VITALS: BP 129/75
[2020-08-28 15:33] LABS: ALBUMIN 3.5 g/dL (3.4-5.0); ALBUMIN/GLOBULIN RATIO 0.7 (1.0-1.7); TOTAL BILIRUBIN 0.4 mg/dL (0.2-1.0); TOTAL PROTEIN 8.4 g/dL (6.4-8.2)
[2020-08-28] MEDS ORDERED: DEXAMETHASONE SOD PHOS 10 MG/ML VIAL. IVP ONE (16:00)
[2020-08-28] MEDS: IPRATRPIUM/ALBUTEROL 0.5/2.5MG 3 ML NEBU. NEB PRN ×2 (16:03→16:10)
[2020-08-28] MEDS ORDERED: FUROSEMIDE 40 MG TABLET PO ONE (16:15)
--- NOTE | 2020-08-28 17:00 | EKG ---
[facility] ED [facility] [place] [id number] Test Date: 2020-08-28 Test Time: 14:54:24 Pat Name: JANINE CALIX Department: Room: Gender: M Cardiovascular Physician Assistant: : 1950 Requested By: CHRIS MORENO Order Number: [id number] Reading MD: Measurements Intervals [place] Rate: 89 P: -38 MS: 140 QRS: -26 QRSD: 90 T: 96 QT: 346 QTc: 422 Interpretive Statements SUPRAVENTRICULAR RHYTHM LEFTWARD AXIS R-S TRANSITION ZONE IN V LEADS DISPLACED TO THE LEFT T ABNORMALITY IN HIGH LATERAL LEADS ABNORMAL ECG RI6.02 No previous ECG available for comparison
[2020-08-28] MEDS ORDERED: PRED50TA PO (18:09)
[2020-08-28] MEDS ORDERED: FLUT10.6 IH (18:09)
[2020-08-28] MEDS ORDERED: ALBU2.5V8 IH (18:09)
== END 2020-08-28 18:20 | disposition home or self-care (01) ==
LOC: ER 14:11
DX: J44.1 Chronic obstructive pulmonary disease with (acute) exacerbation (principal); E11.22 Type 2 diabetes mellitus with diabetic chronic kidney disease; I13.0 Hypertensive heart and chronic kidney disease with heart failure and stage 1 through stage 4 chronic kidney disease, or unspecified chronic kidney disease; N18.9 Chronic kidney disease, unspecified; I50.9 Heart failure, unspecified; D64.9 Anemia, unspecified; I48.91 Unspecified atrial fibrillation; I25.10 Atherosclerotic heart disease of native coronary artery without angina pectoris; Z87.891 Personal history of nicotine dependence; Z98.61 Coronary angioplasty status; Z88.2 Allergy status to sulfonamides; Z88.8 Allergy status to other drugs, medicaments and biological substances
CPT/HCPCS: 36415; 71045; 80053; 82550; 83880; 84484; 85025; 93005; 94644; 96374; 99285; J1100; 94640

== ENCOUNTER 2021-01-22 01:34 | Emergency (ER) | payer MEDICARE, BC ==
[~2021-01-22] VITALS: Ht 170.2 cm; Wt 113.8 kg
[~2021-01-22 01:34] MED LIST changes: +ALBU2.5V8 IH; -DOXY100C2 PO; +DOXY100C3 PO; +FLUT10.6 IH; +METH-570 PO; -METH10TA2 PO; +PRED50TA PO
[2021-01-22 01:51] VITALS: BP 121/72
--- NOTE | 2021-01-22 02:18 | PHYS DOC ---
Past History Past Medical History: A-Fib, CAD, CHF, COPD, Diabetes, High Cholesterol, Hypertension Past Surgical History: Angioplasty Additional Past Surgical Histo: 3 stents Smoking: Greater than 1 pack/day, Quit Greater Than 1 Year Alcohol Use: None Drug Use: None General Adult EDM: Chief Complaint: WOUND CHECK HPI: HPI: 70-year-old male presents with nosebleed and bleeding of the lower extremity. The patient states that he has had a nosebleed all day. He is on Xarelto. He had cellulitis of his lower left leg and had some kind of wounds debrided at . When his changed his dressing today the area started bleeding and it has not stopped. That is why the patient came to the emergency room. He denies shortness of breath, dizziness, chest pain or diaphoresis. Review of Systems: Review of Systems: Constitutional: Denies fever or chills Eyes: Denies change in visual acuity HENT: Nosebleed Respiratory: Denies cough or shortness of breath Cardiovascular: Denies chest pain or edema GI: Denies abdominal pain, nausea, vomiting, bloody stools or diarrhea : Denies dysuria Musculoskeletal: Denies back pain or joint pain Integument: Bleeding left lower extremity Neurologic: Denies headache, focal weakness or sensory changes Endocrine: Denies polyuria or polydipsia Lymphatic: Denies swollen glands Psychiatric: Denies depression or anxiety Current Medications: Current Meds: Current Medications Medications (Trade) Dose Ordered Sig/Claudia Start Time Stop Time Status Last Admin Dose Admin Oxymetazoline HCl (Afrin) 2 spray 1X ONCE 01/22/21 02:30 01/22/21 02:31 Allergies: Allergies: Allergies Coded Allergies Type Severity Reaction Last Updated Verified Sulfa (Sulfonamide Antibiotics) Allergy Intermediate 08/28/20 No liraglutide Allergy Intermediate 08/28/20 No quinine Allergy Intermediate 08/28/20 Yes Physical Exam: PE: Constitutional: Well developed, well nourished, disheveled appearance with a smell of animal urine, no acute distress, non-toxic appearance. [] HENT: Normocephalic, atraumatic, bilateral external ears normal, oropharynx moist, no oral exudates, nose bleeding. [] Eyes: PERRLA, EOMI, conjunctiva normal, no discharge. [] Neck: Normal range of motion, no tenderness, supple, no stridor. [] Cardiovascular: Heart rate regular rhythm, no murmur [] Lungs & Thorax: Bilateral breath sounds clear to auscultation [] Abdomen: Bowel sounds normal, soft, no tenderness, no masses, no pulsatile masses. [] Skin: Spontaneously bleeding skin of the left lower leg [] Back: No tenderness, no CVA tenderness. [] Extremities: No tenderness, no cyanosis, no clubbing, ROM intact, no edema. [] Neurologic: Alert and oriented X 3, normal motor function, normal sensory function, no focal deficits noted. [] Psychologic: Affect normal, judgement normal, mood normal. [] Current Patient Data: Vital Signs: Vital Signs Date Time Temp Pulse Resp B/P (MAP) Pulse Ox O2 Delivery O2 Flow Rate FiO2 01/22/21 01:51 98.5 64 20 121/72 98 Nasal Cannula 6.0 EKG: EKG: [] Radiology/Procedures: Radiology/Procedures: [] Heart Score: C/O Chest Pain: N/A Risk Factors: Risk Factors: DM, Current or recent (<one month) smoker, HTN, HLP, family history of CAD, obesity. Risk Scores: Score 0 - 3: 2.5% MACE over next 6 weeks - Discharge Home Score 4 - 6: 20.3% MACE over next 6 weeks - Admit for Clinical Observation Score 7 - 10: 72.7% MACE over next 6 weeks - Early Invasive Strategies Course & Med Decision Making: Course & Med Decision Making Pertinent Labs and Imaging studies reviewed. (See chart for details) The patient's labs are significant for hemoglobin of 8.1. He does not meet transfusion criteria but I am concerned that he may be headed to a transfusion if he continues to have bleeding. I believe he needs to hold his blood thinner medications at this time and discuss their use with his doctor. We had a moderate amount of trouble getting the patient's oozing wounds to stop bleeding. We used Surgicel and compression. The patient's nosebleed stopped after Afrin and direct pressure therapy. The patient is on oxygen all the time so this is likely irritating his nasal passages allowing them to bleed. He is stable for discharge at this time. [] Dragon Disclaimer: Dragon Disclaimer: This electronic medical record was generated, in whole or in part, using a voice recognition dictation system. Departure Departure: Impression: Primary Impression: Anticoagulant-induced bleeding Additional Impressions: Epistaxis Anemia Disposition: HOME / SELF CARE / HOMELESS Condition: IMPROVED Referrals: MONET DICKINSON MD (PCP) Patient Instructions: Juan, [id number] STEFFEN ESCALANTE DO Jan 22, 2021 02:18
[2021-01-22] MEDS ORDERED: OXYMETAZOLINE 0.05% NASAL SPRAY 30ML BOTTLE. NS ONE (02:30)
[2021-01-22] MEDS ORDERED: GELATIN SPONGE SIZE 12-7MM SPONGE. ONE ×4 (02:32→04:40)
[2021-01-22] MEDS ORDERED: DEXTROSE ORAL GEL 15 GM TUBE. PO ONE (03:00)
[2021-01-22 03:29] LABS: BASO # 0.1 x10^3/uL (0.0-0.2); BASO % 1 % (0-3); EOS # 0.1 x10^3/uL (0.0-0.7); EOS % 2 % (0-3); HEMOGLOBIN 8.1 g/dL (13.0-17.5); LYMPH # 1.2 x10^3/uL (1.0-4.8); LYMPH % 13 % (24-48); MEAN CORPUSCULAR HEMOGLOBIN 29 pg (25-35); MEAN CORPUSCULAR HGB CONC 31 g/dL (31-37); MEAN CORPUSCULAR VOLUME 93 fL (79-100); MONO # 0.7 x10^3/uL (0.0-1.1); MONO % 8 % (0-9); NEUT # 7.1 x10^3uL (1.8-7.7); NEUT % 76 % (31-73); PLATELET COUNT 280 x10^3/uL (140-400); RED BLOOD COUNT 2.78 x10^6/uL (4.30-5.70); RED CELL DISTRIBUTION WIDTH 18.4 % (11.5-14.5); WHITE BLOOD COUNT 9.3 x10^3/uL (4.0-11.0)
[2021-01-22 03:44] LABS: CALCIUM 8.8 mg/dL (8.5-10.1); CREATININE 1.4 mg/dL (0.7-1.3); GFR 50.2; POTASSIUM 4.2 mmol/L (3.5-5.1)
[2021-01-22 03:48] LABS: % BANDS 8 % (0-9); % BASOS 1 % (0-3); % LYMPHS 25 % (24-48); % MONOS 2 % (0-10); % SEGS 64 % (35-66); PLT ESTIMATE ADEQUATE (ADEQUATE)
[2021-01-22 03:49] LABS: ANISOCYTOSIS SLIGHT
[2021-01-22 04:01] LABS: ALBUMIN 2.9 g/dL (3.4-5.0); ALBUMIN/GLOBULIN RATIO 0.6 (1.0-1.7); TOTAL BILIRUBIN 0.3 mg/dL (0.2-1.0); TOTAL PROTEIN 8.1 g/dL (6.4-8.2)
== END 2021-01-22 04:30 | disposition home or self-care (01) ==
LOC: ER 01:34
DX: R04.0 Epistaxis (principal); D64.9 Anemia, unspecified; D68.32 Hemorrhagic disorder due to extrinsic circulating anticoagulants; I11.0 Hypertensive heart disease with heart failure; I50.9 Heart failure, unspecified; J44.9 Chronic obstructive pulmonary disease, unspecified; E78.5 Hyperlipidemia, unspecified; F17.210 Nicotine dependence, cigarettes, uncomplicated; Z88.2 Allergy status to sulfonamides
CPT/HCPCS: 36415; 80053; 82947; 85007; 85025; 99283

== ENCOUNTER → 2021-01-27 | Outpatient (CLI) | payer MEDICARE, BC ==
[~2021-01-27] MED LIST changes: +ACETAMINOPHEN 325 MG TABLET PO PRN; +FUROSEMIDE 40 MG/4 ML VIAL IVP ONE; +diphenhydrAMINE ORAL ELIXIR 12.5 MG/5 ML ML PO PRN
[2021-01-27 15:31] LABS: BASO % 0 % (0-3); EOS # 0.1 x10^3/uL (0.0-0.7); EOS % 2 % (0-3); HEMATOCRIT 24.7 % (39.0-53.0); HEMOGLOBIN 7.5 g/dL (13.0-17.5); LYMPH # 1.4 x10^3/uL (1.0-4.8); LYMPH % 18 % (24-48); MEAN CORPUSCULAR HEMOGLOBIN 28 pg (25-35); MEAN CORPUSCULAR HGB CONC 30 g/dL (31-37); MEAN CORPUSCULAR VOLUME 94 fL (79-100); MONO # 0.6 x10^3/uL (0.0-1.1); MONO % 8 % (0-9); NEUT # 5.4 x10^3uL (1.8-7.7); NEUT % 72 % (31-73); PLATELET COUNT 228 x10^3/uL (140-400); RED BLOOD COUNT 2.64 x10^6/uL (4.30-5.70); RED CELL DISTRIBUTION WIDTH 18.6 % (11.5-14.5); WHITE BLOOD COUNT 7.6 x10^3/uL (4.0-11.0)
[2021-01-27 16:20] VITALS: BP 120/63
[2021-01-27 16:47] VITALS: BP 132/70
[2021-01-27 17:40] VITALS: BP 148/79
[2021-01-27 18:38] VITALS: BP 148/75
[2021-01-27 19:35] VITALS: BP 124/69
== END | disposition home or self-care (01) ==
LOC: OPINF 14:01
PROVIDERS: ATTEND Family Medicine
DX: D50.0 Iron deficiency anemia secondary to blood loss (chronic) (principal); J96.10 Chronic respiratory failure, unspecified whether with hypoxia or hypercapnia; J44.9 Chronic obstructive pulmonary disease, unspecified; I25.10 Atherosclerotic heart disease of native coronary artery without angina pectoris; I25.2 Old myocardial infarction; I11.0 Hypertensive heart disease with heart failure; I50.9 Heart failure, unspecified; I48.91 Unspecified atrial fibrillation; E11.9 Type 2 diabetes mellitus without complications; E78.5 Hyperlipidemia, unspecified; E78.00 Pure hypercholesterolemia, unspecified; E66.01 Morbid (severe) obesity due to excess calories; Z68.39 Body mass index [BMI] 39.0-39.9, adult; Z95.5 Presence of coronary angioplasty implant and graft; Z99.81 Dependence on supplemental oxygen; Z87.891 Personal history of nicotine dependence
CPT/HCPCS: 36415; 36430; 82947; 85025; 85027; 86850; 86900; 86901; 86920; 96374; J1940; P9016

== ENCOUNTER 2021-02-02 17:11 | Inpatient (IN) | payer MEDICARE, BC ==
[~2021-02-02] VITALS: Ht 170.2 cm; Wt 113.6 kg
[~2021-02-02 17:11] MED LIST changes: -ACETAMINOPHEN 325 MG TABLET PO PRN; -FUROSEMIDE 40 MG/4 ML VIAL IVP ONE; -diphenhydrAMINE ORAL ELIXIR 12.5 MG/5 ML ML PO PRN
[2021-02-02] MEDS ORDERED: IV NORMAL SALINE 1,000ML 1,000 ML IV ONE (18:00)
[2021-02-02 18:07] LABS: BASO % 1 % (0-3); CALCIUM 8.4 mg/dL (8.5-10.1); CREATININE 1.4 mg/dL (0.7-1.3); EOS # 0.1 x10^3/uL (0.0-0.7); EOS % 2 % (0-3); GFR 50.2; HEMATOCRIT 20.8 % (39.0-53.0); LYMPH # 1.4 x10^3/uL (1.0-4.8); LYMPH % 17 % (24-48); MEAN CORPUSCULAR HEMOGLOBIN 29 pg (25-35); MEAN CORPUSCULAR HGB CONC 32 g/dL (31-37); MEAN CORPUSCULAR VOLUME 92 fL (79-100); MONO # 0.7 x10^3/uL (0.0-1.1); MONO % 8 % (0-9); NEUT # 6.2 x10^3uL (1.8-7.7); NEUT % 73 % (31-73); PLATELET COUNT 203 x10^3/uL (140-400); POTASSIUM 4.5 mmol/L (3.5-5.1); RED BLOOD COUNT 2.25 x10^6/uL (4.30-5.70); RED CELL DISTRIBUTION WIDTH 18.6 % (11.5-14.5); WHITE BLOOD COUNT 8.4 x10^3/uL (4.0-11.0)
[2021-02-02 18:10] LABS: HEMOGLOBIN 6.6 g/dL (13.0-17.5)
[2021-02-02 18:13] LABS: ALBUMIN 2.8 g/dL (3.4-5.0); ALBUMIN/GLOBULIN RATIO 0.6 (1.0-1.7); TOTAL BILIRUBIN 0.3 mg/dL (0.2-1.0); TOTAL PROTEIN 7.4 g/dL (6.4-8.2)
[2021-02-02 19:02] LABS: BACTERIA,URINE 0 /HPF (0-FEW); BILIRUBIN,URINE NEG (NEG); CLARITY,URINE CLEAR; COLOR,URINE YELLOW; GLUCOSE,URINE NEG (NEG); NITRITE,URINE NEG (NEG); RBC,URINE 0 /HPF (0-2); SQUAMOUS EPITHELIAL CELL,UR OCC /LPF; WBC,URINE RARE /HPF (0-4)
--- NOTE | 2021-02-02 19:12 | PHYS DOC ---
Past History Past Medical History: A-Fib, CAD, CHF, COPD, Diabetes, High Cholesterol, Hypertension (ISRAEL HILL APRN) Past Surgical History: Angioplasty Additional Past Surgical Histo: 3 stents (ISRAEL HILL APRN) Smoking: Greater than 1 pack/day, Quit Greater Than 1 Year Alcohol Use: None Drug Use: None (ISRAEL HILL APRN) General Adult EDM: Chief Complaint: HYPERGLYCEMIA HPI: HPI: Patient is a 70-year-old male who presents with hyperglycemia. Patient came from Dr. Mejia's office due to blood sugar being too high. Patient states that his blood sugar was 478 at his doctor's office. Blood sugar on arrival was 127. Patient does report he has felt more tired, short of breath, cough. Denies recent illness. Denies fever. "I was admitted last Saturday for a blood transfusion due to anemia". (ISRAEL HILL APRN) Review of Systems: Review of Systems: Constitutional: Denies fever or chills Eyes: Denies change in visual acuity HENT: Denies nasal congestion or sore throat Respiratory: Reports cough and shortness of breath Cardiovascular: Denies chest pain or edema GI: Denies abdominal pain, nausea, vomiting, bloody stools or diarrhea : Denies dysuria Musculoskeletal: Denies back pain or joint pain Integument: Denies rash Neurologic: Denies headache, focal weakness or sensory changes Endocrine: Denies polyuria or polydipsia Lymphatic: Denies swollen glands Psychiatric: Denies depression or anxiety (ISRAEL HILL APRN) Current Medications: Current Meds: Current Medications Medications (Trade) Dose Ordered Sig/Claudia Start Time Stop Time Status Last Admin Dose Admin Sodium Chloride 1,000 ml @ 1,000 mls/hr 1X ONCE 02/02/21 18:00 02/02/21 18:59 DC 02/02/21 18:09 1,000 MLS/HR (ISRAEL HILL APRN) Allergies: Allergies: Allergies Coded Allergies Type Severity Reaction Last Updated Verified Sulfa (Sulfonamide Antibiotics) Allergy Intermediate 08/28/20 No liraglutide Allergy Intermediate 08/28/20 No quinine Allergy Intermediate 08/28/20 Yes (ISRAEL HILL APRN) Physical Exam: PE: Constitutional: Well developed, well nourished, no acute distress, non-toxic appearance. [] HENT: Normocephalic, atraumatic, bilateral external ears normal, oropharynx moist, no oral exudates, nose normal. [] Eyes: PERRLA, EOMI, conjunctiva normal, no discharge. [] Neck: Normal range of motion, no tenderness, supple, no stridor. [] Cardiovascular:Heart rate regular rhythm, no murmur [] Lungs & Thorax: Bilateral breath sounds clear to auscultation [] Abdomen: Bowel sounds normal, soft, no tenderness, no masses, no pulsatile masses. [] Skin: Warm, dry, no erythema, no rash. [] Back: No tenderness, no CVA tenderness. [] Extremities: No tenderness, no cyanosis, no clubbing, ROM intact, no edema. [] Neurologic: Alert and oriented X 3, normal motor function, normal sensory function, no focal deficits noted. [] Psychologic: Affect normal, judgement normal, mood normal. [] (ISRAEL HILL APRN) Current Patient Data: Labs: Laboratory Tests Test 02/02/21 17:40 02/02/21 17:53 02/02/21 18:28 White Blood Count 8.4 x10^3/uL (4.0-11.0) Red Blood Count 2.25 x10^6/uL (4.30-5.70) L Hemoglobin 6.6 g/dL (13.0-17.5) *L Hematocrit 20.8 % (39.0-53.0) L Mean Corpuscular Volume 92 fL (79-100) Mean Corpuscular Hemoglobin 29 pg (25-35) Mean Corpuscular Hemoglobin Concent 32 g/dL (31-37) Red Cell Distribution Width 18.6 % (11.5-14.5) H Platelet Count 203 x10^3/uL (140-400) Neutrophils (%) (Auto) 73 % (31-73) Lymphocytes (%) (Auto) 17 % (24-48) L Monocytes (%) (Auto) 8 % (0-9) Eosinophils (%) (Auto) 2 % (0-3) Basophils (%) (Auto) 1 % (0-3) Neutrophils # (Auto) 6.2 x10^3uL (1.8-7.7) Lymphocytes # (Auto) 1.4 x10^3/uL (1.0-4.8) Monocytes # (Auto) 0.7 x10^3/uL (0.0-1.1) Eosinophils # (Auto) 0.1 x10^3/uL (0.0-0.7) Basophils # (Auto) 0.0 x10^3/uL (0.0-0.2) Prothrombin Time 11.1 SEC (9.4-11.4) Prothrombin Time INR 1.1 (0.9-1.1) Sodium Level 136 mmol/L (136-145) Potassium Level 4.5 mmol/L (3.5-5.1) Chloride Level 99 mmol/L (98-107) Carbon Dioxide Level 37 mmol/L (21-32) H Anion Gap 0 (6-14) L Blood Urea Nitrogen 52 mg/dL (8-26) H Creatinine 1.4 mg/dL (0.7-1.3) H Estimated GFR (Cockcroft-Gault) 50.2 BUN/Creatinine Ratio 37 (6-20) H Glucose Level 135 mg/dL (70-99) H Calcium Level 8.4 mg/dL (8.5-10.1) L Total Bilirubin 0.3 mg/dL (0.2-1.0) Aspartate Amino Transferase (AST) 24 U/L (15-37) Alanine Aminotransferase (ALT) 17 U/L (16-63) Alkaline Phosphatase 74 U/L (46-116) Total Protein 7.4 g/dL (6.4-8.2) Albumin 2.8 g/dL (3.4-5.0) L Albumin/Globulin Ratio 0.6 (1.0-1.7) L Glucose (Fingerstick) 127 mg/dL (70-99) H Urine Collection Type Unknown Urine Color Yellow Urine Clarity Clear Urine pH 6.5 Urine Specific [place] 1.015 Urine Protein Neg (NEG-TRACE) Urine Glucose (UA) Neg mg/dL (NEG) Urine Ketones (Stick) Neg mg/dL (NEG) Urine Blood Neg (NEG) Urine Nitrite Neg (NEG) Urine Bilirubin Neg (NEG) Urine Urobilinogen Dipstick 1.0 mg/dL (0.2 mg/dL) Urine Leukocyte Esterase Trace (NEG) Urine RBC 0 /HPF (0-2) Urine WBC Rare /HPF (0-4) Urine Squamous Epithelial Cells Occ /LPF Urine Bacteria 0 /HPF (0-FEW) Vital Signs: Vital Signs Date Time Temp Pulse Resp B/P (MAP) Pulse Ox O2 Delivery O2 Flow Rate FiO2 02/02/21 18:12 72 16 139/94 (109) 100 Nasal Cannula 3.0 02/02/21 17:48 98.9 (ISRAEL HILL APRN) EKG: EKG: Sinus rhythm. Heart rate [address] elevation or depression. [] (ISRAEL HILL APRN) Radiology/Procedures: Radiology/Procedures: [] (ISRAEL HILL APRN) Heart Score: C/O Chest Pain: No Risk Factors: Risk Factors: DM, Current or recent (<one month) smoker, HTN, HLP, family history of CAD, obesity. Risk Scores: Score 0 - 3: 2.5% MACE over next 6 weeks - Discharge Home Score 4 - 6: 20.3% MACE over next 6 weeks - Admit for Clinical Observation Score 7 - 10: 72.7% MACE over next 6 weeks - Early Invasive Strategies (ISRAEL HILL APRN) Course & Med Decision Making: Course & Med Decision Making Pertinent Labs and Imaging studies reviewed. (See chart for details) [] 70-year-old male presents from Dr. Minor's office for hyperglycemia. Patient states his blood sugar was [address] Minor's office. Upon arrival blood sugar was 127. Patient also reports he has felt more lethargic and had a cough recently. Patient is afebrile. Patient states he was admitted last Saturday for a blood transfusion due to anemia. Patient is on 6 L nasal cannula at home. Patient is hemodynamically stable. Hemoglobin 6.6. Hematocrit 20.8. BUN 52, creatinine 1.2. Discussed results with patient. Informed patient he will need to be admitted for further management and blood transfusion. Patient is okay with admission plan and blood transfusion. 2 L PRBC ordered to be infused. Spoke with Dr. Hernández regarding admission. Dr. Le will accept patient at [facility] for anemia. (ISRAEL HILL APRN) Dragon Disclaimer: Dragon Disclaimer: This electronic medical record was generated, in whole or in part, using a voice recognition dictation system. (ISRAEL HILL APRN) Departure Departure: Impression: Primary Impression: Anemia Qualified Codes: D64.9 - Anemia, unspecified Additional Impression: Hyperglycemia Disposition: ADMITTED INPATIENT Admitting Physician: Tia Le (ISRAEL HILL APRN) Condition: STABLE Referrals: MONET MINOR MD (PCP) Attending Signature Attending Signature I have participated in the care of this patient and I have reviewed and agree with all pertinent clinical information above including history, exam, and recommendations. (JJ PIERRE MD) ISRAEL HILL APRN Feb 02, 2021 19:12 JJ PIERRE MD Feb 03, 2021 09:09
[2021-02-02 22:32] VITALS: BP 120/67
[2021-02-02 23:10] VITALS: BP 113/65
[2021-02-02 23:32] VITALS: BP 138/74
[2021-02-03] VITALS (11 sets, daily range): BP systolic 116–158; BP diastolic 62–83
[2021-02-03 06:52] LABS: BASO % 0 % (0-3); EOS # 0.1 x10^3/uL (0.0-0.7); EOS % 2 % (0-3); LYMPH # 1.2 x10^3/uL (1.0-4.8); LYMPH % 14 % (24-48); MEAN CORPUSCULAR HEMOGLOBIN 29 pg (25-35); MEAN CORPUSCULAR HGB CONC 31 g/dL (31-37); MEAN CORPUSCULAR VOLUME 93 fL (79-100); MONO # 0.7 x10^3/uL (0.0-1.1); MONO % 8 % (0-9); NEUT # 6.4 x10^3uL (1.8-7.7); NEUT % 76 % (31-73); PLATELET COUNT 209 x10^3/uL (140-400); RED BLOOD COUNT 2.38 x10^6/uL (4.30-5.70); RED CELL DISTRIBUTION WIDTH 18.6 % (11.5-14.5); WHITE BLOOD COUNT 8.4 x10^3/uL (4.0-11.0)
[2021-02-03 07:02] LABS: ALBUMIN 2.7 g/dL (3.4-5.0); ALBUMIN/GLOBULIN RATIO 0.6 (1.0-1.7); CREATININE 1.3 mg/dL (0.7-1.3); GFR 54.7; POTASSIUM 4.4 mmol/L (3.5-5.1); TOTAL BILIRUBIN 0.4 mg/dL (0.2-1.0); TOTAL PROTEIN 7.2 g/dL (6.4-8.2)
[2021-02-03 07:08] LABS: HEMOGLOBIN 6.9 g/dL (13.0-17.5)
[2021-02-03] MEDS ORDERED: PROMETH HCL PO SCH (07:15)
[2021-02-03] MEDS ORDERED: tiZANidine 4 MG TABLET. PO PRN (07:15)
[2021-02-03] MEDS ORDERED: D METHORPHAN HB PO SCH (07:15)
[2021-02-03] MEDS: POTASSIUM CHLORIDE 10 MEQ TABLET.ER. PO SCH (08:00)
[2021-02-03 08:08] LABS: % BANDS 1 % (0-9); % EOS 2 % (0-5); % LYMPHS 21 % (24-48); % MONOS 7 % (0-10); % SEGS 69 % (35-66); NUCLEATED RBC 1; PLT ESTIMATE ADEQUATE (ADEQUATE)
[2021-02-03 08:09] LABS: POLYCHROMASIA SLIGHT
[2021-02-03] MEDS: metFORMIN 500 MG TABLET PO SCH ×3 (08:45→17:18)
[2021-02-03] MEDS: QUEtiapine 50 MG TABLET. PO SCH ×3 (08:45→21:39)
[2021-02-03] MEDS: ARIPiprazole 10 MG TABLET PO SCH (08:45)
[2021-02-03] MEDS: METHADONE 5 MG TABLET. PO SCH ×2 (08:45→21:40)
[2021-02-03] MEDS: ASPIRIN CHEWABLE 81 MG TABLET. PO SCH (08:45)
[2021-02-03] MEDS: MAGNESIUM CHLORIDE ER 64 MG TABLET.ER PO SCH (08:45)
[2021-02-03] MEDS: MULTIVITAMIN with MINERAL TABLET. PO SCH (08:45)
[2021-02-03] MEDS: LINAGLIPTIN 5 MG TABLET PO SCH (08:45)
[2021-02-03] MEDS: DULoxetine HCL 60 MG CAPSULE.DR PO SCH ×2 (08:45→21:39)
[2021-02-03] MEDS: amLODIPine BESYLATE 10 MG TABLET PO SCH (08:46)
[2021-02-03] MEDS: ALLOPURINOL 300 MG TABLET. PO SCH (08:46)
[2021-02-03] MEDS: LISINOPRIL 20 MG TABLET PO SCH (08:46)
[2021-02-03] MEDS: FLUTICASONE 50MCG/NASAL SPRAY 16GM BOTTLE. NS SCH ×2 (08:47→21:40)
[2021-02-03] MEDS: BUMETANIDE 1 MG TABLET PO SCH ×2 (08:47→22:43)
[2021-02-03] MEDS: NALOXEGOL OXALATE 25 MG TABLET. PO SCH (08:48)
[2021-02-03] MEDS: FENOFIBRATE NANOCRYSTALLIZED 48 MG TABLET PO SCH (08:48)
[2021-02-03] MEDS: IPRATRPIUM/ALBUTEROL 0.5/2.5MG 3 ML NEBU. NEB SCH ×3 (08:55→20:14)
[2021-02-03] MEDS ORDERED: NON FORMULARY ITEM (Glucosamine/D3/Boswellia Serra (Osteo Bi-Flex Caplet) 1 EACH) PO SCH (09:00)
[2021-02-03] MEDS ORDERED: PUMPKIN SEED OIL PO SCH (09:00)
[2021-02-03] MEDS ORDERED: SAW PALMETTO PO SCH (09:00)
[2021-02-03] MEDS ORDERED: NON FORMULARY ITEM (Prednisone 50 MG) PO SCH (09:00)
[2021-02-03] MEDS ORDERED: DOXYCYCLINE HYCLATE 100 MG TABLET PO SCH (09:00)
[2021-02-03] MEDS ORDERED: NON FORMULARY ITEM (Biotin 5,000 MCG) PO SCH (09:00)
[2021-02-03] MEDS: INSULIN LISPRO 300 UNITS/3 ML VIAL. SQ SCH ×3 (09:47→17:20)
[2021-02-03 11:01] LABS: FECAL OB PT NEGATIVE (NEG)
[2021-02-03 16:33] LABS: BASO % 0 % (0-3); EOS # 0.1 x10^3/uL (0.0-0.7); EOS % 1 % (0-3); HEMATOCRIT 24.7 % (39.0-53.0); HEMOGLOBIN 7.8 g/dL (13.0-17.5); LYMPH # 1.3 x10^3/uL (1.0-4.8); LYMPH % 14 % (24-48); MEAN CORPUSCULAR HEMOGLOBIN 29 pg (25-35); MEAN CORPUSCULAR HGB CONC 32 g/dL (31-37); MEAN CORPUSCULAR VOLUME 93 fL (79-100); MONO # 0.8 x10^3/uL (0.0-1.1); MONO % 8 % (0-9); NEUT # 6.9 x10^3uL (1.8-7.7); NEUT % 76 % (31-73); PLATELET COUNT 223 x10^3/uL (140-400); RED BLOOD COUNT 2.65 x10^6/uL (4.30-5.70); RED CELL DISTRIBUTION WIDTH 17.5 % (11.5-14.5)
--- NOTE | 2021-02-03 17:02 | HP ---
ADMIT DATE: 02/02/2021 HISTORY OF PRESENT ILLNESS: The patient is a 70-year-old male patient who presented to the Emergency Room with a complaint of hyperglycemia. He came from Dr. Minor's office due to blood sugar being too high. The patient stated his blood sugar was 478 at his doctor's office. Blood sugar on arrival was only 127. The patient does report that he has felt more tired and short of breath, cough. Denies any recent illness. Denies fever. He stated that he was admitted last Saturday for blood transfusion due to anemia. The patient was extensively investigated in the Emergency Room and has had lab work and imaging studies. His lab work showed that his hemoglobin was 6.6, hematocrit 20.8 with normal white cell count and platelets. His chemistry showed that he was dehydrated, BUN of 52, creatinine 1.4. His prothrombin time and INR were normal. Urinalysis was essentially unremarkable, and his coronavirus by PCR was negative. The patient was admitted, and we typed and crossed and transfused him 1 unit of blood, and we will monitor him closely. PAST MEDICAL HISTORY: Significant for type 2 diabetes mellitus, hypertension, hyperlipidemia, coronary artery disease status post myocardial infarction, status post stent deployment x 5. He is known to have COPD, on oxygen at 6 liters per nasal cannula, atrial fibrillation or multi atrial tachycardia. He is also known to have morbid obesity and obstructive sleep apnea, on BiPAP at home. PAST SURGICAL HISTORY: Significant for PCI and stent deployment x 5. Has bilateral cataract extractions. Has had a back surgery. He underwent colonoscopy and esophagogastroduodenoscopy. ALLERGIES: HE IS ALLERGIC TO SULFA DRUGS, LIRAGLUTIDE, AND QUININE. MEDICATIONS: He is currently on following medications: He is on ipratropium bromide/albuterol sulfate, DuoNeb 0.5/2.5 mg 3 mL 4 times a day, albuterol sulfate 1 puff every 4 hours, tizanidine 4 mg twice a day, fenofibrate 48 mg once a day, amlodipine besylate 10 mg once a day, lisinopril 20 mg once a day, aspirin 81 mg once a day, methadone 10 mg twice a day, duloxetine 60 mg twice a day, aripiprazole 30 mg daily. He is on quetiapine fumarate 50 mg 3 times a day, potassium chloride 10 mEq daily. He is on bumetanide 1 mg tablet daily. He is on promethazine and dextromethorphan syrup 5 mL every 4 hours, fluticasone propionate 2 puffs by inhaler twice a day, magnesium oxide 400 mg once a day, omeprazole 40 mg daily. He is on Movantik 25 mg daily, prednisone 50 mg daily, metformin 500 mg 3 times a day with meals and he is on Tradjenta 5 mg daily. He is on human insulin, Humulin 70/30, he takes 40 units daily with breakfast, Humulin 70/30 daily with lunch and Humulin 70/30, 50 units daily with supper. He is on Biotin 5000 mcg tablet 3 times a day, multivitamin 1 tablet once a day, allopurinol 300 mg once a day, glucosamine for Osteo Bi-Flex capsules or tablets once a day, pumpkin seed oil, saw palmetto 160 mg once a day. He is on Crestor 20 mg at bedtime. FAMILY HISTORY: Has 1 sister, older at the age of 79 and has some joint problems. Both parents at the age of 76 because of CVA. SOCIAL HISTORY: He is . His son was killed, and he has 3 stepchildren. He quit smoking 3 years ago. He does not drink alcohol or use any recreational drugs. 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 REVIEW OF SYSTEMS: The patient denied any blurring of vision, cataracts, glaucoma or macular degeneration. Denied any earache, tinnitus or sensorineural deafness. Did get some nosebleed. Denied any postnasal drip or stuffy nose. Denied any sore throat, sore tongue, toothache, hoarseness of voice or difficulty swallowing. Denied any nausea, vomiting, diarrhea or constipation. Denied any hematemesis, melena, but did complain of hematochezia. Denied any dysuria, frequency or hematuria. Denied any chest pain. Did complain of shortness of breath, orthopnea and occasional paroxysmal nocturnal dyspnea. He sleeps in his recliner as he has a BiPAP machine for obstructive sleep apnea. PHYSICAL EXAMINATION: GENERAL: On arrival to the Emergency Room, the patient looked pale, not jaundiced, cyanosis or thyromegaly. No jugular venous distention. No lower limb edema. VITAL SIGNS: His heart rate was 79, blood pressure was 124/69, temperature was 98.9, respiratory rate was 18 and oxygen saturation was 98% on 6 liters of oxygen. HEAD, EYES, EARS, NOSE AND THROAT: Showed he is normocephalic, atraumatic. NECK: Supple. HEART: Showed normal first and second heart sounds. No gallop, rub or murmur. CHEST: Showed central trachea, equal bilateral chest expansion, air entry, vesicular breath sounds. I could not appreciate any crepitation or rhonchi. ABDOMEN: Distended, soft, nontender. NEUROLOGIC: He was awake, alert, responding appropriately. All cranial nerves intact. He moves extremities without difficulty, ambulates with a walker. LABORATORY DATA: His lab work on admission showed a white cell count of 8400, hemoglobin 6.6, hematocrit 20.8, MCV 92 and platelet count 203,000. His prothrombin time was 11.1, INR 1.1. His chemistry showed a serum sodium 136, potassium 4.5, chloride 99, bicarbonate 37, anion gap of 0, BUN 52, creatinine 1.4. Estimated GFR was 50 mL per minute. His glucose 135, calcium was 8.4. Total bilirubin, AST, ALT, alkaline phosphatase were normal. Total protein was 7.4, albumin was 2.8. Urinalysis essentially unremarkable. His stool for occult blood was negative, and his coronavirus by PCR was negative. ASSESSMENT AND PLAN: In summary, this is a 70-year-old male patient who was admitted with anemia as well as hyperglycemia, although surprisingly, his blood sugar was only 127 mg on arrival to the Emergency Room. We will type and cross and transfuse him 1 unit of packed RBCs, and I will contact Dr. Minor to get some more information about him. KAMINI/MYNOR LINDSAY: El TID: [id number]
[2021-02-03] MEDS ORDERED: ATORVASTATIN CALCIUM 20 MG TABLET PO SCH (21:00)
--- NOTE | 2021-02-04 01:25 | PN ---
DATE: 02/03/2021 SUBJECTIVE: The patient is a 70-year-old male patient with a multitude of medical problems who apparently is on Xarelto for multifocal atrial tachycardia/atrial fibrillation. He has also had drug-eluting stents to his right coronary artery for which he is on prasugrel and who came in yesterday with anemia. He did receive 1 unit of packed RBCs and his H and H has risen from 6.6 and 20.8 to 6.9 and 22.0. He apparently continued to have blood per rectum, although the sample that was taken from his stool this morning was negative for occult blood. When I saw him this afternoon, his main complaint was pain in his legs and was very restless and unable to find a comfortable position. I did speak with Dr. Minor and he gave me all this information and faxed the latest evaluation at [facility]. PHYSICAL EXAMINATION: GENERAL: When I examined him, he was pale, not jaundiced, cyanosis or thyromegaly. No jugular venous distention. No limb edema. VITAL SIGNS: Her heart rate was 86, blood pressure was 120/68, temperature was 99.1, respiratory rate was 20 and oxygen saturation was 99% on 6 liters of oxygen. HEAD, EYES, EARS, NOSE, AND THROAT: Normocephalic, atraumatic. NECK: Supple. HEART: Showed normal first and second heart sounds, no gallop, rub or murmur. CHEST: Clear to auscultation, no crepitation or rhonchi. ABDOMEN: Distended, soft, nontender, no guarding or rigidity. No organomegaly. All hernial orifice intact. Bowel sounds normal. NEUROLOGIC: He was awake, alert, responding appropriately. All cranial nerves intact. He moves extremities without difficulty, ambulates with a walker. LABORATORY WORK: This morning showed a white cell count of 8400, hemoglobin 6.9, hematocrit 22, MCV 93, and platelet count of 209,000 with normal manual differential. His chemistry showed a serum sodium 138, potassium 4.4, chloride 98, bicarbonate 37, anion gap of 3, BUN 40, creatinine 1.3. Estimated GFR was 54 mL per minute. His glucose 156, calcium was 8. Total bilirubin, AST, ALT, alkaline phosphatase were normal. Total protein 7.2, albumin was 2.7. ASSESSMENT AND PLAN: Blood loss anemia, status post 1 unit of packed RBCs. He is scheduled to receive another one this afternoon. His prasugrel and Xarelto were on hold. I will check also his iron stores and vitamin B12. I would consult the maid supervisor as I am not really sure as to when he had his drug-eluting stent. It was actually done on 09/19/2020 and we will discuss whether he needs to continue on Effient and Xarelto. KAMINI/CORINE DR: El TID: [id number]
[2021-02-04 05:22] VITALS: BP 147/64
[2021-02-04] MEDS: IPRATRPIUM/ALBUTEROL 0.5/2.5MG 3 ML NEBU. NEB SCH ×4 (05:45→15:33)
[2021-02-04] MEDS ORDERED: PANTOPRAZOLE 40 MG TABLET. PO SCH (07:30)
[2021-02-04] MEDS: POTASSIUM CHLORIDE 10 MEQ TABLET.ER. PO SCH (08:00)
[2021-02-04] MEDS: ASPIRIN CHEWABLE 81 MG TABLET. PO SCH (08:52)
[2021-02-04] MEDS: LINAGLIPTIN 5 MG TABLET PO SCH (08:52)
[2021-02-04] MEDS: ARIPiprazole 10 MG TABLET PO SCH (08:52)
[2021-02-04] MEDS: LISINOPRIL 20 MG TABLET PO SCH (08:52)
[2021-02-04] MEDS: DULoxetine HCL 60 MG CAPSULE.DR PO SCH (08:52)
[2021-02-04] MEDS: QUEtiapine 50 MG TABLET. PO SCH ×2 (08:53→15:19)
[2021-02-04] MEDS: MAGNESIUM CHLORIDE ER 64 MG TABLET.ER PO SCH (08:53)
[2021-02-04] MEDS: ALLOPURINOL 300 MG TABLET. PO SCH (08:53)
[2021-02-04] MEDS: BUMETANIDE 1 MG TABLET PO SCH (08:53)
[2021-02-04] MEDS: MULTIVITAMIN with MINERAL TABLET. PO SCH (08:53)
[2021-02-04] MEDS: metFORMIN 500 MG TABLET PO SCH ×3 (08:53→17:42)
[2021-02-04] MEDS: METHADONE 5 MG TABLET. PO SCH (08:53)
[2021-02-04] MEDS: FENOFIBRATE NANOCRYSTALLIZED 48 MG TABLET PO SCH (08:54)
[2021-02-04] MEDS: amLODIPine BESYLATE 10 MG TABLET PO SCH (08:54)
[2021-02-04] MEDS: FLUTICASONE 50MCG/NASAL SPRAY 16GM BOTTLE. NS SCH (08:55)
[2021-02-04] MEDS: INSULIN LISPRO 300 UNITS/3 ML VIAL. SQ SCH ×3 (08:56→17:46)
[2021-02-04 09:52] LABS: CALCIUM 7.8 mg/dL (8.5-10.1); CREATININE 1.3 mg/dL (0.7-1.3); GFR 54.7; POTASSIUM 3.7 mmol/L (3.5-5.1)
[2021-02-04 10:18] LABS: HEMOGLOBIN 6.9 g/dL (13.0-17.5)
[2021-02-04] MEDS: NALOXEGOL OXALATE 25 MG TABLET. PO SCH (10:22)
[2021-02-04 11:21] VITALS: BP 113/64
[2021-02-04 13:40] LABS: FECAL OB PT POSITIVE (NEG)
[2021-02-04 15:43] VITALS: BP 122/75
--- NOTE | 2021-02-04 16:10 | PDOC2 ---
CONSULT DOS: DATE: 02/04/21 TIME: 16:04 Reason for Consult: Anemia and history of coronary artery disease, stenting and possible atrial fibrillation. Referring Physician: Dr. Le Chief Complaint Fatigue and mild shortness of breath Source: Chart review, Patient Problem List Problems Medical Problems: (1) Anemia Status: Acute (2) Hyperglycemia Status: Acute History of Present Illness The patient is a 70-year-old male who was sent from his primary's office to the emergency room yesterday secondary to an elevated glucose level. During his work-up he was found to have significant anemia with a hemoglobin hematocrit of 6.6 and 20.8. He apparently has been recently worked up for this and he was admitted for further treatment and evaluation. He received transfusion and this morning states he is feeling somewhat better but still weak. He is both on anticoagulants apparently for previous atrial fibrillation or possible paroxysmal atrial fibrillation as well as antiplatelet medications secondary to coronary disease with reported stent placement in August 2010. He denies chest pain. He denies dizziness. Cardiovascular: AFIB, CAD, HTN, hyperipidemia Pulmonary: COPD GI: GI bleed Endocrine: Diabetes Past Surgical History: Other (Coronary artery disease with recent stent placement reportedly in August of this year.) Family History: Heart Disease Smoke: 1 pack per day ALCOHOL: none Current Medications Current Medications Sodium Chloride 1,000 ml @ 1,000 mls/hr 1X ONCE IV Last administered on 02/02/21at 18:09; Start 02/02/21 at 18:00; Stop 02/02/21 at 18:59; Status DC Allopurinol (Zyloprim) 300 mg DAILY PO Last administered on 02/04/21at 08:53; Start 02/03/21 at 09:00 Amlodipine Besylate (Norvasc) 10 mg DAILY PO Last administered on 02/04/21at 08:54; Start 02/03/21 at 09:00 Aspirin (Aspirin Chewable) 81 mg DAILY PO Last administered on 02/04/21at 08:52; Start 02/03/21 at 09:00 Bumetanide (Bumex) 2 mg BID PO Last administered on 02/04/21at 08:53; Start 02/03/21 at 09:00 Doxycycline Hyclate (Vibra-Tab) 100 mg BID PO ; Start 02/03/21 at 09:00; Stop 02/03/21 at 15:48; Status DC Duloxetine HCl (Cymbalta) 60 mg BID PO Last administered on 02/04/21 08:52; Start 02/03/21 at 09:00 Albuterol/ Ipratropium (Duoneb) 3 ml QID NEB Last administered on 02/04/21at 15:33; Start 02/03/21 at 09:00 Linagliptin (Tradjenta) 5 mg DAILY PO Last administered on 02/04/21 08:52; Start 02/03/21 at 09:00 Lisinopril (Prinivil) 20 mg DAILY PO Last administered on 02/04/21 08:52; Start 02/03/21 at 09:00 Metformin HCl (Glucophage) 500 mg TIDWMEALS PO Last administered on 02/04/21 12:33; Start 02/03/21 at 08:00 Naloxegol (Movantik) 25 mg DAILY PO Last administered on 02/04/21 10:22; Start 02/03/21 at 09:00 Quetiapine Fumarate (SEROquel) 50 mg TID PO Last administered on 02/04/21at 15:19; Start 02/03/21 at 09:00 Tizanidine HCl (Zanaflex) 4 mg PRN BID PRN PO MUSCLE SPASM; Start 02/03/21 at 07:15 Aripiprazole (Abilify) 20 mg DAILYWBKFT PO Last administered on 02/04/21 08:52; Start 02/03/21 at 08:00 Non-Formulary Medication (Biotin ) 5,000 mcg TID PO ; Start 02/03/21 at 09:00; Status UNV Non-Formulary Medication (D-Methorphan Hb/ Prometh Hcl (Promethazine-Dm Syrup)) 5 ml PRN Q4HRS PO ; Start 02/03/21 at 07:15; Status UNV Fenofibrate (Tricor) 48 mg DAILY PO Last administered on 02/04/21 08:54; Start 02/03/21 at 09:00 Fluticasone Propionate (Flonase) 2 spray BID NS Last administered on 02/04/21 08:55; Start 02/03/21 at 09:00 Non-Formulary Medication (Glucosamine/D3/ Boswellia Fatuma (Osteo Bi-Flex Caplet)) 1 each DAILY PO ; Start 02/03/21 at 09:00; Status UNV Insulin Human Lispro (HumaLOG) 20 units DAILYWLUN SQ Last administered on 02/04/21at 12:30; Start 02/03/21 at 12:00 Insulin Human Lispro (HumaLOG) 40 units DAILYWBKFT SQ Last administered on 02/04/21at 08:56; Start 02/03/21 at 09:30 Insulin Human Lispro (HumaLOG) 50 units DAILYWSUP SQ Last administered on 02/03/21at 17:20; Start 02/03/21 at 17:00 Magnesium Chloride (Mag Delay) 64 mg DAILY PO Last administered on 02/04/21 08:53; Start 02/03/21 at 09:00 Methadone HCl (Dolophine) 10 mg BID PO Last administered on 02/04/21at 08:53; Start 02/03/21 at 09:00 Multivitamins/ Calcium (Thera-M Plus) 1 tab DAILY PO Last administered on at 08:53; Start 02/03/21 at 09:00 Pantoprazole Sodium (Protonix) 40 mg DAILYAC PO Last administered on 02/04/21 08:54; Start 02/04/21 at 07:30 Potassium Chloride (Klor-Con) 10 meq DAILYWBKFT PO Last administered on 02/04/21at 08:00; Start 02/03/21 at 08:00 Non-Formulary Medication (Prednisone ) 50 mg DAILY PO ; Start 02/03/21 at 09:00; Stop 02/03/21 at 15:49; Status DC Non-Formulary Medication (Pumpkin Seed Oil/Saw [place] (Saw [place] 160 Mg Softgel)) 160 mg DAILY PO ; Start 02/03/21 at 09:00; Status UNV Atorvastatin Calcium (Lipitor) 80 mg QHS PO Last administered on 02/03/21at 21:39; Start 02/03/21 at 21:00 Active Scripts Active Flovent 44MCG Hfa (Fluticasone Propionate) 10.6 Gm Aer.w.adap 2 Puff IH BID 30 Days Ventolin Hfa Inhaler (Albuterol Sulfate) 18 Gm Hfa.aer.ad 1 Puff IH PRN Q4HRS PRN Prednisone 50 Mg Tablet 50 Mg PO DAILY 5 Days Promethazine-Dm Syrup (D-Methorphan Hb/Prometh Hcl) 118 Ml Syrup 5 Ml PO PRN Q4HRS Doxycycline Hyclate 100 Mg Tablet 1 Tab PO BID Reported Movantik (Naloxegol Oxalate) 25 Mg Tablet 25 Mg PO DAILY Osteo Bi-Flex Caplet (Glucosamine/D3/Boswellia Fatuma) 1 Each Tablet 1 Each PO DAILY Saw [place] 160 Mg Softgel ([place]kin Seed Oil/Saw [place]) 160 Mg Capsule 160 M g PO DAILY Magnesium (Magnesium Oxide) 400 Mg Capsule 1 Cap PO DAILY Bumetanide 1 Mg Tablet 1 Tab PO DAILY Aspirin 81 Mg Tab.chew 81 Mg PO DAILY Biotin 5,000 Mcg Tab.rapdis 5,000 Mcg PO TID Potassium Chloride 10 Meq Tablet.er 10 Meq PO DAILY Tradjenta (Linagliptin) 5 Mg Tablet 1 Tab PO DAILY Crestor (Rosuvastatin Calcium) 20 Mg Tablet 20 Mg PO HS Humulin 70/30 Kwikpen (Hum Insulin Nph/Reg Insulin Hm) 100 Unit/1 Ml Insuln.pen 50 Unit SQ DAILYWSUP Humulin 70/30 Kwikpen (Hum Insulin Nph/Reg Insulin Hm) 100 Unit/1 Ml Insuln.pen 20 Unit SQ DAILYWLUN Humulin 70/30 Kwikpen (Hum Insulin Nph/Reg Insulin Hm) 100 Unit/1 Ml Insuln.pen 40 Unit SQ DAILYWBKFT Duoneb 0.5-3(2.5) Mg/3 Ml (Albuterol/Ipratropium) 3 Ml Ampul.neb 3 Ml NEB QID Amlodipine Besylate 10 Mg Tablet 1 Tab PO DAILY Lisinopril 20 Mg Tablet 1 Tab PO DAILY Fenofibrate 54 Mg Tablet 48 Mg PO DAILY Multi-Vitamin Daily (Multivitamin) 1 Each Tablet 1 Each PO DAILY LAST DOSE GIVEN: DATE: TODAY TIME: AM NEXT DOSE DUE: DATE: TOMORROW TIME: AM Tizanidine Hcl (Tizanidine HCl) 4 Mg Tablet 4 Mg PO BID PRN LAST DOSE GIVEN: DATE: TIME: NEXT DOSE DUE: DATE: TIME: Abilify (Aripiprazole) 30 Mg Tablet 1 Tab PO DAILYWBKFT LAST DOSE GIVEN: DATE: TODAY TIME: AM NEXT DOSE DUE: DATE: TOMORROW TIME: AM Seroquel (Quetiapine Fumarate) 50 Mg Tablet 50 Mg PO TID LAST DOSE GIVEN: DATE: TODAY TIME: NEXT DOSE DUE: DATE: TODAY TIME: Methadone Hcl 10 Mg Tablet 1 Tab PO BID LAST DOSE GIVEN: DATE: TODAY TIME: NEXT DOSE DUE: DATE: TODAY TIME: Metformin Hcl 500 Mg Tablet 1 Tab PO TIDWMEALS LAST DOSE GIVEN: DATE: TODAY TIME: WITH NEXT DOSE DUE: DATE: TODAY TIME: WITH Allopurinol 300 Mg Tablet 300 Mg PO DAILY LAST DOSE GIVEN: DATE: TODAY TIME: AM NEXT DOSE DUE: DATE: TOMORROW TIME: AM Omeprazole 20 Mg Capsule.dr 40 Mg PO DAILY LAST DOSE GIVEN: DATE: PROTONIX GIVEN TODAY TIME: AM NEXT DOSE DUE: DATE: TOMORROW TIME: BEFORE BREAKFAST Cymbalta (Duloxetine Hcl) 60 Mg Capsule.dr 60 Mg PO BID LAST DOSE GIVEN: DATE: TIME: AM NEXT DOSE DUE: DATE: TODAY TIME: PM Allergies: Coded Allergies: Sulfa (Sulfonamide Antibiotics) (Unverified Allergy, Intermediate, 08/28/20) liraglutide (Unverified Allergy, Intermediate, 08/28/20) quinine (Verified Allergy, Intermediate, 08/28/20) General: YES: Fatigue, Malaise General: mild distress HEENT: Atraumatic Lungs: Other (Slightly decreased breath sounds) Heart: Regular rate Abdomen: Normal bowel sounds VITALS Vital Signs Date Time Temp Pulse Resp B/P (MAP) Pulse Ox O2 Delivery O2 Flow Rate FiO2 02/04/21 15:43 98.2 89 24 122/75 (91) 93 Nasal Cannula 5.0 Labs Laboratory Tests Test 02/02/21 17:40 02/02/21 17:53 02/02/21 18:28 02/02/21 20:08 White Blood Count 8.4 x10^3/uL (4.0-11.0) Red Blood Count 2.25 x10^6/uL (4.30-5.70) Hemoglobin 6.6 g/dL (13.0-17.5) Hematocrit 20.8 % (39.0-53.0) Mean Corpuscular Volume 92 fL (79-100) Mean Corpuscular Hemoglobin 29 pg (25-35) Mean Corpuscular Hemoglobin Concent 32 g/dL (31-37) Red Cell Distribution Width 18.6 % (11.5-14.5) Platelet Count 203 x10^3/uL (140-400) Neutrophils (%) (Auto) 73 % (31-73) Lymphocytes (%) (Auto) 17 % (24-48) Monocytes (%) (Auto) 8 % (0-9) Eosinophils (%) (Auto) 2 % (0-3) Basophils (%) (Auto) 1 % (0-3) Neutrophils # (Auto) 6.2 x10^3uL (1.8-7.7) Lymphocytes # (Auto) 1.4 x10^3/uL (1.0-4.8) Monocytes # (Auto) 0.7 x10^3/uL (0.0-1.1) Eosinophils # (Auto) 0.1 x10^3/uL (0.0-0.7) Basophils # (Auto) 0.0 x10^3/uL (0.0-0.2) Prothrombin Time 11.1 SEC (9.4-11.4) Prothromb Time International Ratio 1.1 (0.9-1.1) Sodium Level 136 mmol/L (136-145) Potassium Level 4.5 mmol/L (3.5-5.1) Chloride Level 99 mmol/L (98-107) Carbon Dioxide Level 37 mmol/L (21-32) Anion Gap 0 (6-14) Blood Urea Nitrogen 52 mg/dL (8-26) Creatinine 1.4 mg/dL (0.7-1.3) Estimated GFR (Cockcroft-Gault) 50.2 BUN/Creatinine Ratio 37 (6-20) Glucose Level 135 mg/dL (70-99) Calcium Level 8.4 mg/dL (8.5-10.1) Total Bilirubin 0.3 mg/dL (0.2-1.0) Aspartate Amino Transf (AST/SGOT) 24 U/L (15-37) Alanine Aminotransferase (ALT/SGPT) 17 U/L (16-63) Alkaline Phosphatase 74 U/L (46-116) Total Protein 7.4 g/dL (6.4-8.2) Albumin 2.8 g/dL (3.4-5.0) Albumin/Globulin Ratio 0.6 (1.0-1.7) Glucose (Fingerstick) 127 mg/dL (70-99) Urine Collection Type Unknown Urine Color Yellow Urine Clarity Clear Urine pH 6.5 Urine Specific [place] 1.015 Urine Protein Neg (NEG-TRACE) Urine Glucose (UA) Neg mg/dL (NEG) Urine Ketones (Stick) Neg mg/dL (NEG) Urine Blood Neg (NEG) Urine Nitrite Neg (NEG) Urine Bilirubin Neg (NEG) Urine Urobilinogen Dipstick 1.0 mg/dL (0.2 mg/dL) Urine Leukocyte Esterase Trace (NEG) Urine RBC 0 /HPF (0-2) Urine WBC Rare /HPF (0-4) Urine Squamous Epithelial Cells Occ /LPF Urine Bacteria 0 /HPF (0-FEW) Coronavirus (COVID-19)(PCR) Negative (NEGATIVE) Test 02/02/21 22:08 02/03/21 06:20 02/03/21 07:38 02/03/21 10:45 SARS-CoV-2 Antigen (Rapid) Negative (NEGATIVE) White Blood Count 8.4 x10^3/uL (4.0-11.0) Red Blood Count 2.38 x10^6/uL (4.30-5.70) Hemoglobin 6.9 g/dL (13.0-17.5) Hematocrit 22.0 % (39.0-53.0) Mean Corpuscular Volume 93 fL (79-100) Mean Corpuscular Hemoglobin 29 pg (25-35) Mean Corpuscular Hemoglobin Concent 31 g/dL (31-37) Red Cell Distribution Width 18.6 % (11.5-14.5) Platelet Count 209 x10^3/uL (140-400) Neutrophils (%) (Auto) 76 % (31-73) Lymphocytes (%) (Auto) 14 % (24-48) Monocytes (%) (Auto) 8 % (0-9) Eosinophils (%) (Auto) 2 % (0-3) Basophils (%) (Auto) 0 % (0-3) Neutrophils # (Auto) 6.4 x10^3uL (1.8-7.7) Lymphocytes # (Auto) 1.2 x10^3/uL (1.0-4.8) Monocytes # (Auto) 0.7 x10^3/uL (0.0-1.1) Eosinophils # (Auto) 0.1 x10^3/uL (0.0-0.7) Basophils # (Auto) 0.0 x10^3/uL (0.0-0.2) Segmented Neutrophils % 69 % (35-66) Band Neutrophils % 1 % (0-9) Lymphocytes % 21 % (24-48) Monocytes % 7 % (0-10) Eosinophils % 2 % (0-5) Nucleated Red Blood Cells 1 Platelet Estimate Adequate (ADEQUATE) Large Platelets Occ Polychromasia Slight Sodium Level 138 mmol/L (136-145) Potassium Level 4.4 mmol/L (3.5-5.1) Chloride Level 98 mmol/L (98-107) Carbon Dioxide Level 37 mmol/L (21-32) Anion Gap 3 (6-14) Blood Urea Nitrogen 40 mg/dL (8-26) Creatinine 1.3 mg/dL (0.7-1.3) Estimated GFR (Cockcroft-Gault) 54.7 BUN/Creatinine Ratio 31 (6-20) Glucose Level 256 mg/dL (70-99) Calcium Level 8.0 mg/dL (8.5-10.1) Total Bilirubin 0.4 mg/dL (0.2-1.0) Aspartate Amino Transf (AST/SGOT) 15 U/L (15-37) Alanine Aminotransferase (ALT/SGPT) 16 U/L (16-63) Alkaline Phosphatase 70 U/L (46-116) Total Protein 7.2 g/dL (6.4-8.2) Albumin 2.7 g/dL (3.4-5.0) Albumin/Globulin Ratio 0.6 (1.0-1.7) Glucose (Fingerstick) 207 mg/dL (70-99) Stool Occult Blood Negative (NEG) Test 02/03/21 11:45 02/03/21 15:20 02/03/21 16:58 02/03/21 20:30 Glucose (Fingerstick) 122 mg/dL (70-99) 140 mg/dL (70-99) 70 mg/dL (70-99) White Blood Count 9.0 x10^3/uL (4.0-11.0) Red Blood Count 2.65 x10^6/uL (4.30-5.70) Hemoglobin 7.8 g/dL (13.0-17.5) Hematocrit 24.7 % (39.0-53.0) Mean Corpuscular Volume 93 fL (79-100) Mean Corpuscular Hemoglobin 29 pg (25-35) Mean Corpuscular Hemoglobin Concent 32 g/dL (31-37) Red Cell Distribution Width 17.5 % (11.5-14.5) Platelet Count 223 x10^3/uL (140-400) Neutrophils (%) (Auto) 76 % (31-73) Lymphocytes (%) (Auto) 14 % (24-48) Monocytes (%) (Auto) 8 % (0-9) Eosinophils (%) (Auto) 1 % (0-3) Basophils (%) (Auto) 0 % (0-3) Neutrophils # (Auto) 6.9 x10^3uL (1.8-7.7) Lymphocytes # (Auto) 1.3 x10^3/uL (1.0-4.8) Monocytes # (Auto) 0.8 x10^3/uL (0.0-1.1) Eosinophils # (Auto) 0.1 x10^3/uL (0.0-0.7) Basophils # (Auto) 0.0 x10^3/uL (0.0-0.2) Test 02/03/21 22:30 02/04/21 07:40 02/04/21 09:30 02/04/21 11:54 Glucose (Fingerstick) 127 mg/dL (70-99) 249 mg/dL (70-99) 223 mg/dL (70-99) Hemoglobin 6.9 g/dL (13.0-17.5) Hematocrit 22.0 % (39.0-53.0) Sodium Level 134 mmol/L (136-145) Potassium Level 3.7 mmol/L (3.5-5.1) Chloride Level 100 mmol/L (98-107) Carbon Dioxide Level 32 mmol/L (21-32) Anion Gap 2 (6-14) Blood Urea Nitrogen 29 mg/dL (8-26) Creatinine 1.3 mg/dL (0.7-1.3) Estimated GFR (Cockcroft-Gault) 54.7 Glucose Level 373 mg/dL (70-99) Calcium Level 7.8 mg/dL (8.5-10.1) Iron Level 22 ug/dL (65-175) Total Iron Binding Capacity 348 ug/dL (250-450) Iron Saturation 6 % (15-34) Ferritin 37 ng/mL (26-388) Test 02/04/21 12:45 Stool Occult Blood Positive (NEG) Images CTA of the abdomen is pending. Assessment/Plan 1. Anemia. Initial hemoglobin hematocrit as above is 6.6 and 20.8. Being transfused and work-up by the primary service. From a cardiac viewpoint the patient is apparently on anticoagulation secondary to a history of atrial fibrillation or possible paroxysmal atrial fibrillation. At this time I believe it is appropriate to hold anticoagulation in the setting of his severe anemia. Additionally the patient is on antiplatelet medications with reported stent placement in August of this year. Withhold antiplatelet medications today. Would recheck lab in the morning and reevaluate when we can reasonably restart his antiplatelet medications. 2. Coronary artery disease. No chest pain. Recent stenting as above. 3. History of atrial fibrillation. Patient is not in atrial fibrillation at this time. We will attempt to find further records. Anticoagulation as above. 4. Hyperlipidemia. Will check lab and monitor. 5. Hypertension. Continue present treatments and monitor. 6. COPD. 7. Diabetes mellitus. Patient continues to smoke 1 pack of cigarettes per day. RAMO STEWART MD Feb 04, 2021 16:10
--- NOTE | 2021-02-04 18:29 | RAD ---
CT chest abdomen and pelvis without contrast: History: Blood loss and anemia Axial helical images of the chest, abdomen and pelvis were obtained without IV contrast. CT chest without contrast: Comparison: February 05, 2020 There is no mediastinal lymphadenopathy or hematoma. There is no hilar lymphadenopathy. There is a small caliber chest tube posteriorly in the pleural space on the left. There are few small pulmonary nodules the right. There is diffuse emphysematous changes. There is bilateral gynecomastia . There is coronary artery calcifications. Impression: 1. A few subcentimeter pulmonary nodules on the right. Recommend 6 month follow-up CT chest without c ontrast. 2. Small caliber chest tube in the pleural space posteriorly left was seen previously. 3. Diffuse emphysematous changes seen previously. 4. Worsening gynecomastia. End Impression CT ABDOMEN and pelvis without IV CONTRAST: Findings: There is calcination the pink of the aorta and great vessels without aneurysm. Liver: Unremarkable Spleen: Unremarkable Pancreas: Unremarkable Adrenal Glands: Nodularity left adrenal is consistent with an adrenal adenoma and was seen previously Kidneys: Unremarkable Evaluation of stomach and bowel is limited without oral contrast. Evaluation of solid organs is limit ed without IV contrast. There is a single borderline sized lymph node along the iliac chain bilaterally. The gallbladder is collapsed but appears normal. The colon is collapsed limiting its evaluation. The appendix is not well seen. There is no free air. There is no free fluid. The bladder appears normal. Impression: Minimal lymphadenopathy could be reactive. No acute findings. End impression PQRS Compliance Statement: One or more of the following individualized dose reduction techniques were utilized for this examinat ion: 1. Automated exposure control 2. Adjustment of the mA and/or kV according to patient size 3. Use of iterative reconstruction technique Electronically signed by: Sae Lujan III, MD (02/04/2021 6:27 PM) [facility]
--- NOTE | 2021-02-04 23:13 | PN ---
DATE: 02/04/2021 SUBJECTIVE: The patient is resting, slightly up in bed, continued to complain of shortness of breath, but denied any chest pain. Denied any nausea, vomiting. Denied any hematemesis, melena or hematochezia. He received so far 2 units of packed RBCs and his hemoglobin is down to 6.9 and hematocrit 22 without any obvious source of bleeding. His first stool for occult blood was negative. The second was positive. He was on Xarelto as well as Effient for a drug-eluting stent deployment that was used for his right coronary artery in August of this year and actually ____. PHYSICAL EXAMINATION: GENERAL: When I saw him this afternoon, he was pale, but no jaundice, cyanosis, no lymphadenopathy, no thyromegaly, no jugular venous distention. No limb edema. VITAL SIGNS: Her heart rate was 74, blood pressure was 113/64, temperature was 98.4, respiratory rate was 24 and oxygen saturation was actually 95% on 5 liters of oxygen. HEAD, EYES, EARS, NOSE, AND THROAT: Normocephalic, atraumatic. NECK: Supple. HEART: Showed normal first and second heart sounds. No gallop or murmur. CHEST: Shows central trachea, equally reduced expansion, reduced air entry. Vesicular breath sound. I could not appreciate any crepitation or rhonchi. ABDOMEN: Distended, soft, nontender. No guarding or rigidity. No organomegaly. All hernial orifice intact. Bowel sounds normal. NEUROLOGIC: He was grossly intact. His intake was 840, output was 700. LABORATORY DATA: His labs work showed a hemoglobin of 6.9, hematocrit 22. His prothrombin time and INR are normal. Chemistry showed a serum sodium of 134, potassium 3.7, chloride 100, bicarbonate 32, anion gap of 2, BUN 29, creatinine 1.3. Estimated GFR was 55 mL per minute. His glucose was 373 and calcium was 7.8. His serum iron was 22, TIBC was 348 and iron saturation was only 6% with a normal range between 15 and 54. Serum ferritin was only 37. His second stool for occult blood was positive. ASSESSMENT: Blood loss anemia, status post 2 units of packed RBCs. Unfortunately, his H and H is down to 6.9 and 22. I did discontinue his prasugrel and Xarelto. His serum iron is low. His other medical problems include type 2 diabetes mellitus, hypertension, hyperlipidemia, coronary artery disease status post myocardial infarction, status post drug-eluting stent deployment to the right coronary artery in August of this year. He is known to have chronic obstructive pulmonary disease, on 6 liters of oxygen, atrial fibrillation/multifocal atrial tachycardia. He is also known to have morbid obesity and obstructive sleep apnea on BiPAP machine at home. PLAN: My plan is to arrange for him to have a CT scan of the chest, abdomen and pelvis to see if he has any retroperitoneal bleed as he has no active melena or hematochezia that explains this loss of blood and if the CT scan is negative, we will transfer him to [facility] to consult the GI as he might probably require both upper and lower GI endoscopy. LEA DR: El TID: [id number]
--- NOTE | 2021-02-22 13:11 | DS ---
DATE OF DISCHARGE: 02/04/2021 TRANSFER SUMMARY HOSPITAL COURSE: The patient is a 70-year-old male patient who was admitted to [facility] through the Emergency Room. He was referred to the Emergency Room by his primary care physician as his blood sugar was extremely high. His blood sugar was actually 478 mg/dL at his doctor's office. Blood sugar on arrival was only 127. The patient does report that he has felt more tired and short of breath, and had cough. Denies any recent illness. Denied any fever. He states that he was admitted last Saturday for blood transfusion due to anemia. He was extensively investigated in the Emergency Room and has had lab work and imaging studies. His lab work showed that the patient was anemic with a hemoglobin of 6.5, hematocrit 20.8 with normal white cell count and platelets. His chemistry showed that he was dehydrated with a BUN of 52, creatinine 1.4 and his prothrombin time and INR within normal limits. Urinalysis was essentially unremarkable and his coronavirus by PCR was negative. He was admitted and we did type and cross and transfused him 1 unit of packed RBCs. In fact, he did require at least 3 more units of packed RBCs while at [facility]. In consultation with the performance architect, the patient apparently was on Xarelto and he has also a drug-eluting stent to his right coronary artery placed at [facility], I believe in August of this year and Dr. Pierre recommended to discontinue Xarelto and to continue with Effient and aspirin; however, on the day of discharge, the patient again dropped his H and H to 6.9 and 22, and I did actually arrange for him to have a CT scan of the chest, abdomen and pelvis to look for any retroperitoneal hemorrhage and the impression is that his liver, spleen, pancreas, adrenal glands and kidneys are unremarkable. Evaluation of the stomach and bowel is limited without oral contrast. Evaluation of the solid organ is limited without IV contrast. There is a single borderline sized lymph node along the iliac chain bilaterally. The gallbladder is collapsed, but appears normal. The colon is collapsed limiting its evaluation. The appendix is not well seen. There is no free air. There is no free fluid and his bladder appears to be normal and given that he continues to have to bleed, a decision was made to transfer him to [facility] to consult the Gastroenterology team as he might require upper and lower GI endoscopy. PHYSICAL EXAMINATION: GENERAL: On the day of discharge, the patient looked pale, no jaundice, cyanosis, no lymphadenopathy, no thyromegaly, no jugular venous distention. No limb edema. VITAL SIGNS: His heart rate was 89, blood pressure was 122/75, temperature was 98.2, respiratory rate was 24 and his oxygen saturation was 93% on 5 liters of oxygen by nasal cannula. HEAD, EYES, EARS, NOSE, AND THROAT: Normocephalic, atraumatic. NECK: Supple. HEART: Normal first and second heart sounds, no gallop, rub or murmur. CHEST: Showed central trachea with equally reduced expansion, reduced air entry, vesicular breath sounds. I could not appreciate any crepitation or rhonchi. ABDOMEN: Markedly distended, soft, nontender. NEUROLOGIC: He was awake, alert, responding appropriately. LABORATORY DATA: His lab work on the day of discharge showed a hemoglobin of 6.9, hematocrit 22. His chemistry showed a serum sodium 134, potassium 3.7, chloride 100, bicarbonate 32, anion gap of 2, BUN 29, creatinine 1.3. Estimated GFR was 54 mL per minute. His glucose was 373 and calcium was 7.8. His most recent prothrombin time was 11.1 and INR 1.2. He was transferred to [facility] to continue on all his medications including albuterol sulfate 1 puff every 4 hours, allopurinol 300 mg daily, amlodipine besylate 10 mg once a day, aripiprazole for Abilify 30 mg once a day, aspirin 81 mg once a day. He is on Biotin 5000 mcg p.o. 3 times a day. He is also on bumetanide 1 mg daily, dextromethorphan/promethazine 5 mL every 4 hours, doxycycline hyclate 100 mg twice a day, duloxetine 60 mg daily, fenofibrate 54 mg once a day, glucosamine/chondroitin sulfate 1 tablet daily. He is on Humulin insulin 40 units subcutaneously daily with breakfast and he is on 50 units subcutaneously with supper and 20 units with lunch. He is also on linagliptin, Tradjenta 5 mg daily, lisinopril 20 mg once a day, magnesium oxide 400 mg daily, metformin 500 mg 3 times a day, methadone 10 mg twice a day, multivitamin one tablet once a day, prednisone 50 mg once a day. FINAL DISCHARGE DIAGNOSES: 1. Blood loss anemia, status post 3 units of packed RBCs. Unfortunately, his H and H continued to drift down and the day of discharge, it was 6.9 and 22. As per Cardiology recommendation, his Xarelto was discontinued. We continued as well as aspirin. 2. Other medical problems include type 2 diabetes mellitus. 3. Hypertension. 4. Hyperlipidemia. 5. Coronary artery disease status post myocardial infarction, status post drug-eluting stent deployment to his right coronary artery in August of this year. He is known also to have chronic obstructive pulmonary disease, on 6 liters of oxygen, atrial fibrillation/multifocal atrial tachycardia. He is also known to have morbid obesity and obstructive sleep apnea. KAMINI/RADHA/WILLY DR: KAMINI/bell TID: [id number]
== END 2021-02-04 19:57 | disposition short-term general hospital (02) | DRG 812 ==
LOC: ER 17:15 → 1 SOUTH 18:56
PROVIDERS: ADMIT Internal Medicine; ATTEND Internal Medicine
PROC: 30233N1 Transfusion of Nonautologous Red Blood Cells into Peripheral Vein, Percutaneous Approach (ICD-10-PCS; principal; 2021-02-02)
DX: D50.0 Iron deficiency anemia secondary to blood loss (chronic) (principal); E11.65 Type 2 diabetes mellitus with hyperglycemia; I11.0 Hypertensive heart disease with heart failure; I25.10 Atherosclerotic heart disease of native coronary artery without angina pectoris; E78.5 Hyperlipidemia, unspecified; E78.00 Pure hypercholesterolemia, unspecified; I48.91 Unspecified atrial fibrillation; I50.9 Heart failure, unspecified; E86.0 Dehydration; E66.01 Morbid (severe) obesity due to excess calories; G47.33 Obstructive sleep apnea (adult) (pediatric); F17.210 Nicotine dependence, cigarettes, uncomplicated; I25.2 Old myocardial infarction; J44.9 Chronic obstructive pulmonary disease, unspecified; Z20.822 Contact with and (suspected) exposure to COVID-19; Z79.01 Long term (current) use of anticoagulants; Z82.3 Family history of stroke; Z98.42 Cataract extraction status, left eye; Z99.81 Dependence on supplemental oxygen; Z98.41 Cataract extraction status, right eye; Z95.5 Presence of coronary angioplasty implant and graft; Z88.2 Allergy status to sulfonamides; Z88.8 Allergy status to other drugs, medicaments and biological substances; Z68.39 Body mass index [BMI] 39.0-39.9, adult
CPT/HCPCS: 36415; 36430; 71250; 74150; 80048; 80053; 81001; 82274; 82607; 82728; 82947; 83540; 83550; 85007; 85014; 85018; 85025; 85610; 86850; 86900; 86901; 86920; 87086; 87426; 94640; 94760; J1815; P9016; U0003; 99285-25; J7030